=== PATIENT | male | born 1955 | race Caucasian/White ===

== ENCOUNTER 2021-09-16 13:37 | Emergency (ER) | payer OTHER ==
[2021-09-16 14:31] LABS: Absolute Lymphocytes (CBC) 1.5 K/uL (0.7-4.9); Basophils % 1.8 % (0-1.3); Hematocrit 40.3 % (39.6-49.0); Lymphocytes % 24.1 % (15.3-44.8); MPV 7.8 fL (7.6-11.3); RBC Red Blood Cell Count 4.63 M/uL (4.33-5.43)
[2021-09-16 14:48] LABS: ALT/SGPT 20 U/L (12-78); AST/SGOT 13 U/L (15-37); Alkaline Phosphatase 58 U/L (45-117); BUN Blood Urea Nitrogen 24 mg/dL (7-18); Bicarbonate 32 mmol/L (21-32); Bilirubin Direct < 0.1 mg/dL (0-0.2); Bilirubin Total 0.2 mg/dL (0.2-1.0); Glucose Level 115 mg/dL (74-106); Lipase 90 U/L (73-393); Potassium 4.4 mmol/L (3.5-5.1); Protein, Total 7.7 g/dL (6.4-8.2); Sodium Level 141 mmol/L (136-145)
--- NOTE | 2021-09-16 15:08 | ER ---
Nurse's Notes [facility] Name: Yovanny Post Age: 66 yrs Sex: Male : 1955 Arrival Date: 09/16/2021 Time: 13:40 Bed 6 Private MD: Diagnosis: Normal exam. Normal lab values. Presentation: 09/16 13:40 Chief complaint: EMS states: VSS. Sent in for K and NA elevation. Coronavirus screen: ll1 Client denies travel out of the [place] in the last 14 days. At this time, the client does not indicate any symptoms associated with coronavirus-19. Ebola Screen: Patient denies travel to an Ebola-affected area in the 21 days before illness onset. Risk Assessment: Do you want to hurt yourself or someone else? Patient reports no desire to harm self or others. Onset of symptoms was September 16, 2021. 13:40 Method Of Arrival: EMS: [facility] 13:40 Acuity: SONNY 3 [facility] 13:45 Initial Sepsis Screen: Does the patient meet any 2 criteria? No. Patient's initial 1 sepsis screen is negative. Does the patient have a suspected source of infection? No. Patient's initial sepsis screen is negative. 13:53 Chief complaint: Patient states: No complaints. 1 Triage Assessment: 13:45 General: Appears in no apparent distress. comfortable, Behavior is cooperative, bp appropriate for age, fussy. Pain: Denies pain. EENT: BLIND BASELINE. Neuro: Oriented to Appropriate for age LEFT SIDED HEMIPLEGIA FROM PREVIOUS CVA. Cardiovascular: No deficits noted. Respiratory: No deficits noted. GI: No signs and/or symptoms were reported involving the gastrointestinal system. : No signs and/or symptoms were reported regarding the genitourinary system. Derm: No deficits noted. Musculoskeletal: No deficits noted. Historical: - Allergies: 13:41 No Known Allergies; ll1 - PMHx: 13:43 stroke; insomnia; depression; neuropathy; GERD; Osteoarthritis; rhabdomyolysis; UTI; ll1 prostate problems; - PSHx: 13:43 Unable to Obtain; ll1 - Immunization history:: Adult Immunizations up to date, Client reports receiving the 2nd dose of the Covid vaccine. - Social history:: Smoking status: Patient reports the use of cigarette tobacco products, smokes one pack cigarettes per day. Screenin:45 Abuse screen: Denies threats or abuse. Denies injuries from another. Nutritional bp screening: No deficits noted. Tuberculosis screening: No symptoms or risk factors identified. Fall Risk None identified. Assessment: 13:45 Reassessment: SEE TRIAGE NOTE. bp 15:19 Reassessment: No changes from previously documented assessment. Patient and/or family bp updated on plan of care and expected duration. Pain level reassessed. CLINICALS FAXED TO [facility] FOR EVAL BY FRAN. 15:43 Reassessment: EMS AT B/S FOR TRANSPORT HOME. bp Vital Signs: 13:53 BP 155 / 93; Pulse 97; Resp 20; Temp 97.9; Pulse Ox 92% on R/A; Weight 82.55 kg; Height ll1 5 ft. 8 in. (172.72 cm); Pain 0/10; 15:49 BP 143 / 81; Pulse 98; Resp 15; Pulse Ox 100% ; bp 13:53 Body Mass Index 27.67 (82.55 kg, 172.72 cm) ll1 ED Course: 13:40 Patient arrived in ED. ll1 13:40 Abiodun Connolly MD is Attending Physician. sp3 13:41 Triage completed. ll1 13:42 Arm band placed on Patient placed in an exam room, on a stretcher. ll1 13:44 Panfilo Cabrera RN is Primary Nurse. bp 13:45 Patient has correct armband on for positive identification. Bed in low position. Call bp light in reach. Side rails up X2. 13:53 EKG done, by ED staff, reviewed by Abiodun Connolly MD. em1 15:45 No provider procedures requiring assistance completed. IV discontinued. bp Administered Medications: No medications were administered Outcome: 15:08 Discharge ordered by . sp3 15:45 Discharged to snf. Report called to [facility] bp 15:45 Condition: stable 15:45 Discharge instructions given to patient, snf, Instructed on discharge instructions, follow up and referral plans. medication usage. 15:52 Patient left the ED. iw Signatures: Mary Anne Arredondo RN RN iw Martinez, Eric em1 Panfilo Cabrera RN RN bp Lewis, Lynsay, RN RN ll1 Abiodun Connolly MD MD sp3 Corrections: (The following items were deleted from the chart) 13:55 13:43 Social history: Smoking status: unknown ll1 ll1
--- NOTE | 2021-09-16 15:09 | EDPHYS ---
Physician Documentation [facility] Name: Yovanny Post Age: 66 yrs Sex: Male : 1955 Arrival Date: 09/16/2021 Time: 13:40 Bed 6 Private MD: ED Physician Abiodun Connolly HPI: 09/16 13:44 This 66 yrs old Male presents to ER via EMS with complaints of Abnormal Lab sp3 Results. 13:44 66-year-old male with a history of prior CVA who is presenting from care home via sp3 EMS for chief complaint abnormal laboratory values. Patient and EMS state that his sodium and potassium levels were abnormal with a sodium level of 159. Patient has no complaints whatsoever and denies headache, neck pain, chest pain, shortness breath, abdominal pain, nausea, vomiting, diarrhea, back pain, rash, focal neurological complaints, syncope, change in baseline strength, or any other findings at this time.. Historical: - Allergies: 13:41 No Known Allergies; ll1 - PMHx: 13:43 stroke; insomnia; depression; neuropathy; GERD; Osteoarthritis; rhabdomyolysis; UTI; ll1 prostate problems; - PSHx: 13:43 Unable to Obtain; ll1 - Immunization history:: Adult Immunizations up to date, Client reports receiving the 2nd dose of the Covid vaccine. - Social history:: Smoking status: Patient reports the use of cigarette tobacco products, smokes one pack cigarettes per day. ROS: 13:45 Constitutional: Negative for fever, chills, and weight loss, Eyes: Negative for injury, sp3 pain, redness, and discharge, ENT: Negative for injury, pain, and discharge, Neck: Negative for injury, pain, and swelling, Cardiovascular: Negative for chest pain, palpitations, and edema, Respiratory: Negative for shortness of breath, cough, wheezing, and pleuritic chest pain, Abdomen/GI: Negative for abdominal pain, nausea, vomiting, diarrhea, and constipation, Back: Negative for injury and pain, MS/Extremity: Negative for injury and deformity, Skin: Negative for injury, rash, and discoloration, Neuro: Negative for headache, weakness, numbness, tingling, and seizure, Psych: Negative for depression, anxiety, suicide ideation, homicidal ideation, and hallucinations, Allergy/Immunology: Negative for hives, rash, and allergies, Endocrine: Negative for neck swelling, polydipsia, polyuria, polyphagia, and marked weight changes, Hematologic/Lymphatic: Negative for swollen nodes, abnormal bleeding, and unusual bruising. 13:45 All other systems are negative. Exam: 13:45 Constitutional: This is a well developed, well nourished patient who is awake, alert, sp3 and in no acute distress. Head/Face: Normocephalic, atraumatic. Eyes: Pupils equal round and reactive to light, extra-ocular motions intact. Lids and lashes normal. Conjunctiva and sclera are non-icteric and not injected. Cornea within normal limits. Periorbital areas with no swelling, redness, or edema. ENT: Nares patent. No nasal discharge, no septal abnormalities noted. External auditory canals are clear. Oropharynx with no redness, swelling, or masses, exudates, or evidence of obstruction, uvula midline. Mucous membranes moist. Neck: Trachea midline, no thyromegaly or masses palpated, and no cervical lymphadenopathy. Supple, full range of motion without nuchal rigidity, or vertebral point tenderness. No Meningismus. Chest/axilla: Normal chest wall appearance and motion. Nontender with no deformity. No lesions are appreciated. Cardiovascular: Regular rate and rhythm with a normal S1 and S2. No gallops, murmurs, or rubs. Normal PMI, no JVD. No pulse deficits. Respiratory: Lungs have equal breath sounds bilaterally, clear to auscultation and percussion. No rales, rhonchi or wheezes noted. No increased work of breathing, no retractions or nasal flaring. Abdomen/GI: Soft, non-tender, with normal bowel sounds. No distension or tympany. No guarding or rebound. No evidence of tenderness throughout. Back: No spinal tenderness. No costovertebral tenderness. Full range of motion. Skin: Warm, dry with normal turgor. Normal color with no rashes, no lesions, and no evidence of cellulitis. MS/ Extremity: Pulses equal, no cyanosis. Neurovascular intact. Full, normal range of motion. Psych: Awake, alert, with orientation to person, place and time. Behavior, mood, and affect are within normal limits. 13:45 Neuro: Old left-sided deficits otherwise grossly negative neurological exam. Patient's mentation and mental status are normal.. Vital Signs: 13:53 BP 155 / 93; Pulse 97; Resp 20; Temp 97.9; Pulse Ox 92% on R/A; Weight 82.55 kg; Height ll1 5 ft. 8 in. (172.72 cm); Pain 0/10; 15:49 BP 143 / 81; Pulse 98; Resp 15; Pulse Ox 100% ; bp 13:53 Body Mass Index 27.67 (82.55 kg, 172.72 cm) ll1 MDM: 13:41 Patient medically screened. sp3 13:46 Data reviewed: vital signs, nurses notes, EMS record. ED course: Patient presents with sp3 abnormal labs. Will obtain repeat laboratory values, EKG, and observation. Patient is stable and in no acute distress.. 15:07 ED course: EKG demonstrates normal sinus rhythm at 94 bpm with no peak T waves or other sp3 abnormalities. Nonspecific ST/T changes, normal QRS, normal intervals.. ED course: Today's laboratory values demonstrate a normal sodium and a normal potassium. BUN and creatinine are elevated consistent with prior laboratory values in the same range. At this time given that patient feels completely normal and at baseline there is no need for further work-up. We will discharge back to the care home at this time.. 09/16 13:43 Order name: Basic Metabolic Panel; Complete Time: 15:04 sp3 09/16 13:43 Order name: CBC with Diff; Complete Time: 15:04 sp3 09/16 13:43 Order name: Hepatic Function; Complete Time: 15:04 sp3 09/16 13:43 Order name: Lipase; Complete Time: 15:04 sp3 09/16 13:43 Order name: IV Saline Lock; Complete Time: 14:35 sp3 09/16 13:43 Order name: Labs collected and sent; Complete Time: 14:35 sp3 09/16 13:44 Order name: EKG - Nurse/Tech; Complete Time: 13:53 sp3 Administered Medications: No medications were administered Disposition Summary: 09/16/21 15:08 Discharge Ordered Location: Home sp3 Condition: Stable sp3 Diagnosis - Normal exam. Normal lab values. sp3 Followup: sp3 - With: Private Physician - When: - Reason: Continuance of care Discharge Instructions: - Discharge Summary Sheet sp3 - Health Maintenance After Age 66 sp3 Forms: - Medication Reconciliation Form sp3 - Thank You Letter sp3 - Antibiotic Education sp3 - Prescription Opioid Use sp3 Signatures: Dispatcher [employer] Librado Glynn RN RN ll1 Abiodun Connolly MD MD sp3 Corrections: (The following items were deleted from the chart) 13:55 13:43 Social history: Smoking status: unknown 1 1
[2021-09-16 16:04] VITALS: BP 155/93; TEMP 97.9; O2SAT 92
--- NOTE | 2021-09-18 11:27 | EKG ---
Test Date: 2021-09-16 Test Time: 13:52:33 Warehouse Sorter: MANISHA MEASUREMENT RESULTS: Intervals: Rate: 94 ID: [id number] QRSD: 70 QT: 364 QTc: 455 Carter: P: 67 ID: [id number] QRS: 81 T: 52 INTERPRETIVE STATEMENTS: Normal sinus rhythm ST abnormality, possible digitalis effect Abnormal ECG No previous ECG available for comparison Electronically Signed On 09-18-21 11:21:01 FOOD COUNTER ATTENDANT by Gelacio Acevedo
--- OUTSIDE RECORDS SUMMARY | 2021-09-21 16:26 | XMS REPORT | Continuity of Care Document ---
:1955 Author Organization [facility] t Address [address] [place] [address] Care Team Providers Name Role Phone HAYES CONNOR M.D. Attending Clinician Unavailable Problems Condition Condition Condition Status Onset Resolution Last Treating Co mments Source Name Details Category Date Date Treatment Clinician Date Psoriatic Psoriatic Problem Active [facility] arthritis arthritis [facility] [place] [facility] Long-term Long-term Problem Active [facility] vers use of use of [facility] [place]risk [place] medication medication [facility] ans History of History of Problem Resolve [facility] psoriasis psoriasis d [facility] [place] [facility] H/O H/O Problem Resolve [facility] completed completed d ity of stroke stroke [place] [facility] History of History of Problem Resolve [facility] Disorder Disorder d ity of of bile of bile [place] acid and acid and Physic i cholestero cholestero an s l l metabolism metabolism , , unspecifie unspecifie d d History of History of Problem Resolve Univers gastroesop gastroesop d it y of hageal hageal [place] reflux reflux Physici (GERD) (GERD) ans History of History of Problem Resolve [facility] gout gout d [facility] [place] [facility] History of History of Problem Resolve Univers hypertensi hypertensi d it y of on on [place] [facility] History of History of Problem Resolve Univers Multiple Multiple d [place] joint pain [place] pain [place] [facility] Allergies, Adverse Reactions, Alerts This patient has no known allergies or adverse reactions. Social History Smoking Status Start Date Stop Date Source Never smoker [facility] Medications Ordered Filled Start Stop Current Ordering Indication Dosage Frequency Signature Comments Components Source Medication Medication Date Date Medication? Clinician (SIG) Name Name Enbrel Enbrel Yes HAYES INJECT 50 Un alina SureClick SureClick 6-12 NIKOLAS Brito MCG Weekly ity of 50 MG/ML 50 MG/ML 00:00: [place] Subcutaneou Subcutaneou 00 P hysici s Solution s Solution ans Auto-inject Auto-inject or or Enbrel Enbrel Yes Univers SureClick SureClick ity o f 50 MG/ML 50 MG/ML [place] Subcutaneou Subcutaneou P hysici s Solution s Solution ans Auto-inject Auto-inject or or Humira 40 Humira 40 Yes Unive rs MG/0.8ML MG/0.8ML ity of Subcutaneou Subcutaneou [place] Prefilled s Prefilled P hysici Syringe Kit Syringe Kit a ns Enpresse-28 Enpresse-28 Yes U nivers TABS TABS [facility] [place] [facility] NIFEdipine NIFEdipine Yes Uni vers TBCR TBCR [facility] [place] [facility] Vitamin C Vitamin C Yes Unive rs CAPS CAPS [facility] [place] [facility] Ranitidine Ranitidine Yes Uni vers TABS TABS [facility] [place] [facility] Gabapentin Gabapentin Yes Uni vers TABS TABS [facility] [place] [facility] Allopurinol Allopurinol Yes U nivers TABS TABS [facility] [place] [facility] Atorvastati Atorvastati Yes U nivers n Calcium n Calcium ity o f TABS TABS [place] [facility] Vital Signs Vital Name Observation Time Observation Value Comments Source BP Systolic 2019-04-20 16:49:00 132 mm[Hg] [facility] BP Diastolic 2019-04-20 16:49:00 76 mm[Hg] [facility] Heart Rate 2019-04-20 16:49:00 99 /min [facility] Procedures Procedure Date / Time Performed Performing Clinician Sourc e [QLH] CBC (INCLUDES 2019-04-20 00:00:00 [facility] DIFF/PLT) Physicians [QLH] HEPATIC FUN[facility] 2019-04[facility]20 [facility] [QLH] C-REACTIVE 2019-04-20 00:00:00 [facility] PROTEIN Physicians [QL] SED RATE BY 2019-04-20 00:00:00 [facility] MODIFIED WESTERGREN Physicians [L] QuantiFERON-TB 2019-04-20 00:00:00 [facility] Gold Plus Physicians [QLH] CREATININE 2019-04-20 00:00:00 [facility] W/EGFR Physicians Plan of Care Planned Activity Planned Date Details Comments Source Diagnostic Test 2019-09-09 [QL] CBC (INCLUDES [facility] Pending 00:00:00 DIFF/PLT) [code = Physicians [QL] CBC (INCLUDES DIFF/PLT)] Diagnostic Test 2019-09-09 [QLH] HEPATIC [facility] Pending 00:00:00 FUNCTION PANEL [code Physici ans = [QL] HEPATIC FUNCTION PANEL] Diagnostic Test 2019-09-09 [QLH] C-REACTIVE [facility] Pending 00:00:00 PROTEIN [code = Physicians [QL] C-REACTIVE PROTEIN] Diagnostic Test 2019-09-09 [QLH] SED RATE BY [facility] Pending 00:00:00 MODIFIED WESTERGREN Physicia ns [code = [QL] SED RATE BY MODIFIED WESTERGREN] Diagnostic Test 2019-09-09 [L] QuantiFERON-TB [facility] Pending 00:00:00 Gold Plus [code = Physicians [L] QuantiFERON-TB Gold Plus] Diagnostic Test 2019-09-09 [QLH] CREATININE [facility] Pending 00:00:00 W/EGFR [code = [QL] Physici ans CREATININE W/EGFR] Diagnostic Test 2019-09-09 [QL] CBC (INCLUDES [facility] Pending 00:00:00 DIFF/PLT) [code = Physicians [QL] CBC (INCLUDES DIFF/PLT)] Diagnostic Test 2019-09-09 [QL] HEPATIC [facility] Pending 00:00:00 FUNCTION PANEL [code Physici ans = [QL] HEPATIC FUNCTION PANEL] Diagnostic Test 2019-09-09 [QLH] C-REACTIVE [facility] Pending 00:00:00 PROTEIN [code = Physicians [QL] C-REACTIVE PROTEIN] Diagnostic Test 2019-09-09 [QLH] SED RATE BY [facility] Pending 00:00:00 MODIFIED WESTERGREN Physicia ns [code = [QLH] SED RATE BY MODIFIED WESTERGREN] Diagnostic Test 2019-09-09 [L] QuantiFERON-TB [facility] Pending 00:00:00 Gold Plus [code = Physicians [L] QuantiFERON-TB Gold Plus] Diagnostic Test 2019-09-09 [QLH] CREATININE [facility] [place] Pending 00:00:00 W/EGFR [code = [[facility]] Physici ans CREATININE W/EGFR] Encounters Start End Encounter Admission Attending Care Care Encounter Source Date/Time Date/Time Type Type Clinicians Facility Department ID 2020-06-15 2020-06-15 Inpatient E [facility] MED [id number] 20:20:00 17:45:00 2019-04-20 2019-04-20 ANA Connolly Multispecia [id number] Univers 15:45:00 15:45:00 t; HAYES CONNOR [facility] 2019-04-06 2019-04-06 ANA Connolly [id number] Univers 16:00:00 16:00:00 t; HAYES CONNOR Orthopedic i ty sofy KOO M.D. [facility] [place] [facility] Trace 1 ans 2018-07-16 2018-07-16 ANA Connolly [facility] [id number] Univers 15:15:00 15:15:00 t; HAYES CONNOR [facility] [place], M.D. [place] M.D. Physici ans 2017-10-23 2017-10-23 ANA Connolly [facility] [id number] Univers 09:00:00 09:00:00 t; HAYES CONNOR [facility] [place], M.D. [place] M[facility]D. Physici ans 2017-09-16 2017-09-16 ANA Connolly [id number] Univers 09:30:00 09:30:00 t; HAYES CONNOR [facility] [place], M.D. [place] M.D. Physici ans 2017-06-05 2017-06-05 ANA Connolly [id number] Univers 08:30:00 08:30:00 t; HAYES CONNOR [facility] [place], M.D. [place] M.D. Physici ans Results This patient has no known results.
== END 2021-09-16 15:52 | disposition home or self-care (01) ==
LOC: ER 13:37
DX: Z71.1 Person with feared health complaint in whom no diagnosis is made (principal)
CPT/HCPCS: 36415; 80048; 80076; 83690; 85025; 93005; 99283

== ENCOUNTER 2022-05-06 16:45 | Inpatient (IN) | payer OTHER ==
--- OUTSIDE RECORDS SUMMARY | 2022-05-06 16:48 | XMS REPORT | Continuity of Care Document ---
:1955 Author Organization [facility] t Address [address] [place] [address] Care Team Providers Name Role Phone CYN BELTRAN Attending Clinician Unavailable HAYES CONNOR M.D. Attending Clinician Unavailable CYN BELTRAN Admitting Clinician Unavailable Problems Condition Condition Condition Status Onset Resolution Last Treating Co mments Source Name Details Category Date Date Treatment Clinician Date Psoriatic Psoriatic Problem Active [facility] arthritis arthritis Phys ici ans Long-term Long-term Problem Active [facility] use of use of Physici high-risk high-risk ans medication medication History of History of Problem Resolve [facility] psoriasis psoriasis d Phys ici ans H/O H/O Problem Resolve UT completed completed d Phys ici stroke stroke ans History of History of Problem Resolve UT Disorder Disorder d Physic i of bile of bile ans acid and acid and cholestero cholestero l l metabolism metabolism , , unspecifie unspecifie d d History of History of Problem Resolve UT gastroesop gastroesop d Ph ysici hageal hageal ans reflux reflux (GERD) (GERD) History of History of Problem Resolve UT gout gout d Physici ans History of History of Problem Resolve UT hypertensi hypertensi d Ph ysici on on ans History of History of Problem Resolve UT Multiple Multiple d Physic i joint pain joint pain an s Allergies, Adverse Reactions, Alerts This patient has no known allergies or adverse reactions. Social History Smoking Status Start Date Stop Date Source Never smoker [facility] Medications Ordered Filled Start Stop Current Ordering Indication Dosage Frequency Signature Comments Components Source Medication Medication Date Date Medication? Clinician (SIG) Name Name Enbrel Enbrel 2019-0 Yes FAYYAZ INJECT 50 [facility] SureClick SureClick 6-12 NIKOLAS Brito MCG Weekly Physici 50 MG/ML 50 MG/ML 00:00: ans Subcutaneou Subcutaneou 00 s Solution s Solution Auto-inject Auto-inject or or Enbrel Enbrel Yes UT SureClick SureClick Physi ci 50 MG/ML 50 MG/ML ans Subcutaneou Subcutaneou s Solution s Solution Auto-inject Auto-inject or or Humira 40 Humira 40 Yes UT MG/0.8ML MG/0.8ML Physici Subcutaneou Subcutaneou a ns s Prefilled s Prefilled Syringe Kit Syringe Kit Enpresse-28 Enpresse-28 Yes U T TABS TABS Physici ans NIFEdipine NIFEdipine Yes UT TBCR TBCR Physici ans Vitamin C Vitamin C Yes UT CAPS CAPS Physici ans Ranitidine Ranitidine Yes UT TABS TABS Physici ans Gabapentin Gabapentin Yes UT TABS TABS Physici ans Allopurinol Allopurinol Yes U T TABS TABS Physici ans Atorvastati Atorvastati Yes U T n Calcium n Calcium Physi ci TABS TABS ans Vital Signs Vital Name Observation Time Observation Value Comments Source BP Systolic 2019-04-20 16:49:00 132 mm[Hg] [facility] BP Diastolic 2019-04-20 16:49:00 76 mm[Hg] [facility] Heart Rate 2019-04-20 16:49:00 99 /min [facility] Procedures Procedure Date / Time Performed Performing Clinician Sourc e [QLH] CBC (INCLUDES 2019-04-20 00:00:00 [facility] DIFF/PLT) [QLH] HEPATIC FUNCTION PANEL 2019-04-20 00:00:00 [facility] [QLH] C-REACTIVE PROTEIN 2019-04-20 00:00:00 [facility] [QLH] SED RATE BY MODIFIED 2019-04-20 00:00:00 [facility] WESTERGREN [L] QuantiFERON-TB Gold Plus 2019-04-20 00:00:00 [facility] [QLH] CREATININE W/EGFR 2019-04-20 00:00:00 [facility] Plan of Care Planned Activity Planned Date Details Comments Source Diagnostic Test 2019-09-09 00:00:00 [L] QuantiFERON-TB [facility] Pending Gold Plus [code = [L] QuantiFERON-TB Gold Plus] Diagnostic Test 2019-09-09 00:00:00 [QLH] CREATININE [facility] Pending W/EGFR [code = [QLH] CREATININE W/EGFR] Diagnostic Test 2019-09-09 00:00:00 [QLH] CBC (INCLUDES [facility] Pending DIFF/PLT) [code = [QLH] CBC (INCLUDES DIFF/PLT)] Diagnostic Test 2019-09-09 00:00:00 [QLH] HEPATIC [facility] Pending FUNCTION PANEL [code = [QLH] HEPATIC FUNCTION PANEL] Diagnostic Test 2019-09-09 00:00:00 [QLH] C-REACTIVE [facility] Pending PROTEIN [code = [QLH] C-REACTIVE PROTEIN] Diagnostic Test 2019-09-09 00:00:00 [QLH] SED RATE BY [facility] Pending MODIFIED WESTERGREN [code = [QLH] SED RATE BY MODIFIED WESTERGREN] Diagnostic Test 2019-09-09 00:00:00 [L] QuantiFERON-TB [facility] Pending Gold Plus [code = [L] QuantiFERON-TB Gold Plus] Diagnostic Test 2019-09-09 00:00:00 [QLH] CREATININE [facility] Pending W/EGFR [code = [QLH] CREATININE W/EGFR] Diagnostic Test 2019-09-09 00:00:00 [QLH] CBC (INCLUDES [facility] Pending DIFF/PLT) [code = [QLH] CBC (INCLUDES DIFF/PLT)] Diagnostic Test 2019-09-09 00:00:00 [QLH] HEPATIC [facility] Pending FUNCTION PANEL [code = [QLH] HEPATIC FUNCTION PANEL] Diagnostic Test 2019-09-09 00:00:00 [QLH] C-REACTIVE [facility] Pending PROTEIN [code = [QLH] C-REACTIVE PROTEIN] Diagnostic Test 2019-09-09 00:00:00 [QLH] SED RATE BY [facility] Pending MODIFIED WESTERGREN [code = [QLH] SED RATE BY MODIFIED WESTERGREN] Encounters Start End Encounter Admission Attending Care Care Encounter Source Date/Time Date/Time Type Type Clinicians Facility Department ID 2020-06-15 2020-06-22 Inpatient E [facility] [id number] [facility] 20:20:00 15:10:00 , ROSEMIN 2019-04-20 2019-04-20 Appointmen ANA CONNOR Multispecia [id number] [place] 15:45:00 15:45:00 t; HAYES CONNOR lty - Daryl Jones M.D. 2019-04-06 2019-04-06 Appointmen ANA CONNOR [facility] [id number] [place] 16:00:00 16:00:00 t; HAYES CONNOR Orthopedic P hysijulián KOO M.D. Surgery - fifi Brito [address] 1 2018-07-16 2018-07-16 AppointANA Britt [facility] [id number] [place] 15:15:00 15:15:00 t; HAYES CONNOR Phys ici FAYYAZ, M.D. ans M.D. 2017-10-23 2017-10-23 Appointmen ANA CONNOR [facility] [id number] [place] 09:00:00 09:00:00 t; HAYES CONNOR Phys ici FAYYAZ, M.D. ans M.D. 2017-09-16 2017-09-16 Appointmen ANA CONNOR [facility] [id number] [place] 09:30:00 09:30:00 t; HAYES CONNOR Phys ici FAYYAZ, M.D. ans M.D. 2017-06-05 2017-06-05 Appointmen ANA CONNOR [facility] [id number] [place] 08:30:00 08:30:00 t; HAYES CONNOR Phys ici FAYYAZ, M.D. ans M.D. Results This patient has no known results.
[2022-05-06 17:39] LABS: Absolute Lymphocytes (CBC) 1.1 K/uL (0.7-4.9); Hematocrit 42.5 % (39.6-49.0); Lymphocytes % 19.7 % (15.3-44.8); MCV 83.5 fL (80-100); RBC Red Blood Cell Count 5.09 M/uL (4.33-5.43)
[2022-05-06] MEDS ORDERED: ASPIRIN 81 MG CHEWABLE TABLET ONE (17:41)
[2022-05-06] MEDS ORDERED: CEFTRIAXONE 1000 MG/VIAL ONE (17:41)
[2022-05-06] MEDS ORDERED: ACETAMINOPHEN 500 MG TAB ONE (17:41)
[2022-05-06] MEDS ORDERED: NA CHLORIDE 0.9% 50 ML ONE (17:42)
[2022-05-06] MEDS ORDERED: NA CHLORIDE 0.9% 250 ML ONE (17:42)
[2022-05-06] MEDS ORDERED: LEVALBUTEROL 1.25 MG/3 ML NEB ONE (17:42)
[2022-05-06] MEDS ORDERED: AZITHROMYCIN 500 MG INJ IVPB ONE (17:42)
[2022-05-06] MEDS ORDERED: IPRATROPIUM BROM 0.5MG/2.5ML ONE (17:42)
[2022-05-06 17:43] LABS: Protime INR 1.04
--- NOTE | 2022-05-06 17:48 | RAD REPORT ---
EXAM DESCRIPTION: RAD - Chest Single View - 05/06/2022 5:33 pm CLINICAL HISTORY: COUGH Chest pain. COMPARISON: No comparisons FINDINGS: Portable technique limits examination quality. The lungs are emphysematous but grossly clear. The heart is normal in size. No displaced fractures. IMPRESSION: Mild COPD.
[2022-05-06 18:04] LABS: Albumin 3.4 g/dL (3.4-5.0); Bilirubin Direct 0.1 mg/dL (0-0.2); Bilirubin Total 0.3 mg/dL (0.2-1.0); C-Reactive Protein 34.1 mg/L (<3.00); Ferritin 89.2 ng/mL (26-388); Magnesium 1.5 mg/dL (1.8-2.4); Potassium 3.6 mmol/L (3.5-5.1); Protein, Total 7.2 g/dL (6.4-8.2)
[2022-05-06 18:08] LABS: Troponin High Sensitivity 81.6 pg/mL (<58.9)
[2022-05-06] MEDS ORDERED: dexAMETHasone 10 MG/ML VIAL ONE (18:16)
[2022-05-06] MEDS ORDERED: NA CHLORIDE 0.9% 1,000 ML ONE (18:16)
[2022-05-06 18:38] LABS: Urine Blood Negative (Negative); Urine Glucose Negative (Negative); Urine Protein Negative (Negative); Urine pH 6.5 (5.0-7.0)
[2022-05-06 19:00] LABS: Urine Bacteria NONE SEEN /HPF (NONE SEEN); Urine RBC NONE SEEN /HPF (NONE SEEN)
--- NOTE | 2022-05-06 19:31 | EDPHYS ---
Physician Documentation [facility] Name: Yovanny Post Age: 66 yrs Sex: Male : 1955 Arrival Date: 05/06/2022 Time: 16:50 Bed 2 Private MD: ED Physician Kyree Rg HPI: 05/06 17:05 This 66 yrs old Male presents to ER via EMS with complaints of Shortness of Breath. cp 17:05 The patient has shortness of breath at rest. Onset: The symptoms/episode began/occurred cp today. 17:05 Duration: The symptoms are continuous, and are steadily getting worse. Associated signs cp and symptoms: Pertinent positives: productive cough, fever, Pertinent negatives: chest pain, diaphoresis, hemoptysis. Severity of symptoms: in the emergency department the symptoms have improved mildly. Patient is a resident of [facility] and was diagnosed with COVID-19 yesterday. EMS reports oxygen sats of 77% upon their arrival. Patient now requiring supplemental oxygen. Historical: - Allergies: 16:59 No Known Allergies; jb4 - PMHx: 16:59 Depression; insomnia; GERD; neuropathy; osteoarthritis; prostate problems; jb4 rhabdomyolysis; stroke; UTI; - Immunization history:: Adult Immunizations up to date. - Social history:: Smoking status: Patient reports the use of cigarette tobacco products, smokes one-half pack cigarettes per day, Patient uses alcohol. ROS: 17:10 Constitutional: Positive for body aches, fever. cp 17:10 Eyes: Negative for injury, pain, redness, and discharge. cp 17:10 Respiratory: Positive for cough, "sounds productive", shortness of breath. 17:10 ENT: Negative for drainage from ear(s), ear pain, sore throat, difficulty swallowing, cp difficulty handling secretions. 17:10 Cardiovascular: Negative for chest pain, edema, palpitations. 17:10 Abdomen/GI: Negative for abdominal pain, vomiting, diarrhea, constipation. 17:10 Neuro: Negative for altered mental status, headache, syncope. 17:10 All other systems are negative. Exam: 17:15 Constitutional: The patient appears in no acute distress, alert, awake, cp non-diaphoretic, non-toxic, well developed, well nourished. 17:15 Head/Face: Normocephalic, atraumatic. cp 17:15 Eyes: Periorbital structures: appear normal, Pupils: equal, round, and reactive to cp light and accomodation, Extraocular movements: intact throughout, Conjunctiva: normal, no exudate, no injection, Sclera: no appreciated abnormality, Lids and lashes: appear normal, bilaterally. 17:15 ENT: External ear(s): are unremarkable, Ear canal(s): are normal, clear, TM's: dullness, bilaterally, Nose: is normal, Mouth: Lips: moist, Oral mucosa: moist, Posterior pharynx: Airway: no evidence of obstruction, patent, Tonsils: are normal in appearance, swelling, is not appreciated, erythema, is not appreciated, exudate, is not appreciated. 17:15 Neck: ROM/movement: is normal, is supple, without pain, no range of motions limitations, no meningismus. 17:15 Chest/axilla: Inspection: normal. 17:15 Cardiovascular: Rate: tachycardic, Rhythm: irregular, Edema: is not appreciated, JVD: is not appreciated. 17:15 Respiratory: mild respiratory distress is noted, Respirations: labored breathing, cp shallow respirations, Breath sounds: bronchial sounds, that are moderate, are heard diffusely, stridor, is not appreciated, + upper airway congestion. wheezing: is not appreciated. 17:15 Abdomen/GI: Inspection: abdomen appears normal, Bowel sounds: active, all quadrants, Palpation: abdomen is soft and non-tender, in all quadrants. 17:15 Back: pain, is absent, ROM is normal. 17:15 Skin: cellulitis, is not appreciated, no rash present. 17:15 Neuro: Orientation: to person, place \\T\\ time. Mentation: is normal, Motor: moves all fours, strength is normal, Sensation: is normal. 17:25 ECG was reviewed by the Attending Physician. cp Vital Signs: 16:50 BP 162 / 76; Pulse 110; Resp 34; Temp 101.9; Pulse Ox 96% on 4 lpm NC; Weight 77.56 kg; jb4 Height 5 ft. 8 in. (172.72 cm); Pain 0/10; 18:20 BP 156 / 79; Pulse 108; Resp 33; Pulse Ox 93% on 2 lpm NC; jb4 19:04 Temp 98.2(O); jb4 19:30 BP 135 / 66; Pulse 105; Resp 26 S; Pulse Ox 91% on 3 lpm NC; aa9 21:35 BP 153 / 82; Pulse 96; Resp 26 S; Pulse Ox 93% on 3 lpm NC; aa9 16:50 Body Mass Index 26.00 (77.56 kg, 172.72 cm) jb4 MDM: 16:57 Patient medically screened. cp 19:20 Physician consultation: Coleen CHAVIRA was called at 19:20, was contacted at 19:20, cp regarding admission, to the telemetry unit. patient's condition. 20:35 Data reviewed: vital signs, nurses notes, lab test result(s), EKG, radiologic studies, cp CT scan, plain films. 20:35 Test interpretation: by ED physician or midlevel provider: ECG, plain radiologic cp studies. 05/06 16:57 Order name: Basic Metabolic Panel; Complete Time: 18:29 cp 05/06 18:29 Interpretation: Normal except: CRE 1.46; GFR 53. cp 05/06 16:57 Order name: CBC with Diff; Complete Time: 17:51 cp 05/06 17:51 Interpretation: Normal except: MCH 26.8; RDW 18.9; MN% 17.3. cp 05/06 16:57 Order name: LFT's; Complete Time: 18:29 cp 05/06 18:29 Interpretation: Normal except: AST 62; ALK 41; GLOB 3.8; A/G 0.9. cp 05/06 16:57 Order name: Magnesium; Complete Time: 18:29 cp 05/06 16:57 Order name: NT PRO-BNP; Complete Time: 18:29 cp 05/06 16:57 Order name: PT-INR; Complete Time: 17:51 cp 05/06 16:57 Order name: Troponin HS; Complete Time: 18:29 cp 05/06 16:57 Order name: CRP; Complete Time: 18:29 cp 05/06 16:57 Order name: Ferritin; Complete Time: 18:29 cp 05/06 16:57 Order name: Blood Culture Adult (2) cp 05/06 16:57 Order name: Lactate; Complete Time: 18:29 cp 05/06 16:57 Order name: Procalcitonin; Complete Time: 18:29 cp 05/06 16:57 Order name: Urine Microscopic Only; Complete Time: 19:14 cp 05/06 16:57 Order name: Influenza Screen (a \\T\\ B); Complete Time: 17:59 cp 05/06 16:57 Order name: XRAY Chest (1 view); Complete Time: 17:51 cp 05/06 16:57 Order name: EKG; Complete Time: 16:58 cp 05/06 16:57 Order name: COVID-19 SARS RT PCR (Document "Date of Onset" if Symptomatic); Complete cp Time: 19:14 05/06 18:33 Order name: CT Chest For PE Angio; Complete Time: 20:33 cp 05/06 18:39 Order name: Urine Dipstick-Ancillary; Complete Time: 19:14 EDMS 05/06 16:57 Order name: Cardiac monitoring; Complete Time: 17:01 cp 05/06 16:57 Order name: EKG - Nurse/Tech; Complete Time: 17:31 cp 05/06 16:57 Order name: IV Saline Lock; Complete Time: 17:31 cp 05/06 16:57 Order name: Labs collected and sent; Complete Time: 17:31 cp 05/06 16:57 Order name: O2 Per Protocol; Complete Time: 17:01 cp 05/06 16:57 Order name: O2 Sat Monitoring; Complete Time: 17:01 cp 05/06 16:57 Order name: Urine Dipstick-Ancillary (obtain specimen); Complete Time: 18:47 cp EC:25 Rate is 96 beats/min. Rhythm is irregular. QRS interval is normal. QT interval is cp normal. T waves are Inverted in lead aVR. Interpreted by me. Reviewed by me. Administered Medications: 17:45 Drug: Aspirin Chewable Tablet 324 mg Route: PO; jb4 21:59 Follow up: Response: No adverse reaction aa9 17:45 Drug: Tylenol 1000 mg Route: PO; jb4 22:00 Follow up: Response: No adverse reaction; Temperature is decreased aa9 17:45 Drug: Rocephin - (cefTRIAXone) 1 grams Route: IVPB; Infused Over: 30 mins; Site: right jb4 hand; 18:15 Follow up: Response: No adverse reaction; IV Status: Completed infusion; IV Intake: [id number] 17:52 Drug: Xopenex (levalbuterol) (3) 1.25 mg Route: Inhalation; jb4 17:52 Drug: AtroVENT (ipratropium) Aerosol 0.5 mg Route: Inhalation; jb4 17:52 CANCELLED (Physician Discretion): NS 0.9% (30 ml/kg) 30 ml/kg IV at bolus once; Sepsis cp Protocol 18:15 Drug: Zithromax (azithromycin) 500 mg Route: IVPB; Infused Over: 1 hrs; Site: right jb4 hand; 22:00 Follow up: Response: No adverse reaction; IV Status: Completed infusion; IV Intake: aa9 250ml 18:15 Drug: Decadron - Dexamethasone 6 mg Route: IVP; Site: right hand; jb4 18:47 Follow up: Response: No adverse reaction jb4 18:20 Drug: NS 0.9% 1000 ml Route: IV; Rate: 1 bolus; Site: right hand; jb4 22:00 Follow up: Response: No adverse reaction; IV Status: Completed infusion; IV Intake: aa9 1000ml 21:30 Drug: Magnesium Sulfate 1 grams Route: IVPB; Infused Over: 1 hrs; Site: right aa9 antecubital; 22:00 Follow up: IV Status: Infusion continued upon admission aa9 21:30 Drug: Lovenox (enoxaparin) 1 mg/kg Route: Sub-Q; Site: right lower abdomen; aa9 22:01 Follow up: Response: No adverse reaction aa9 Disposition Summary: 05/06/22 19:31 Hospitalization Ordered Hospitalization Status: Inpatient Admission cp Provider: Bulmaro Doan cp Location: Telemetry/MedSurg (Inpatient) cp Condition: Fair cp Problem: new cp Symptoms: have improved cp Bed/Room Type: Standard cp Room Assignment: 424(05/06/22 20:34) cg Diagnosis - SARS-associated coronavirus as the cause of diseases classified elsewhere cp - Unspecified atrial flutter cp - Hypoxemia cp Forms: - Medication Reconciliation Form cp - SBAR form cp Addendum: 05/14/2022 01:27 Co-signature as Attending Physician, Kyree Rg MD. r n Signatures: Dispatcher [employer] EDKyree Mcdowell MD MD rn Page, Corey, PA PA cp Garcia, Cindy, RN RN cg Bryson, James, RN RN jb4 Coleen Urbina PA PA sb3 Hawa Horta RN RN aa9 Corrections: (The following items were deleted from the chart) 05/06 17:39 17:38 This 66 yrs old Male presents to ER via EMS with complaints of Shortness of cp Breath. cp 17:52 17:00 NS 0.9% (30 ml/kg) 30 ml/kg IV at bolus once; Sepsis Protocol ordered. cp cp 20:34 19:31 cp cg
--- NOTE | 2022-05-06 19:31 | ER ---
Nurse's Notes [facility] Name: Yovanny Post Age: 66 yrs Sex: Male : 1955 Arrival Date: 05/06/2022 Time: 16:50 Bed 2 Private MD: Diagnosis: SARS-associated coronavirus as the cause of diseases classified elsewhere;Unspecified atrial flutter;Hypoxemia Presentation: 05/06 16:50 Chief complaint: EMS states: We were called for pt having low O2. He was on 2L at [address], satting 77% on RA. He was diagnosed with covid last night. Coronavirus screen: Client reports previous positive COVID test result. Date of collection: May 05, 2022. Ebola Screen: No symptoms or risks identified at this time. Initial Sepsis Screen: Does the patient meet any 2 criteria? RR > 20 per min. Temp <36.0*C (96.8*F)) or > 38.3*C (100.9*F). HR > 90 bpm. Yes Does the patient have a suspected source of infection? Yes: Productive cough/pneumonia If YES to both, name of provider notified: Marino CHAVIRA Risk Assessment: Do you want to hurt yourself or someone else? Patient reports no desire to harm self or others. Onset of symptoms was May 06, 2022. Transition of care: patient was not received from another setting of care. 16:50 Method Of Arrival: EMS: [facility] 16:50 Acuity: SONNY 2 jb4 Historical: - Allergies: 16:59 No Known Allergies; jb4 - PMHx: 16:59 Depression; insomnia; GERD; neuropathy; osteoarthritis; prostate problems; jb4 rhabdomyolysis; stroke; UTI; - Immunization history:: Adult Immunizations up to date. - Social history:: Smoking status: Patient reports the use of cigarette tobacco products, smokes one-half pack cigarettes per day, Patient uses alcohol. Screenin:00 Abuse screen: Denies threats or abuse. Nutritional screening: No deficits noted. jb4 Tuberculosis screening: No symptoms or risk factors identified. 22:01 Fall Risk Secondary diagnosis (15 points) CVA, IV access (20 points). Gait- Impaired aa9 (20 pts.). Total Garcia Fall Scale indicates High Risk Score (45 or more points). Fall prevention measures have been instituted. Side Rails Up X 2 Frequent Obs/Assessments Occuring. Assessment: 17:00 General: Appears in no apparent distress. uncomfortable, Behavior is calm, cooperative. jb4 Pain: Denies pain. Neuro: Level of Consciousness is awake, alert, obeys commands, Oriented to person, place, time, situation. Cardiovascular: Patient's skin is warm and dry. Respiratory: Airway is patent Respiratory effort is even, labored, Respiratory pattern is symmetrical, tachypnea Breath sounds are clear in right upper lobe and right posterior upper lobe Breath sounds with crackles in left upper lobe, right middle lobe, left lower lobe, right lower lobe, left posterior upper lobe, left posterior lower lobe, right posterior middle lobe and right posterior lower lobe Breath sounds are diminished in left upper lobe, left lower lobe, left posterior upper lobe and left posterior lower lobe. Derm: Skin is intact, Skin is. Musculoskeletal: Circulation, motion, and sensation intact. Range of motion: Intact on right side, paralyzed on left side. 18:00 Reassessment: Patient appears in no apparent distress at this time. Patient and/or jb4 family updated on plan of care and expected duration. Pain level reassessed. Patient is alert, oriented x 3, equal unlabored respirations, skin warm/dry/pink. 18:57 Reassessment: Patient appears in no apparent distress at this time. Patient and/or jb4 family updated on plan of care and expected duration. Pain level reassessed. Patient is alert, oriented x 3, equal unlabored respirations, skin warm/dry/pink. 21:42 General: attempted to call report . aa9 Vital Signs: 16:50 BP 162 / 76; Pulse 110; Resp 34; Temp 101.9; Pulse Ox 96% on 4 lpm NC; Weight 77.56 kg; jb4 Height 5 ft. 8 in. (172.72 cm); Pain 0/10; 18:20 BP 156 / 79; Pulse 108; Resp 33; Pulse Ox 93% on 2 lpm NC; jb4 19:04 Temp 98.2(O); jb4 19:30 BP 135 / 66; Pulse 105; Resp 26 S; Pulse Ox 91% on 3 lpm NC; aa9 21:35 BP 153 / 82; Pulse 96; Resp 26 S; Pulse Ox 93% on 3 lpm NC; aa9 16:50 Body Mass Index 26.00 (77.56 kg, 172.72 cm) jb4 ED Course: 16:50 Patient arrived in ED. jb4 16:53 Marino Simeon PA is PHCP. cp 16:53 Kyree Rg MD is Attending Physician. cp 16:59 Triage completed. jb4 16:59 Arm band placed on right wrist. jb4 17:00 Houston Lozano, RN is Primary Nurse. jb4 17:00 Patient has correct armband on for positive identification. Bed in low position. Call jb4 light in reach. Side rails up X 1. Client placed on continuous cardiac and pulse oximetry monitoring. NIBP monitoring applied. transit vehicle inspector on. 17:10 Initial lab(s) drawn, by me, sent to lab. Inserted saline lock: 18 gauge in right hand, jb4 using aseptic technique. Blood collected. 17:35 XRAY Chest (1 view) In Process Unspecified. EDMS 18:55 Barnes cath inserted, using sterile technique, 16 Fr., by or, balloon inflated, to jb4 gravity drainage, urine specimen collected. 19:03 No provider procedures requiring assistance completed. jb4 19:28 Bulmaro Doan is Hospitalizing Provider. cp 19:56 Inserted saline lock: 20 gauge in right forearm, using aseptic technique. kl 20:11 CT Chest For PE Angio In Process Unspecified. EDMS 22:02 Patient admitted, IV remains in place. aa9 Administered Medications: 17:45 Drug: Aspirin Chewable Tablet 324 mg Route: PO; jb4 21:59 Follow up: Response: No adverse reaction aa9 17:45 Drug: Tylenol 1000 mg Route: PO; jb4 22:00 Follow up: Response: No adverse reaction; Temperature is decreased aa9 17:45 Drug: Rocephin - (cefTRIAXone) 1 grams Route: IVPB; Infused Over: 30 mins; Site: right jb4 hand; 18:15 Follow up: Response: No adverse reaction; IV Status: Completed infusion; IV Intake: [id number] 17:52 Drug: Xopenex (levalbuterol) (3) 1.25 mg Route: Inhalation; jb4 17:52 Drug: AtroVENT (ipratropium) Aerosol 0.5 mg Route: Inhalation; jb4 17:52 CANCELLED (Physician Discretion): NS 0.9% (30 ml/kg) 30 ml/kg IV at bolus once; Sepsis cp Protocol 18:15 Drug: Zithromax (azithromycin) 500 mg Route: IVPB; Infused Over: 1 hrs; Site: right jb4 hand; 22:00 Follow up: Response: No adverse reaction; IV Status: Completed infusion; IV Intake: aa9 250ml 18:15 Drug: Decadron - Dexamethasone 6 mg Route: IVP; Site: right hand; jb4 18:47 Follow up: Response: No adverse reaction jb4 18:20 Drug: NS 0.9% 1000 ml Route: IV; Rate: 1 bolus; Site: right hand; jb4 22:00 Follow up: Response: No adverse reaction; IV Status: Completed infusion; IV Intake: aa9 1000ml 21:30 Drug: Magnesium Sulfate 1 grams Route: IVPB; Infused Over: 1 hrs; Site: right aa9 antecubital; 22:00 Follow up: IV Status: Infusion continued upon admission aa9 21:30 Drug: Lovenox (enoxaparin) 1 mg/kg Route: Sub-Q; Site: right lower abdomen; aa9 22:01 Follow up: Response: No adverse reaction aa9 Medication: 18:57 VIS not applicable for this client. jb4 Intake: 18:15 IV: 50ml; Total: 50ml. jb4 22:00 IV: 250ml; Total: 300ml. aa9 22:00 IV: 1000ml; Total: 1300ml. aa9 Outcome: 19:31 Decision to Hospitalize by Provider. cp 22:01 Admitted to Tele accompanied by nurse, accompanied by tech, via stretcher, room 424, aa9 with oxygen, with chart, Report called to Steph RN 22:01 Condition: stable 22:01 Instructed on the need for admit. 22:05 Patient left the ED. as6 Signatures: Dispatcher [employer] EDMeagan Ramos RN Marino Rose PA PA cp Bryson, James, RN RN jb4 Cleveland Bowman RN RN as6 Hawa Horta RN RN aa9
--- NOTE | 2022-05-06 20:21 | RAD REPORT ---
EXAM DESCRIPTION: CT - Chest For Pe Angio - 05/06/2022 8:09 pm CLINICAL HISTORY: Chest pain. shortness of breath COMPARISON: <Comparisons> TECHNIQUE: CT angiogram of the pulmonary arteries was performed with MIP. All CT scans are performed using dose optimization technique as appropriate and may include automated exposure control or mA/KV adjustment according to patient size. FINDINGS: No evidence of pulmonary thromboembolism. No acute aortic finding demonstrated. Mild COPD is evident with subsegmental atelectasis in both posterior lung bases. No significant pericardial or pleural fluid. No concerning bony finding. IMPRESSION: No evidence of pulmonary thromboembolism. Mild COPD with subsegmental atelectasis in both posterior lung bases.
--- NOTE | 2022-05-06 20:31 | P.HP ---
Certification for Inpatient Patient admitted to: Inpatient With expected LOS: >2 Midnights Patient will require the following post-hospital care: None Practitioner: I am a practitioner with admitting privileges, knowledge of patient current condition, hospital course, and medical plan of care. Services: Services provided to patient in accordance with Admission requirements found in Title 42 Section 412.3 of the Code of Federal Regulations Patient History Date of Service: 05/06/22 Primary Care Provider: Magdy Reason for admission: COVID, acute resp failure History of Present Illness: Patient is a 66 y/o M with PMH of COPD, HTN, CHF (unknown EF), CKD3, CVA with left sided deficits who presented to the ED via EMS after fpc reports that patient was diagnosed with COVID last night and now saturating 77% on RA. Patient is complaininf of fever, cough, SHOB, and malaise. On initial presentation, he was febrile, tachycardic, tachypneic, and saturating 93% on 2L. EKG showed aflutter (patient denies history). CT chest showed mild COPD with subsegmental atelectasis in both posterior lung bases. Labs significant for Cr 1.46, magnesium 1.5, BNP 1200, troponin HS 81, CRP 34, procal 0.07, lactic acid and WBC WNL. He was given tylenol, aspirin 324, lovenox, breathing treatment, decadron, azithromycin, rocephin, supplemental mag, and fluids in the ED. Upon my assessment, patient's fever has resolved and he is saturating appropriately on 2L (was initially put on 4L). He reports congestion and SHOB. Patient is admi tted for further evaluation and treatment. Home medications list reviewed: Yes - Past Medical/Surgical History Diabetic: No -: Hypertension -: CVA with L sided deficits -: COPD -: CKD3 -: CHF (unknown EF) Psychosocial/ Personal History: Patient is . He lives at [facility]. - Family History Father -: Cancer Mother -: Cancer - Social History Smoking Status: Current every day smoker Alcohol use: Yes CD- Drugs: No Caffeine use: Yes Place of Residence: [facility]illed Nursing Review of Systems General: Fever, Weakness, Malaise Respiratory: Cough, Shortness of Breath Physical Examination - Physical Exam General: Alert, In no apparent distress HEENT: Atraumatic, PERRLA, EOMI, Sclerae nonicteric Neck: Supple, 2+ carotid pulse no bruit, No LAD, Without JVD or thyroid abnormality Respiratory: Diminished, Expiratory wheezes Cardiovascular: No edema, Irregular heart rate/rhythm Gastrointestinal: Normal bowel sounds, No tenderness Musculoskeletal: No tenderness Integumentary: No rashes Neurological: Normal speech, Normal affect - Studies Laboratory Data (last 24 hrs) 05/06/22 17:10: PT 11.4, INR 1.04 05/06/22 17:10: WBC 5.8, Hgb 13.6, Hct 42.5, Plt Count 244 05/06/22 17:10: Sodium 136, Potassium 3.6, BUN 17, Creatinine 1.46 H, Glucose 78, Magnesium 1.5 L, Total Bilirubin 0.3, AST 62 H, ALT 31, Alkaline Phosphatase 41 L Microbiology Data (last 24 hrs): 05/06/22 17:10 Nasopharnyx Influenza Type A Antigen Screen - Final 05/06/22 17:10 Nasopharnyx Influenza Type B Antigen Screen - Final Assessment and Plan - Problems (Diagnosis) (1) Acute respiratory failure with hypoxemia Current Visit: Yes Status: Acute (2) Sepsis due to COVID-19 Current Visit: Yes Status: Acute (3) TIMMY (acute kidney injury) Current Visit: Yes Status: Acute (4) Elevated troponin Current Visit: Yes Status: Acute (5) New onset atrial flutter Current Visit: Yes Status: Acute (6) Hypomagnesemia Current Visit: Yes Status: Acute (7) CHF (congestive heart failure) Current Visit: Yes Status: Acute Qualifiers: Heart failure type: unspecified Heart failure chronicity: acute on chronic Qualified Code(s): I50.9 - Heart failure, unspecified (8) COPD (chronic obstructive pulmonary disease) Current Visit: Yes Status: Chronic Qualifiers: Emphysema type: unspecified (9) Hypertension Current Visit: Yes Status: Chronic Qualifiers: Hypertension type: primary hypertension Qualified Code(s): I10 - Essential (primary) hypertension (10) Chronic kidney disease Current Visit: Yes Status: Acute Qualifiers: Chronic kidney disease stage: stage 3 (moderate) Chronic kidney disease stage 3 subtype: stage 3a (GFR 45-59) Qualified Code(s): N18.31 - Chronic kidney disease, stage 3a - Plan Acute respiratory failure with hypoxemia/Sepsis due to COVID-19: Continue scheduled nebs, incentive spirometry, supplemental O2, vitamin C/zinc, and IV decadron. Antitussives and decongestants PRN. Pulmonology consulted. Received rocephin & azithromycin in ED. Will hold off on further antibiotics at this time. Follow blood cultures. Elevated troponin: Repeat troponin ordered as well as CPK and CKMB. 324 mg aspirin and therapeutic lovenox given in ED New onset afib/flutter: Cardiology consult. Patient is not on blood thinners. Lovenox ordered daily. Echo ordered. Monitor on telemetry. CHF: unknown EF. BNP elevated. No pulmonary/peripheral edema noted. Echo ordered TIMMY on CKD3a: TIMMY likely secondary to sepsis. Continue to monitor renal function and hold nephrotoxic agents. Hypomagensmia: Replete per protocol. Supplementation given in ED HTN/HLD/COPD: Reconcile and continue home medications Lovenox for VTE ppx Full code Discharge Plan: Skilled Nursing Plan to discharge in: Greater than 2 days - Advance Directives Does patient have a Living Will: No Does patient have a Durable POA for Healthcare: No - Code Status/Comfort Care Code Status Assessed: Yes (Full) Critical Care: No Time Spent Managing Pts Care (In Minutes): 70
[2022-05-06] MEDS ORDERED: MAGNESIUM SULFATE 1 gm IVPB 1 GM/100 ML BAG IV ONE (21:26)
[2022-05-06] MEDS ORDERED: ENOXAPARIN 80 MG/0.8 ML SQ ONE (21:26)
[2022-05-07] MEDS ORDERED: BENZONATATE 100 MG CAP PO PRN (00:24)
[2022-05-07] MEDS ORDERED: PSEUDOEPHEDRINE 30 MG TAB PO PRN (00:24)
[2022-05-07] MEDS ORDERED: ONDANSETRON 4 MG/2 ML VIAL IV PRN (00:24)
[2022-05-07] MEDS ORDERED: DIPHENHYDRAMINE 25 MG TAB/CAP PO PRN (00:24)
[2022-05-07] MEDS ORDERED: ACETAMINOPHEN 325 MG TABLET PO PRN (00:24)
[2022-05-07 01:13] LABS: CKMB Creatine Kinase MB 1.5 ng/mL (1.0-3.6)
[2022-05-07 01:25] LABS: Troponin High Sensitivity 72.1 pg/mL (<58.9)
[2022-05-07] MEDS: ALBUTEROL 2.5 MG/3 ML NEB SOL NEB SCH ×4 (02:00→20:20)
[2022-05-07] MEDS: IPRATROPIUM BROM 0.5MG/2.5ML NEB SCH ×4 (02:00→20:20)
[2022-05-07 04:23] VITALS: BMI 25.9
[2022-05-07 06:39] LABS: Absolute Lymphocytes (CBC) 0.6 K/uL (0.7-4.9); Hematocrit 39.9 % (39.6-49.0); MCV 83.2 fL (80-100); MPV 7.8 fL (7.6-11.3)
[2022-05-07 07:02] LABS: Magnesium 1.8 mg/dL (1.8-2.4); Potassium 3.7 mmol/L (3.5-5.1); Thyroid Stimulating Hormone 0.331 uIU/mL (0.360-3.740)
[2022-05-07] MEDS ORDERED: dexAMETHasone 10 MG/ML VIAL IV SCH (09:00)
[2022-05-07] MEDS ORDERED: ENOXAPARIN 40 MG/0.4 ML SQ SCH (09:00)
[2022-05-07] MEDS ORDERED: TAMSULOSIN 0.4 MG SR CAP PO SCH (09:00)
[2022-05-07] MEDS ORDERED: ZINC SULFATE 220 MG CAP PO SCH (09:00)
[2022-05-07] MEDS ORDERED: ASCORBIC ACID 500 MG TABLET PO SCH (09:00)
--- NOTE | 2022-05-07 12:54 | EKG ---
Test Date: 2022-05-06 Test Time: 17:19:54 [employer]: [employer] MEASUREMENT RESULTS: Intervals: Rate: 96 ME: QRSD: 72 QT: 360 QTc: 454 [place]: P: 75 ME: QRS: 70 T: 76 INTERPRETIVE STATEMENTS: Atrial flutter with variable AV block with premature ventricular or aberrantly conducted complexes Abnormal ECG Compared to ECG 09/16/2021 13:52:33 Ventricular premature complex(es) now present Sinus rhythm no longer present ST (T wave) deviation no longer present Electronically Signed On 05-07-22 12:53:12 CDT by Gelacio Acevedo
--- NOTE | 2022-05-07 15:31 | P.DS ---
Admission Date: 05/06/22 Discharge Date: 05/07/22 Primary Care Provider: Magdy Disposition: TRANSFER TO RESIDENTIAL Discharge Condition: FAIR Reason for Admission: COVID, acute resp failure - Problems (1) COVID-19 Current Visit: Yes Status: Acute (2) Acute respiratory failure with hypoxemia Current Visit: Yes Status: Acute (3) Chronic kidney disease Current Visit: Yes Status: Acute Qualifiers: Chronic kidney disease stage: stage 3 (moderate) Chronic kidney disease stage 3 subtype: stage 3a (GFR 45-59) Qualified Code(s): N18.31 - Chronic kidney disease, stage 3a (4) COPD (chronic obstructive pulmonary disease) Current Visit: Yes Status: Chronic Qualifiers: Emphysema type: unspecified (5) Sepsis due to COVID-19 Current Visit: Yes Status: Acute Brief History of Present Illness: Patient is a 66 y/o M with PMH of COPD, HTN, CHF (unknown EF), CKD3, CVA with left sided deficits who presented to the ED via EMS after retirement reports that patient was diagnosed with COVID last night and saturating 77% on RA. Patient was complaining of fever, cough, SOB, and malaise. On initial presentation, he was febrile, tachycardic, tachypneic, and saturating 93% on 2L. EKG showed sinus rhythm. CT chest showed mild COPD with subsegmental atelectasis in both posterior lung bases. Labs significant for Cr 1.46, magnesium 1.5, BNP 1200, troponin HS 81, CRP 34, procal 0.07, lactic acid and WBC WNL. He was given tylenol, aspirin 324, lovenox, breathing treatment, decadron, azithromycin, rocephin, supplemental mag, and fluids in the ED. Patient's fever resolved in the ED. He was saturating appropriately on 2L (was initially put on 4L). He reported congestion and SOB. Patient was admitted for further evaluation and treatment. Hospital Course: Patient was admitted to the medical floor and started on IV steriod, bronchodilators, zinc and multivitamins. Patient was stable on his baseline oxygen by nasal canula. He was also asymptomatic. He was seen by pulmonary Dr. Jarrett and patient deemed stable for discharge. Patient is discharged steroid therapy in addition to bronchodilators and vitamins. Vital Signs/Physical Exam: Temp Pulse Resp BP Pulse Ox 98.6 F 77 18 158/76 H 90 L 05/07/22 11:47 05/07/22 11:47 05/07/22 11:47 05/07/22 11:47 05/07/22 11:47 General: Alert, In no apparent distress HEENT: Mucous membr. moist/pink Neck: Supple, JVD not distended Respiratory: Clear to auscultation bilaterally, Normal air movement Cardiovascular: No edema, Regular rate/rhythm, Normal S1 S2, No murmurs Gastrointestinal: Normal bowel sounds, Soft and benign, Non-distended, No tenderness Musculoskeletal: No swelling Integumentary: No rashes, No erythema Lymphatics: No axilla or inguinal lymphadenopathy Laboratory Data at Discharge: WBC 4.4 K/uL (4.3-10.9) D 05/07/22 06:10 Hgb 13.1 g/dL (13.6-17.9) L 05/07/22 06:10 Hct 39.9 % (39.6-49.0) 05/07/22 06:10 Plt Count 230 K/uL (152-406) 05/07/22 06:10 PT 11.4 SECONDS (9.5-12.5) 05/06/22 17:10 INR 1.04 05/06/22 17:10 Sodium 140 mmol/L (136-145) 05/07/22 06:10 Potassium 3.7 mmol/L (3.5-5.1) 05/07/22 06:10 BUN 17 mg/dL (7-18) 05/07/22 06:10 Creatinine 1.32 mg/dL (0.55-1.3) H 05/07/22 06:10 Glucose 128 mg/dL (74-106) H 05/07/22 06:10 Magnesium 1.8 mg/dL (1.8-2.4) 05/07/22 06:10 Total Bilirubin 0.3 mg/dL (0.2-1.0) 05/06/22 17:10 AST 62 U/L (15-37) H 05/06/22 17:10 ALT 31 U/L (12-78) 05/06/22 17:10 Alkaline Phosphatase 41 U/L (45-117) L 05/06/22 17:10 Triglycerides 142 mg/dL (<150) 05/07/22 06:10 Cholesterol 99 mg/dL (<200) 05/07/22 06:10 HDL Cholesterol 29 mg/dL (40-60) L 05/07/22 06:10 Cholesterol/HDL Ratio 3.41 05/07/22 06:10 Home Medications: ARIPiprazole [Abilify*] 10 mg PO DAILY 05/07/22 Acetaminophen [Tylenol] 650 mg PO Q6HP PRN 05/07/22 Ascorbate Calcium [Vitamin C] 1,000 mg PO DAILY 05/07/22 Aspirin 81 mg PO DAILY 05/07/22 Benzonatate [Tessalon Perle*] 100 mg PO TID PRN #30 cap 05/07/22 Cholecalciferol (Vitamin D3) [Vitamin D 1000 Iu Tab*] 2,000 unit PO DAILY 05/07/22 Cyclobenzaprine HCl [Flexeril] 1 tab PO BEDTIME 05/07/22 Diphenhydramine [Benadryl*] 1 tab PO BEDTIME PRN PRN 05/07/22 Duloxetine HCl [Cymbalta] 60 mg PO BID 05/07/22 Famotidine [Pepcid] 20 mg PO BID 05/07/22 Fenofibrate [Tricor*] 145 mg PO BEDTIME 05/07/22 Ferrous Sulfate [Ferrous Sulfate*] 1 tab PO DAILY 05/07/22 Finasteride [Proscar*] 5 mg PO DAILY 05/07/22 Gabapentin [Neurontin*] 400 mg PO TID 05/07/22 Guaifenesin 400 mg PO TID 05/07/22 Hydralazine HCl [Apresoline] 50 mg PO TID 05/07/22 Ipratropium/Albuterol Sulfate [Iprat-Albut 0.5-3(2.5) mg/3 ml] 1 dose IH Q6HP PRN 05/07/22 Melatonin 10 mg PO BEDTIME 05/07/22 Nifedipine [Nifedipine ER] 90 mg PO DAILY 05/07/22 Omeprazole [Prilosec] 1 tab PO DAILY 05/07/22 Tamsulosin [Flomax*] 1 tab PO DAILY 05/07/22 Zinc Sulfate [Zinc Sulfate*] 1 tab PO DAILY 05/07/22 predniSONE [Deltasone] 20 mg PO DAILY #7 tab 05/07/22 New Medications: predniSONE [Deltasone] 20 mg PO DAILY #7 tab Benzonatate [Tessalon Perle*] 100 mg PO TID PRN #30 cap PRN Reason: Cough Diet: AHA Activity: Fall precautions Followup: NONE,NONE [Primary Care Provider] - 1 Week
[2022-05-07 16:23] VITALS: BP 134/69; TEMP 97.8
[2022-05-07] MEDS ORDERED: FAMOTIDINE 20 MG TAB PO SCH (21:00)
[2022-05-07] MEDS ORDERED: HYDRALAZINE HCL 25 MG TABLET PO SCH (21:00)
[2022-05-07] MEDS ORDERED: MELATONIN 5 MG TABLET PO SCH (21:00)
[2022-05-07] MEDS ORDERED: DULOXETINE 30 MG CAP PO SCH (21:00)
[2022-05-07] MEDS ORDERED: GABAPENTIN 400 MG CAP PO SCH (21:00)
[2022-05-07] MEDS ORDERED: CYCLOBENZAPRINE 10 MG TAB PO SCH (21:00)
[2022-05-07 22:02] VITALS: O2SAT 98
--- NOTE | 2022-05-08 06:48 | ECHO ---
HEIGHT: 5 ft 8 in WEIGHT: 171 lb 0 oz DATE OF STUDY: 05/07/[address]: Coleen Urbina 2-DIMENSIONAL: YES M.MODE: YES DOPPLER: YES COLOR FLOW: YES TDS: PORTABLE: YES DEFINITY: BUBBLE STUDY: DIAGNOSIS: ATRIAL FIBRILLATION/ FLUTTER CARDIAC HISTORY: CATHERIZATION: SURGERY: PROSTHETIC VALVE: PACEMAKER: MEASUREMENTS (cm) DIASTOLIC (NORMALS) SYSTOLIC (NORMALS) IVSd 0.9 (0.6-1.2) LA Diam (1.9-4.0) LVEF 58% LVIDd 5.0 (3.5-5.7) LVIDs 3.5 (2.0-3.5) %FS 31% LVPWd 1.2 (0.6-1.2) Ao Diam 3.1 (2.0-3.7) 2 DIMENSIONAL ASSESSMENT: RIGHT ATRIUM: NORMAL LEFT ATRIUM: NORMAL RIGHT VENTRICLE: NORMAL LEFT VENTRICLE: NORMAL TRICUSPID VALVE: NORMAL MITRAL VALVE: NORMAL PULMONIC VALVE: NORMAL AORTIC VALVE: NORMAL PERICARDIAL EFFUSION: NONE AORTIC ROOT: NORMAL LEFT VENTRICULAR WALL MOTION: NORMAL DOPPLER/COLOR FLOW: MILD TRICUSPID REGURGITATION. COMMENTS: ATRIAL FIBRILLATION NOTED. MILD TRICUSPID REGURGITATION. NORMAL RIGHT VENTRICULAR SYSTOLIC PRESSURE. NORMAL LEFT VENTRICULAR SIZE AND FUNCTION. TECHNOLOGIST: BRIANA MURO
[2022-05-08] MEDS ORDERED: PANTOPRAZOLE 40MG TABLET PO SCH (07:30)
[2022-05-08] MEDS ORDERED: ARIPiprazole 5 MG TAB PO SCH (09:00)
[2022-05-08] MEDS ORDERED: NIFEDIPINE XL 90 MG TABLET PO SCH (09:00)
[2022-05-08] MEDS ORDERED: FINASTERIDE 5 MG TAB PO SCH (09:00)
--- NOTE | 2022-05-08 11:56 | CON ---
Date of Consultation: 05/07/2022 Reason For Consultation: Atrial fibrillation and elevated troponin. History Of Present Illness: Mr. Post is a 66-year-old with history of depression, CVA with rhabdomyo lysis, GERD, neuropathy, insomnia as well as hypertension. Came in with elevated troponin, atrial fi brillation, short of breath. CTA was negative. EKG with sinus rhythm by the time I saw him. He has received IV metoprolol. TSH was 0.3. The procalcitonin was 0.07. Troponin was 81. BNP was 1253. His creatinine is 1.32. Chest x-ray showed COPD. He is back in rhythm and asymptomatic now. Past Medical History: As stated above. Allergies: NEGATIVE. Review of Systems: Negative. Social History: Negative. Family History: Noncontributory. Medications: At home include Procardia, Flomax, Tricor, Abilify, Neurontin, inhalers, and hydralazin e. Physical Examination: Vital Signs: He is in sinus rhythm. No acute distress. Vital signs stable, afebrile. HEENT: Negative. Neck: Supple with no bruit. Chest: Clear. Cardiac: Revealed a regular rhythm and rate. No murmurs, gallops, or rubs. Abdomen: Benign. Extremities: Revealed no clubbing, cyanosis, or edema. Diagnostic Data: As stated earlier. He was also COVID positive. Impression And Plan: 1.Paroxysmal atrial fibrillation that has resolved. Echocardiogram is pending. The patient needs t o be on a low-dose beta-kenzie when he goes home. The episode was very transient and I think he oneida uld be on at least an aspirin a day and a beta-kenzie unless the echocardiogram shows some significa nt abnormalities. He can otherwise go home whenever it is okay with Dr. Doan. We will be happy to see him as an outpatient in the near future. 2.COVID positive. 3.Hypertension, well controlled. 4.Triglyceridemia, well controlled. 5.Depression. 6.History of cerebrovascular accident. 7.History of rhabdomyolysis. 8.History of gastroesophageal reflux disease. 9.Neuropathy. 10.History of insomnia. Again, I will continue his present regimen, obtain an echo, add a low-dose beta-kenzie and aspirin. He needs to have his thyroid evaluated as it is only 0.3. I think his michelle vation of troponin and BNP is secondary to his atrial flutter and chronic obstructive pulmonary disea se exacerbation and COVID. No need for any further cardiac workup at this point. MORENITA/RAMONA Voice ID: [id number] Report ID: [id number]
--- NOTE | 2022-05-08 12:18 | EKG ---
Test Date: 2022-05-07 Test Time: 12:28:09 Dam Operator: AMANDA MEASUREMENT RESULTS: Intervals: Rate: 84 MI: 120 QRSD: 74 QT: 366 QTc: 432 [place]: P: 70 MI: 120 QRS: 58 T: 58 INTERPRETIVE STATEMENTS: Normal sinus rhythm Normal ECG Compared to ECG 05/06/2022 17:19:54 Atrial flutter no longer present Ventricular premature complex(es) no longer present Electronically Signed On 05-08-22 12:17:12 CDT by Leandro Da Silva
== END 2022-05-07 21:30 | DRG 871 ==
LOC: ER 16:45 → ERHOLD 20:16 → 4TH 21:22
PROVIDERS: ADMIT Internal Medicine; ATTEND Internal Medicine
DX: A41.89 Other specified sepsis (principal); U07.1 COVID-19; J96.01 Acute respiratory failure with hypoxia; I69.954 Hemiplegia and hemiparesis following unspecified cerebrovascular disease affecting left non-dominant side; I13.0 Hypertensive heart and chronic kidney disease with heart failure and stage 1 through stage 4 chronic kidney disease, or unspecified chronic kidney disease; N17.9 Acute kidney failure, unspecified; J98.11 Atelectasis; N18.31 Chronic kidney disease, stage 3a; I48.0 Paroxysmal atrial fibrillation; I50.9 Heart failure, unspecified; E83.42 Hypomagnesemia; R77.8 Other specified abnormalities of plasma proteins; E78.5 Hyperlipidemia, unspecified; J44.9 Chronic obstructive pulmonary disease, unspecified; G62.9 Polyneuropathy, unspecified; G47.00 Insomnia, unspecified
CPT/HCPCS: 36415; 51702; 71045; 71275; 80048; 80061; 80076; 81003; 81015; 82550; 82553; 82728; 83605; 83735; 83880; 84145; 84443; 84484; 85025; 85610; 86140; 87040; 87804; 93005; 93306; 94010; 94640; 94760; 96372; 99285; J0456; J1100; J1650; J3475; J7030; J7050; Q9967; U0003

== ENCOUNTER 2022-06-17 14:55 | Emergency (ER) | payer OTHER ==
--- OUTSIDE RECORDS SUMMARY | 2022-06-17 14:58 | XMS REPORT | Continuity of Care Document ---
:[address] [facility] t Address [address] [place] [address] Care Team Providers Name Role Phone CYN [...] Department ID 2020-06-15 2020-06-22 Inpatient E RUBY [facility] MED [id number] [facility] 20:20:00 15:10:00 , ROSEMIN 2019-04-20 2019-04-20 Appointmen ANA CONNOR Multispecia [id number] [place] 15:45:00 15:45:00 t; HAYES CONNOR lty - Daryl Jones M.D. 2019-04-06 2019-04-06 Appointmen ANA CONNOR [facility] [id number] [place] 16:00:00 16:00:00 t; HAYES CONNOR Orthopedic P hysijulián KOO M.D. Surgery - fifi [address] 1 2018-07-16 2018-07-16 AppointANA Britt [facility] [id number] [place] 15:15:00 15:15:00 t; HAYES CONNOR Phys ici FAYYAZ, M.D. ans M.D. 2017-10-23 2017-10-23 Appointmen ANA CONNOR [facility] [id number] [place] 09:00:00 09:00:00 t; HAYES CONNOR Phys ici FAYYAZ, M.D. ans M.D. 2017-09-16 2017-09-16 Appointmen ANA CONNOR [facility] [id number] [place] 09:30:00 09:30:00 t; HAYES CONNOR Phys ici FAYYAZ, M.D. ans M.D. 2017-06-05 2017-06-05 Appointmen ANA CONNOR [facility] [id number] [place] 08:30:00 08:30:00 t; HAYES CONNOR Phys ici FAYYAZ, M.D. ans M.D. Results This patient has no known results.
[2022-06-17] MEDS ORDERED: DIAZEPAM 10 MG/2 ML INJ SYRINGE ONE (16:31)
[2022-06-17 16:34] LABS: Absolute Lymphocytes (CBC) 1.5 K/uL (0.7-4.9); Hematocrit 42.6 % (39.6-49.0); MCV 84.6 fL (80-100); MPV 7.9 fL (7.6-11.3); RBC Red Blood Cell Count 5.03 M/uL (4.33-5.43)
--- NOTE | 2022-06-17 20:55 | RAD REPORT ---
EXAM DESCRIPTION: CT - Head C Spine Cap Wo Con - 06/17/2022 8:35 pm CLINICAL HISTORY: Trauma, head and neck injury. Chest, abdomen and pelvis pain. fall COMPARISON: No comparisonsNo comparisons TECHNIQUE: CT head without contrast. CT cervical spine without contrast with coronal and sagittal reformatted images. CT chest, abdomen and pelvis without contrast with coronal and sagittal reformatted images of the spi ne. All CT scans are performed using dose optimization technique as appropriate and may include automated exposure control or mA/KV adjustment according to patient size. FINDINGS: CT HEAD WITHOUT CONTRAST: No intracranial hemorrhage, hydrocephalus or extra-axial fluid collection. Large area of right fronta l encephalomalacia most compatible with old infarct. No areas of brain edema or midline shift. The paranasal sinuses and mastoids are clear. The calvarium is intact. CT CERVICAL SPINE WITHOUT CONTRAST: No fracture or subluxation. Mild to moderate lower cervical degenerative change with large posterior osteophyte at C5-6. The prevertebral soft tissues are normal in thickness. CT CHEST, ABDOMEN, PELVIS WITHOUT CONTRAST: NOTE: Lack of contrast is a significant limitation in the assessment of trauma related findings. Spec ifically, solid organ, vascular and bowel evaluation is significantly limited. The lungs are clear.No pneumothorax or pericardial/pleural fluid. No evidence of intra-abdominal visceral injury, free fluid or free air is seen within the above detai led limitations. Moderate stool retained throughout the colon. No fractures. Right hip arthroplasty. IMPRESSION: Negative for acute traumatic findings within the above detailed limitations.
[2022-06-17 20:57] LABS: Bilirubin Direct 0.2 mg/dL (0-0.2); Bilirubin Total 0.4 mg/dL (0.2-1.0); Protein, Total 6.9 g/dL (6.4-8.2)
--- NOTE | 2022-06-17 21:08 | ER ---
Nurse's Notes [facility] Name: Yovanny Post Age: 66 yrs Sex: Male : 1955 Arrival Date: 06/17/2022 Time: 15:01 Bed 2 Private MD: Diagnosis: Fall on same level from slipping, tripping and stumbling without subsequent striking against object;Headache Presentation: 06/17 15:02 Chief complaint: EMS states: Pt from [facility], fell 3 days ago while attempting to get ph up from wheelchair to use toilet, hx of CVA w/ L sided deficits, states that his L foot became tangled up on foot rest causing him to fall. [facility] taken at [facility] w/no fractures found, pt c/o bilateral leg vasquez and headache, A\T\O x 4, room air Spo2 89%, pt hx of COPD, improved to 95% on 2L NC. Coronavirus screen: Vaccine status: Patient reports receiving the 2nd dose of the covid vaccine. Ebola Screen: No symptoms or risks identified at this time. Initial Sepsis Screen: Does the patient meet any 2 criteria? Does the patient have a suspected source of infection? No. Patient's initial sepsis screen is negative. Risk Assessment: Do you want to hurt yourself or someone else? Patient reports no desire to harm self or others. Onset of symptoms was June 17, 2022. 15:02 Method Of Arrival: EMS: [facility] 15:02 Acuity: SONNY 3 ph Triage Assessment: 15:08 General: Appears in no apparent distress. Behavior is calm, cooperative. Pain: bp Complains of pain in right leg and left leg. EENT: No deficits noted. Neuro: Level of Consciousness is obeys commands. Cardiovascular: No deficits noted. Respiratory: No deficits noted. GI: No signs and/or symptoms were reported involving the gastrointestinal system. : No signs and/or symptoms were reported regarding the genitourinary system. Derm: No deficits noted. Musculoskeletal: No deficits noted. Historical: - Allergies: 15:08 No Known Allergies; bp - PMHx: 15:08 Depression; GERD; insomnia; neuropathy; osteoarthritis; prostate problems; bp rhabdomyolysis; stroke; UTI; - Immunization history:: Adult Immunizations up to date. - Social history:: Smoking status: unknown. Screenin:09 Abuse screen: Denies threats or abuse. Denies injuries from another. Nutritional bp screening: No deficits noted. Tuberculosis screening: No symptoms or risk factors identified. Fall Risk None identified. Assessment: 15:09 General: SEE TRIAGE NOTE. bp 15:53 Reassessment: Patient appears in no apparent distress at this time. Patient and/or ph family updated on plan of care and expected duration. Pain level reassessed. Patient is alert, oriented x 3, equal unlabored respirations, skin warm/dry/pink. ERP at bedside to assess pt, pt reports that he is unable to move R arm after fall, pt placed in c-collar as precaution. 19:30 Reassessment: Patient appears in no apparent distress at this time. Patient and/or jb4 family updated on plan of care and expected duration. Pain level reassessed. Patient is alert, oriented x 3, equal unlabored respirations, skin warm/dry/pink. 20:27 Reassessment: Pt to CT'. jb4 21:20 Reassessment: Patient appears in no apparent distress at this time. Patient and/or jb4 family updated on plan of care and expected duration. Pain level reassessed. Patient is alert, oriented x 3, equal unlabored respirations, skin warm/dry/pink. 22:17 Reassessment: Patient appears in no apparent distress at this time. Patient and/or jb4 family updated on plan of care and expected duration. Pain level reassessed. Patient is alert, oriented x 3, equal unlabored respirations, skin warm/dry/pink. 22:18 Reassessment: Attempted to give report to receiving facility, receiving facility would [facility] not take report. Lab and radiology results printed and given to EMS to given to [facility] staff. Vital Signs: 15:02 BP 126 / 79; Pulse 84; Resp 18; Temp 98.0; Pulse Ox 95% on 2 lpm NC; Weight 75.3 kg; ph Height 5 ft. 8 in. (172.72 cm); 18:43 BP 115 / 78; Pulse 78; Resp 18; Pulse Ox 92% on 2 lpm NC; ph 21:00 BP 133 / 71; Pulse 82; Resp 16; Pulse Ox 92% on 2 lpm NC; jb4 22:00 BP 119 / 50; Pulse 78; Resp 18; Pulse Ox 93% on 2 lpm NC; jb4 15:02 Body Mass Index 25.24 (75.30 kg, 172.72 cm) ph ED Course: 15:01 Patient arrived in ED. ph 15:07 Triage completed. ph 15:07 Arm band placed on Patient placed in an exam room. ph 15:08 Arm band placed on. bp 15:09 Panfilo Cabrera, RN is Primary Nurse. bp 15:09 Patient has correct armband on for positive identification. Bed in low position. Call bp light in reach. Side rails up X2. 15:40 Marino Simeon PA is PHCP. cp 15:40 Marino Hernandez MD is Attending Physician. cp 16:20 Inserted saline lock: 22 gauge in right forearm, using aseptic technique. Blood bp collected. 20:37 Head C Spine Cap Wo Con In Process Unspecified. EDMS 22:18 No provider procedures requiring assistance completed. IV discontinued, intact, jb4 bleeding controlled, No redness/swelling at site. Pressure dressing applied. Administered Medications: 16:26 Drug: Valium (diazepam) 2 mg Route: IVP; Site: right forearm; bp 21:49 Not Given (Patient Refused): Valium (diazepam) 2 mg IVP once jb4 Medication: 15:09 VIS not applicable for this client. bp Outcome: 21:07 Discharge ordered by MD. cp 22:18 Discharged to home via ambulance. jb4 22:18 Condition: stable 22:18 Discharge instructions given to patient, Instructed on discharge instructions, follow up and referral plans. Demonstrated understanding of instructions, follow-up care. 22:20 Patient left the ED. jb4 Signatures: Dispatcher [employer] EDCO Ciara Palma RN RN Marino Simeon PA PA Houston Griffin, RN RN jb4 Panfilo Cabrera, RN RN bp Corrections: (The following items were deleted from the chart) 21:51 21:00 BP 113 / 71; Pulse 82bpm; Resp 16bpm; Pulse Ox 92% 2 lpm Nasal Cannula; jb4 jb4 22:20 22:18 Reassessment: Attempted to give report to receiving facility, receiving facility jb4 would not take report. Lab and radiology results printed and given to EMS to given to [facility] staff. jb4
--- NOTE | 2022-06-17 21:08 | EDPHYS ---
Physician Documentation [facility] Name: Yovanny Post Age: 66 yrs Sex: Male : 1955 Arrival Date: 06/17/2022 Time: 15:01 Bed 2 Private MD: ED Physician Marino Hernandez HPI: 06/17 16:05 This 66 yrs old Male presents to ER via EMS with complaints of Fall. cp 16:05 Details of fall: The patient fell from an upright position, while standing. Onset: The cp symptoms/episode began/occurred 3 day(s) ago. Associated injuries: The patient sustained injury to the head, pain, upper back injury, pain. Patient reports he was getting out of wheelchair when foot became entangled in foot rest of wheelchair, causing him to fall and strike head against door. No LOC reported. Fall occurred 3 days ago. Historical: - Allergies: 15:08 No Known Allergies; bp - PMHx: 15:08 Depression; GERD; insomnia; neuropathy; osteoarthritis; prostate problems; bp rhabdomyolysis; stroke; UTI; - Immunization history:: Adult Immunizations up to date. - Social history:: Smoking status: unknown. ROS: 16:10 Constitutional: Negative for body aches, chills, fever, poor PO intake. cp 16:10 Eyes: Negative for injury, pain, redness, and discharge. cp 16:10 ENT: Negative for drainage from ear(s), ear pain, sore throat, difficulty swallowing, difficulty handling secretions. 16:10 Cardiovascular: Negative for chest pain, palpitations. 16:10 Respiratory: Negative for cough, shortness of breath, wheezing. 16:10 Abdomen/GI: Negative for abdominal pain, nausea, vomiting, and diarrhea. 16:10 Back: Positive for pain at rest. 16:10 Neuro: Positive for headache, weakness, Negative for altered mental status, loss of consciousness, speech changes, syncope. 16:10 All other systems are negative. Exam: 16:15 Constitutional: The patient appears in no acute distress, alert, awake, cp non-diaphoretic, non-toxic, well developed, well nourished. 16:15 Head/Face: Normocephalic, atraumatic. cp 16:15 Eyes: Periorbital structures: appear normal, Pupils: equal, round, and reactive to light and accomodation, Extraocular movements: intact throughout, Conjunctiva: normal, no exudate, no injection, Sclera: no appreciated abnormality, Lids and lashes: appear normal, bilaterally. 16:15 ENT: External ear(s): are unremarkable, Nose: is normal, Mouth: Lips: dry, Oral mucosa: moist, Posterior pharynx: Airway: no evidence of obstruction, patent. 16:15 Neck: C-spine: vertebral tenderness, is not appreciated, crepitus, is not appreciated, ROM/movement: pain, is not appreciated, limited range of motion, is not appreciated. 16:15 Chest/axilla: Inspection: normal, Palpation: crepitus, is not appreciated, tenderness, is not appreciated. 16:15 Cardiovascular: Rate: normal, Rhythm: regular. 16:15 Respiratory: the patient does not display signs of respiratory distress, Respirations: normal, no use of accessory muscles, no retractions, labored breathing, is not present, Breath sounds: are clear throughout, no decreased breath sounds, no stridor, no wheezing. 16:15 Abdomen/GI: Inspection: abdomen appears normal, Palpation: abdomen is soft and non-tender, in all quadrants. 16:15 Back: pain, that is mild, of the thoracic area. 16:15 Musculoskeletal/extremity: Exam is negative for deformity, Extremities: the patient is contracted, diffusely, ROM: limited active range of motion, in all extremities. 16:15 Neuro: Orientation: to person, place \T\ time. Mentation: able to follow commands. Vital Signs: 15:02 BP 126 / 79; Pulse 84; Resp 18; Temp 98.0; Pulse Ox 95% on 2 lpm NC; Weight 75.3 kg; ph Height 5 ft. 8 in. (172.72 cm); 18:43 BP 115 / 78; Pulse 78; Resp 18; Pulse Ox 92% on 2 lpm NC; ph 21:00 BP 133 / 71; Pulse 82; Resp 16; Pulse Ox 92% on 2 lpm NC; jb4 22:00 BP 119 / 50; Pulse 78; Resp 18; Pulse Ox 93% on 2 lpm NC; jb4 15:02 Body Mass Index 25.24 (75.30 kg, 172.72 cm) ph MDM: 15:40 Patient medically screened. adeel 16:30 Differential diagnosis: closed head injury, contusion, fracture, multiple trauma. cp 21:07 Data reviewed: vital signs, nurses notes, lab test result(s), radiologic studies, CT cp scan. 21:07 Counseling: I had a detailed discussion with the patient and/or guardian regarding: the cp historical points, exam findings, and any diagnostic results supporting the discharge/admit diagnosis, lab results, radiology results, to return to the emergency department if symptoms worsen or persist or if there are any questions or concerns that arise at home. 06/17 15:59 Order name: Basic Metabolic Panel; Complete Time: 21:05 cp 06/17 15:59 Order name: CBC with Diff; Complete Time: 19:48 cp 06/17 15:59 Order name: Hepatic Function; Complete Time: 21:05 cp 06/17 15:59 Order name: CT Traumagram (Head C Spine CAP W Con) cp 06/17 20:08 Order name: Head C Spine Cap Wo Con; Complete Time: 21:05 EDMS 06/17 15:59 Order name: IV Saline Lock; Complete Time: 16:26 cp 06/17 15:59 Order name: Labs collected and sent; Complete Time: 16:26 cp 06/17 15:59 Order name: NPO; Complete Time: 16:05 cp 06/17 15:59 Order name: O2 Per Protocol; Complete Time: 16:05 cp 06/17 15:59 Order name: O2 Sat Monitoring; Complete Time: 16:05 cp 06/17 17:24 Order name: Labs - recollect needed: Will call phlebotomy; Complete Time: 17:41 ss Administered Medications: 16:26 Drug: Valium (diazepam) 2 mg Route: IVP; Site: right forearm; bp 21:49 Not Given (Patient Refused): Valium (diazepam) 2 mg IVP once jb4 Disposition Summary: 06/17/22 21:07 Discharge Ordered Location: Home cp Problem: new cp Symptoms: have improved cp Condition: Stable cp Diagnosis - Fall on same level from slipping, tripping and stumbling without subsequent cp striking against object - Headache cp Followup: cp - With: Private Physician - When: 1 - 2 days - Reason: Recheck today's complaints Discharge Instructions: - Discharge Summary Sheet cp - Musculoskeletal Pain cp Forms: - Medication Reconciliation Form cp - Thank You Letter cp - Antibiotic Education cp - Prescription Opioid Use cp - SBAR form jb4 Signatures: Dispatcher [employer] EDMS Marino Hernandez MD MD cha Smirch, Shelby, RN RN ss Marino Simeon PA PA cp Peltier, Brian, TRICE RN Houston Nicholson RN jb4 Corrections: (The following items were deleted from the chart) 20:08 16:05 Head C Spine Cap W Con ordered. EDMS EDMS 20:32 20:32 This 66 yrs old Male presents to ER via EMS with complaints of Fall. cp cp
[2022-06-17 23:03] VITALS: TEMP 98
[2022-06-17 23:10] VITALS: BP 119/50; O2SAT 93
== END 2022-06-17 22:20 | disposition home or self-care (01) ==
LOC: ER 14:55
DX: R51.9 Headache, unspecified (principal); W05.0XXA Fall from non-moving wheelchair, initial encounter
CPT/HCPCS: 85025; 80048; 36415; 80076; 70450; 71250; 72125; J3360; 96374; 99284

== ENCOUNTER 2022-06-25 12:21 | Inpatient (IN) | payer OTHER ==
--- OUTSIDE RECORDS SUMMARY | 2022-06-25 12:25 | XMS REPORT | Continuity of Care Document ---
:1955 Author Organization [facility] t Address [address] [place] [address] Care Team Providers Name Role Phone CYN [...] Department ID 2020-06-15 2020-06-22 Inpatient E [facility] MED [id number] [facility] 20:20:00 15:10:00 , ROSEMIN 2019-04-20 2019-04-20 Appointmen ANA CONNOR Multispecia [id number] [place] 15:45:00 15:45:00 t; HAYES CONNOR lty - Daryl Jones M.D. 2019-04-06 2019-04-06 Appointmen ANA CONNOR [facility] [id number] [place] 16:00:00 16:00:00 t; HAYES CONNOR Orthopedic P hysijulián KOO M.D. Surgery - fifi [address] 1 2018-07-16 2018-07-16 AppointANA Britt [facility] [id number] [place] 15:15:00 15:15:00 t; HAYES OCNNOR Phys ici FAYYAZ, M.D. ans M.D. 2017-10-23 2017-10-23 Appointmen ANA CONNOR [facility] [id number] [place] 09:00:00 09:00:00 t; HAYES CONNOR Phys ici FAYYAZ, M.D. ans M.D. 2017-09-16 2017-09-16 Appointmen ANA CONNOR [facility] [id number] [place] 09:30:00 09:30:00 t; HAYES CONNOR Phys ici FAYYAZ, M.D. ans M.D. 2017-06-05 2017-06-05 Appointmen ANA CONNOR [facility] [id number] [place] 08:30:00 08:30:00 t; HAYES CONNOR Phys ici FAYYAZ, M.D. ans M.D. Results This patient has no known results.
--- NOTE | 2022-06-25 13:11 | RAD REPORT ---
EXAM DESCRIPTION: CT - Head Brain Wo Cont - 06/25/2022 1:00 pm CLINICAL HISTORY: right sided weakness COMPARISON: Head C Spine Cap Wo Con dated 06/17/2022; Chest Single View dated 05/06/2022 TECHNIQUE: Axial 5 mm thick images of the head were obtained without IV contrast. All CT scans are performed using dose optimization technique as appropriate and may include automated exposure control or mA/KV adjustment according to patient size. FINDINGS: No intracranial hemorrhage is present. There is approximately 2.5 x 1.5 centimeter sized a sonu of decreased attenuation in the left cerebral hemisphere near the frontal parietal lobe junction. This was not present on the June 17 study. Acute/ subacute nonhemorrhagic CVA is most likely. No co rtical edema or sulcal effacement. No mass effect, edema or shift of midline structures. The patient has large area of encephalomalacia involving the right frontal lobe much of the right parietal lobe h as not change from June 17. Ventricles are in proportion to volume loss. Arterial tree calcification s are present. Mastoid air cells and visualized portions of the paranasal sinuses are clear. No acute bony findings. IMPRESSION: Acute/ subacute nonhemorrhagic CVA posterior left frontal lobe near the frontoparietal j unction. No mass effect, edema or shift of midline structures. Right cerebral encephalomalacia has not change from June 17 imaging.
[2022-06-25 13:32] LABS: Absolute Lymphocytes (CBC) 1.6 K/uL (0.7-4.9); Hematocrit 41.3 % (39.6-49.0); Lymphocytes % 18.9 % (15.3-44.8); MCV 84.7 fL (80-100); MPV 7.6 fL (7.6-11.3); RBC Red Blood Cell Count 4.87 M/uL (4.33-5.43)
[2022-06-25 13:49] LABS: Potassium 4.1 mmol/L (3.5-5.1)
--- NOTE | 2022-06-25 14:03 | ER ---
Nurse's Notes [facility] Name: Yovanny Post Age: 66 yrs Sex: Male : 1955 Arrival Date: 06/25/2022 Time: 12:28 Bed 20 Private MD: Diagnosis: Ischemic CVA;Right sided weakness Presentation: 06/25 12:28 Chief complaint: Patient states: right side weakness which is unchanged from a fall 2 mb8 weeks ago in which he was evaluated. Coronavirus screen: Vaccine status: Patient reports receiving the 1st dose of the Covid vaccine. Client denies travel out of the [place] in the last 14 days. At this time, the client does not indicate any symptoms associated with coronavirus-19. Ebola Screen: Patient denies travel to an Ebola-affected area in the 21 days before illness onset. No acute neurological deficit is noted. The patients blood glucose was checked before arriving to the hospital and was found to be normal. Initial Sepsis Screen: Does the patient meet any 2 criteria? No. Patient's initial sepsis screen is negative. Does the patient have a suspected source of infection? No. Patient's initial sepsis screen is negative. Risk Assessment: Do you want to hurt yourself or someone else? Patient reports no desire to harm self or others. Onset of symptoms was June 11, 2022. 12:28 Method Of Arrival: EMS mb8 12:28 Acuity: SONNY 3 mb8 Triage Assessment: 12:34 The onset of the patients symptoms was more than six hours ago. The onset of the mb8 patients symptoms was June 11, 2022 at 08:00. General: Appears in no apparent distress. comfortable, Behavior is calm, cooperative, appropriate for age. Pain: Complains of pain in right foot Pain does not radiate. Pain currently is 5 out of 10 on a pain scale. Pain began 2 Weeks ago. 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 Stroke Activation: Symptom onset > 6 hours Physician: Stroke Attending; Name: ; Notified At: ; Arrived At: Physician: Chief Stroke Resident; Name: ; Notified At: ; Arrived At: Physician: Stroke Resident; Name: ; Notified At: ; Arrived At: Physician: ED Attending; Name: ; Notified At: ; Arrived At: Physician: ED Resident; Name: ; Notified At: ; Arrived At: Historical: - Allergies: 12:33 No Known Allergies; mb8 - PMHx: 12:33 Depression; GERD; insomnia; neuropathy; osteoarthritis; prostate problems; mb8 rhabdomyolysis; stroke; UTI; - Immunization history:: Client reports receiving the 1st dose of the Covid vaccine. - Social history:: Smoking status: Patient reports the use of cigarette tobacco products, smokes one-half pack cigarettes per day. Screenin:39 Abuse screen: Denies injuries from another. Nutritional screening: No deficits noted. mb8 Tuberculosis screening: No symptoms or risk factors identified. Fall Risk Fall in past 12 months (25 points). Secondary diagnosis (15 points) No IV (0 pts). Ambulatory Aid- None/Bed Rest/Nurse Assist (0 pts). Gait- Impaired (20 pts.). Mental Status- Oriented to own ability (0 pts). Total Garcia Fall Scale indicates Low Risk Score (25-44 pts). Fall prevention measures have been instituted. Side Rails Up X 2 As available Patient and Family Educated on Fall Prevention Program and strategies. 16:30 Patient has been NPO before screening. The patient is alert, able to follow commands. mb8 The patient does not exhibit slurred or garbled speech The patient is not exhibiting difficulty speaking. The patient does not exhibit difficulty understanding words. The patient is able to swallow own secretions with no drooling or need for suction. Patient tolerated one teaspoon of water. No drooling, immediate coughing, gurgling, or clearing of the throat was noted. The patient tolerated 90mL of water. No drooling, immediate coughing, gurgling, or clearing of the throat was noted. The patient passed the bedside swallow screening. Oral medications may be given as ordered. Contact Physician for further diet orders. Assessment: 13:25 VAN Scoring: Arm Drift: Minor drift Visual Disturbance: No visual disturbance noted. mb8 Aphasia: No aphasia noted. Neglect: No neglect noted. Neuro: Reports weakness in right arm and right leg. 13:44 Reassessment: Patient and/or family updated on plan of care and expected duration. Pain mb8 level reassessed. Patient is alert, oriented x 3, equal unlabored respirations, skin warm/dry/pink. Cardiovascular: Rhythm is sinus rhythm. 14:28 Reassessment: Patient and/or family updated on plan of care and expected duration. Pain mb8 level reassessed. Patient is alert, oriented x 3, equal unlabored respirations, skin warm/dry/pink. 15:30 Reassessment: Patient and/or family updated on plan of care and expected duration. Pain mb8 level reassessed. Patient is alert, oriented x 3, equal unlabored respirations, skin warm/dry/pink. 18:02 The patient tolerated 90mL of water. No drooling, immediate coughing, gurgling, or mb8 clearing of the throat was noted. The patient passed the bedside swallow screening. Oral medications may be given as ordered. Contact Physician for further diet orders. 18:02 Patient has been NPO before screening. The patient is alert, and able to follow mb8 commands. The patient does not exhibit slurred or garbled speech. The patient is not exhibiting difficulty speaking. The patient does not exhibit difficulty understanding words. The patient is exhibiting difficulty understanding words. The patient is able to swallow own secretions with no drooling or need for suction. Patient tolerated one teaspoon of water. No drooling, immediate coughing, gurgling, or clearing of the throat was noted. 18:03 Provider notified of bedside swallow screening results: Easton Layton DO. TNKase mb8 (Tenecteplase) Screening: Contraindications: Patient reports onset of signs and symptoms of stroke greater than 6 hours ago: Yes. Vital Signs: 12:28 BP 122 / 64 RA Supine (auto/reg); Pulse 77; Resp 16; Temp 98.1(TE); Pulse Ox 94% on mb8 R/A; Weight 75.3 kg (R); Height 5 ft. 8 in. (172.72 cm) (R); Pain 5/10; 13:24 BP 115 / 62; Pulse 74; Resp 20; Pulse Ox 93% on R/A; Pain 5/10; mb8 14:29 BP 127 / 66; Pulse 76; Resp 17 S; Temp 98(TE); Pulse Ox 92% on R/A; Pain 4/10; mb8 15:30 BP 112 / 77 RA Supine (auto/reg); Pulse 83; Resp 16; Pulse Ox 93% on R/A; Pain 4/10; mb8 12:28 Body Mass Index 25.24 (75.30 kg, 172.72 cm) mb8 NIH Stroke Scale Scores: 13:25 NIHSS Score: 12 mb8 ED Course: 12:28 Patient arrived in ED. mb8 12:30 Easton Layton DO is Attending Physician. ms3 12:33 Triage completed. mb8 12:33 Arm band placed on right wrist. Patient placed in an exam room. mb8 12:35 Patient has correct armband on for positive identification. mb8 12:38 No provider procedures requiring assistance completed. mb8 12:55 Client placed on continuous cardiac and pulse oximetry monitoring. NIBP monitoring mb8 applied. traffic monitor specialist on. Pulse ox on. NIBP on. 13:02 CT Head Brain wo Cont In Process Unspecified. EDMS 13:18 Inserted saline lock: 20 gauge in right antecubital area, using aseptic technique. mb8 13:22 Basic Metabolic Panel Sent. mb8 13:22 Troponin HS Sent. mb8 13:41 Bill Roland, RN is Primary Nurse. mb8 14:00 XRAY Chest (1 view) In Process Unspecified. EDMS 14:01 Jens Starks MD is Hospitalizing Provider. ms3 14:50 Repositioned patient. Cleaned of incontinence. Linen changed. mb8 15:53 Admitting physician to see patient. mb8 18:03 Patient admitted, IV remains in place. mb8 Administered Medications: 16:36 Drug: Aspirin 81 mg Route: PO; mb8 17:23 Follow up: Response: No adverse reaction mb8 16:36 Drug: Clopidogrel 75 mg Route: PO; mb8 17:22 Follow up: Response: No adverse reaction mb8 16:36 Drug: foLIC Acid 1 mg Route: PO; mb8 17:22 Follow up: Response: No adverse reaction mb8 16:36 Drug: Atorvastatin 40 mg Route: PO; mb8 17:22 Follow up: Response: No adverse reaction mb8 16:36 Drug: Flexeril (cyclobenzaprine) 5 mg Route: PO; mb8 17:22 Follow up: Response: No adverse reaction; Pain is decreased mb8 Medication: 18:04 VIS not applicable for this client. mb8 Outcome: 14:02 Decision to Hospitalize by Provider. ms3 18:02 Admitted to Med/surg accompanied by tech, via stretcher, room 208. mb8 18:02 Condition: stable 18:05 Patient left the ED. mb8 NIH Stroke Scale - NIH Stroke Score Date: 06/25/2022 Time: 13:25 Total Score = 12 1a. Level of Consciousness (LOC) - 0(Alert) 1b. Level of Consciousness (LOC) (Month \T\ Age) - 0(Both) 1c. LOC Commands (Open \T\ Closes Eyes/Marine Geologist) - 0(Both) 2. Best Gaze (Lateral Gaze Paresis) - 0(Normal) 3. Visual Field Loss - 0(No visual loss) 4. Facial Palsy - 0(Normal) 5a. Left Arm: Motor (10-second hold) - 3(No effort against gravity) 5b. Right Arm: Motor (10-second hold) - 1(Drift) 6a. Left Leg: Motor (5-second hold - always test supine) - 4(No movement) 6b. Right Leg: Motor (5-second hold - always test supine) - 2(Drift, some effort against gravity) 7. Limb Ataxia (finger/nose \T\ heel/thurman - test with eyes open) - 2(Present in two limbs) 8. Sensory Loss (pinprick arms/legs/face) - 0(Normal) 9. Best Language: Aphasia (description/naming/reading) - 0(No aphasia) 10. Dysarthria (speech clarity - read or repeat words) - 0(Normal) 11. Extinction and Inattention (visual/tactile/auditory/spatial/personal) - 0(No abnormality) Initials: harsh Signatures: Dispatcher [employer] EDMS Easton Lyaton DO DO ms3 Bill Roland RN RN mb8 Corrections: (The following items were deleted from the chart) 13:23 13:22 [facility]+H.LAB.KATHLEEN drawn and sent. harsh EDMS
--- NOTE | 2022-06-25 14:03 | EDPHYS ---
Physician Documentation [facility] Name: Yovanny Post Age: 66 yrs Sex: Male : 1955 Arrival Date: 06/25/2022 Time: 12:28 Bed 20 Private MD: ED Physician Easton Layton HPI: 06/25 14:02 This 66 yrs old Male presents to ER via EMS with complaints of Weakness. ms3 14:02 The patient presents to the emergency department with weakness of the right upper ms3 extremity, right lower extremity. Onset: The symptoms/episode began/occurred 2 week(s) ago. Context: Fell 2 weeks ago and has had increased weakness in his RUE and RLE. Associated signs and symptoms: The patient has no apparent associated signs or symptoms. Severity of symptoms: At their worst the symptoms were moderate in the emergency department the symptoms are worse. Current symptoms: Left sided deficits from previous CVA. Historical: - Allergies: 12:33 No Known Allergies; mb8 - PMHx: 12:33 Depression; GERD; insomnia; neuropathy; osteoarthritis; prostate problems; mb8 rhabdomyolysis; stroke; UTI; - Immunization history:: Client reports receiving the 1st dose of the Covid vaccine. - Social history:: Smoking status: Patient reports the use of cigarette tobacco products, smokes one-half pack cigarettes per day. ROS: 14:02 Constitutional: Negative for fever, and chills. ENT: Negative for injury, pain, and ms3 discharge, Neck: Negative for injury, pain, and swelling, Cardiovascular: Negative for chest pain, and palpitations. Respiratory: Negative for shortness of breath, cough, wheezing, and pleuritic chest pain, Abdomen/GI: Negative for abdominal pain, nausea, vomiting, diarrhea, and constipation. 14:02 MS/extremity: Positive for decreased range of motion. 14:02 Neuro: Positive for weakness. 14:02 All other systems are negative. Exam: 12:54 ECG was reviewed by the Attending Physician. ms3 16:58 Constitutional: This is a well developed, well nourished patient who is awake, alert, ms3 and in no acute distress. Head/Face: Normocephalic, atraumatic. Neck: Trachea midline, no cervical lymphadenopathy. Supple, full range of motion without nuchal rigidity, or vertebral point tenderness. No Meningismus. Chest/axilla: Normal chest wall appearance and motion. Nontender with no deformity. Cardiovascular: Regular rate and rhythm with a normal S1 and S2. No gallops, murmurs, or rubs. Normal PMI, no JVD. No pulse deficits. Respiratory: Lungs have equal breath sounds bilaterally, clear to auscultation and percussion. No rales, rhonchi or wheezes noted. No increased work of breathing, no retractions or nasal flaring. Abdomen/GI: Soft, non-tender, with normal bowel sounds. No distension or tympany. No guarding or rebound. No evidence of tenderness throughout. Skin: Warm, dry with normal turgor. Normal color with no rashes, no lesions, and no evidence of cellulitis. 16:58 Musculoskeletal/extremity: Bilateral UE and LE contractures. Vital Signs: 12:28 BP 122 / 64 RA Supine (auto/reg); Pulse 77; Resp 16; Temp 98.1(TE); Pulse Ox 94% on mb8 R/A; Weight 75.3 kg (R); Height 5 ft. 8 in. (172.72 cm) (R); Pain 5/10; 13:24 BP 115 / 62; Pulse 74; Resp 20; Pulse Ox 93% on R/A; Pain 5/10; mb8 14:29 BP 127 / 66; Pulse 76; Resp 17 S; Temp 98(TE); Pulse Ox 92% on R/A; Pain 4/10; mb8 15:30 BP 112 / 77 RA Supine (auto/reg); Pulse 83; Resp 16; Pulse Ox 93% on R/A; Pain 4/10; mb8 12:28 Body Mass Index 25.24 (75.30 kg, 172.72 cm) mb8 NIH Stroke Scale Scores: 13:25 NIHSS Score: 12 mb8 MDM: 12:30 Patient medically screened. ms3 14:02 Data reviewed: vital signs, nurses notes, lab test result(s), EKG, radiologic studies, ms3 and as a result, I will admit patient. Data interpreted: cloth classer: rate is 83 beats/min, rhythm is normal sinus rhythm, with no ectopy, Interpretation: normal rate, normal rhythm. Test interpretation: by ED physician or midlevel provider: ECG. Counseling: I had a detailed discussion with the patient and/or guardian regarding: the historical points, exam findings, and any diagnostic results supporting the discharge/admit diagnosis, lab results, radiology results, the need for further work-up and treatment in the hospital. 06/25 12:38 Order name: Basic Metabolic Panel; Complete Time: 13:57 ms3 06/25 12:38 Order name: CBC with Diff; Complete Time: 13:57 ms3 06/25 12:38 Order name: Troponin HS; Complete Time: 13:57 ms3 06/25 12:38 Order name: XRAY Chest (1 view) ms3 06/25 12:38 Order name: CT Head Brain wo Cont; Complete Time: 13:57 ms3 06/25 15:20 Order name: SARS RAPID ll1 06/25 17:26 Order name: Lipid Profile EDMS 06/25 12:38 Order name: EKG; Complete Time: 12:40 ms3 06/25 12:38 Order name: Cardiac monitoring; Complete Time: 12:44 ms3 06/25 12:38 Order name: EKG - Nurse/Tech; Complete Time: 12:44 ms3 06/25 12:38 Order name: IV Saline Lock; Complete Time: 13:22 ms3 06/25 12:38 Order name: Labs collected and sent; Complete Time: 13:22 ms3 06/25 12:38 Order name: O2 Per Protocol; Complete Time: 12:44 ms3 06/25 12:38 Order name: O2 Sat Monitoring; Complete Time: 12:44 ms3 EC:54 Rate is 78 beats/min. Rhythm is regular. QRS [place] is Normal. TN interval is normal. QRS ms3 interval is normal. Clinical impression: Normal ECG. Interpreted by me. Reviewed by me. Administered Medications: 16:36 Drug: Aspirin 81 mg Route: PO; mb8 17:23 Follow up: Response: No adverse reaction mb8 16:36 Drug: Clopidogrel 75 mg Route: PO; mb8 17:22 Follow up: Response: No adverse reaction mb8 16:36 Drug: foLIC Acid 1 mg Route: PO; mb8 17:22 Follow up: Response: No adverse reaction mb8 16:36 Drug: Atorvastatin 40 mg Route: PO; mb8 17:22 Follow up: Response: No adverse reaction mb8 16:36 Drug: Flexeril (cyclobenzaprine) 5 mg Route: PO; mb8 17:22 Follow up: Response: No adverse reaction; Pain is decreased mb8 Disposition Summary: 06/25/22 14:02 Hospitalization Ordered Hospitalization Status: Inpatient Admission ms3 Provider: Jens Starks ms3 Location: Telemetry/MedSurg (Inpatient) ms3 Condition: Stable ms3 Problem: new ms3 Symptoms: are unchanged ms3 Bed/Room Type: Standard ms3 Room Assignment: 208(06/25/22 17:11) bd Diagnosis - Ischemic CVA ms3 - Right sided weakness ms3 Forms: - Medication Reconciliation Form ms3 - SBAR form ms3 NIH Stroke Scale - NIH Stroke Score Date: 06/25/2022 Time: 13:25 Total Score = 12 1a. Level of Consciousness (LOC) - 0(Alert) 1b. Level of Consciousness (LOC) (Month \T\ Age) - 0(Both) 1c. LOC Commands (Open \T\ Closes Eyes/Chocolate Maker) - 0(Both) 2. Best Gaze (Lateral Gaze Paresis) - 0(Normal) 3. Visual Field Loss - 0(No visual loss) 4. Facial Palsy - 0(Normal) 5a. Left Arm: Motor (10-second hold) - 3(No effort against gravity) 5b. Right Arm: Motor (10-second hold) - 1(Drift) 6a. Left Leg: Motor (5-second hold - always test supine) - 4(No movement) 6b. Right Leg: Motor (5-second hold - always test supine) - 2(Drift, some effort against gravity) 7. Limb Ataxia (finger/nose \T\ heel/thurman - test with eyes open) - 2(Present in two limbs) 8. Sensory Loss (pinprick arms/legs/face) - 0(Normal) 9. Best Language: Aphasia (description/naming/reading) - 0(No aphasia) 10. Dysarthria (speech clarity - read or repeat words) - 0(Normal) 11. Extinction and Inattention (visual/tactile/auditory/spatial/personal) - 0(No abnormality) Initials: mb8 Signatures: Dispatcher [employer] EDNora Wood Lynsay, RN RN ll1 Easton Layton, DO ms3 Bill Roland RN RN mb8 Corrections: (The following items were deleted from the chart) 13:23 12:47 CBC+H.LAB.BRZ ordered. EDMS EDMS 16:51 16:47 This 66 yrs old Male presents to ER via EMS with complaints of Weakness. ms3 ms3 17:11 14:02 ms3 bd
--- NOTE | 2022-06-25 14:15 | RAD REPORT ---
EXAM DESCRIPTION: RAD - Chest Single View - 06/25/2022 1:58 pm CLINICAL HISTORY: Right sided weakness COMPARISON: Portable 05/06/2022 TECHNIQUE: AP portable chest image was obtained 06/25/2022 1:58 pm . FINDINGS: Chronic interstitial lung changes are present matching comparison. No acute failure, volum e overload, infiltrate or focal mass. Hilar regions are stable. Heart and vasculature are normal. No measurable pleural effusion and no pneumothorax. No acute bony abnormality seen. No acute aortic findings suspected. IMPRESSION: No acute cardiopulmonary process.
[2022-06-25] MEDS ORDERED: HYDROCODONE/APAP 5/325 MG TAB PO PRN (15:54)
[2022-06-25] MEDS ORDERED: ACETAMINOPHEN 500 MG TAB PO PRN (15:55)
[2022-06-25] MEDS ORDERED: ONDANSETRON 4 MG/2 ML VIAL IV PRN (15:55)
[2022-06-25] MEDS ORDERED: guaiFENesin 100 MG/5 ML UCUP PO PRN (15:58)
[2022-06-25] MEDS ORDERED: ASPIRIN 325 MG TAB PO SCH (16:00)
[2022-06-25 16:01] LABS: SARS-CoV-2 Antigen Rapid Res Negative (Negative)
--- NOTE | 2022-06-25 16:03 | P.HP ---
Certification for Inpatient Patient admitted to: Inpatient With expected LOS: >2 Midnights Patient will require the following post-hospital care: None Practitioner: I am a practitioner with admitting privileges, knowledge of patient current condition, hospital course, and medical plan of care. Services: Services provided to patient in accordance with Admission requirements found in Title 42 Section 412.3 of the Code of Federal Regulations <Moncho Atkinson Maricarmen - Last Filed: 06/25/22 18:27> Patient History Date of Service: 06/25/22 Reason for admission: Right-sided weakness History of Present Illness: Patient is a 66-year-old male with a past medical history significant for depression, anxiety disorder, GERD, insomnia, neuropathy, osteoarthritis, BPH, insomnia, CODY,CVA, hypertension, CKD, COPD who presents with complaint of right sided weakness. Patient reported that he fell 2 weeks ago and since then he has been having weakness in the right side. Patient reported that he is paralyzed on the left side from a previous stroke. Patient indicated that right sided extremity weakness became worse over time and now patient is unable to move his right LE. Patient is able to move the right upper extremity but notable weakness noted on right upper extremity. Patient reported that he is wheelchair-bound. Patient denies any other signs or symptoms. Symptoms are aggravated or relieved by nothing. Patient was brought to the hospital for medical evaluation. - Past Medical/Surgical History Diabetic: No -: Hypertension -: CVA with L sided deficits -: COPD -: CKD3 -: CHF (unknown EF) -: GERD -: UTI Past Surgical History: Reviewed- Non-Contributory Psychosocial/ Personal History: Patient is . He lives at [place]. - Family History Father -: Cancer Mother -: Cancer - Social History Smoking Status: Current every day smoker Counseled patient to stop smoking for: less than 10 minutes Smoking therapy provided: Yes Patient receptive to therapy: Yes Alcohol use: Yes CD- Drugs: No Caffeine use: Yes Place of Residence: Care Home <JustenmaricarmenMoncho - Last Filed: 06/25/22 18:27> Date of Service: 06/25/22 <Jens Starks - Last Filed: 06/25/22 19:59> Allergies No Known Allergies Allergy (Unverified 05/06/22 21:54) Home Medications: ARIPiprazole [Abilify*] 10 mg PO DAILY 05/07/22 Acetaminophen [Tylenol] 650 mg PO Q6HP PRN 05/07/22 Ascorbate Calcium [Vitamin C] 1,000 mg PO DAILY 05/07/22 Aspirin 81 mg PO DAILY 05/07/22 Benzonatate [Tessalon Perle*] 100 mg PO TID PRN #30 cap 05/07/22 Cholecalciferol (Vitamin D3) [Vitamin D 1000 Iu Tab*] 2,000 unit PO DAILY 05/07 Cyclobenzaprine HCl [Flexeril] 1 tab PO BEDTIME 05/07/22 Diphenhydramine [Benadryl*] 1 tab PO BEDTIME PRN PRN 05/07/22 Duloxetine HCl [Cymbalta] 60 mg PO BID 05/07/22 Famotidine [Pepcid] 20 mg PO BID 05/07/22 Fenofibrate [Tricor*] 145 mg PO BEDTIME 05/07/22 Ferrous Sulfate [Ferrous Sulfate*] 1 tab PO DAILY 05/07/22 Finasteride [Proscar*] 5 mg PO DAILY 05/07/22 Gabapentin [Neurontin*] 400 mg PO TID 05/07/22 Guaifenesin 400 mg PO TID 05/07/22 Hydralazine HCl [Apresoline] 50 mg PO TID 05/07/22 Ipratropium/Albuterol Sulfate [Iprat-Albut 0.5-3(2.5) mg/3 ml] 1 dose IH Q6HP PRN 05/07/22 Melatonin 10 mg PO BEDTIME 05/07/22 Nifedipine [Nifedipine ER] 90 mg PO DAILY 05/07/22 Omeprazole [Prilosec] 1 tab PO DAILY 05/07/22 Tamsulosin [Flomax*] 1 tab PO DAILY 05/07/22 Zinc Sulfate [Zinc Sulfate*] 1 tab PO DAILY 05/07/22 predniSONE [Deltasone] 20 mg PO DAILY #7 tab 05/07/22 Review of Systems General: Weakness Eyes: Unremarkable ENT: Unremarkable Respiratory: Unremarkable Cardiovascular: Unremarkable Gastrointestinal: Unremarkable Genitourinary: Unremarkable Musculoskeletal: Other (Left upper arm contracture.) Integumentary: Unremarkable Neurological: Weakness Lymphatics: Unremarkable <Moncho Atkinson E - Last Filed: 06/25/22 18:27> Physical Examination - Physical Exam General: Alert, Oriented x3 HEENT: Atraumatic, Normocephalic Neck: 2+ carotid pulse no bruit, JVD not distended Respiratory: Clear to auscultation bilaterally, Normal air movement Cardiovascular: No edema, Normal pulses, Regular rate/rhythm Capillary refill: <2 Seconds Gastrointestinal: Normal bowel sounds, Soft and benign Musculoskeletal: No clubbing, No swelling, No contractures Integumentary: No rashes, No breakdown, No significant lesion Neurological: Other (Unable to walk, w\c bound ), Abnormal strength Lymphatics: No axilla or inguinal lymphadenopathy - Studies Laboratory Data (last 24 hrs) 06/25/22 13:18: WBC 8.70 D, Hgb 13.3 L, Hct 41.3, Plt Count 485 H 06/25/22 13:18: Sodium 138, Potassium 4.1, BUN 27 H, Creatinine 1.58 H, Glucose 120 H <Moncho Atkinson - Last Filed: 06/25/22 18:27> - Studies Laboratory Data (last 24 hrs) 06/25/22 13:18: WBC 8.70 D, Hgb 13.3 L, Hct 41.3, Plt Count 485 H 06/25/22 13:18: Sodium 138, Potassium 4.1, BUN 27 H, Creatinine 1.58 H, Glucose 120 H 06/25/22 13:16: Triglycerides 133, Cholesterol 121, HDL Cholesterol 36 L, Cholesterol/HDL Ratio 3.36 <Jens Starks - Last Filed: 06/25/22 19:59> Assessment and Plan - Plan -- CVA. Noted on imaging. Neurology consulted. Continue aspirin and statin. PT eval and treat. Further management per neurologist. --Hypertension. Will allow for permissive hypertension pending assessment by neurologist continue to monitor blood pressure --CKD 3A. Baseline functions unknown. We will continue to monitor renal functions. -- GERD. Continue home medication. --Depression\anxiety disorder\Insomnia. Continue home medication. --Osteoarthritis. We will manage pain with current pain medication regimen. --BPH. Continue home medication. --History of CVA. With a deficit of left-sided paralysis. Continue aspirin and statin. --CODY. Continue ferrous sulfate. --COPD. Stable. Continue home medications. -- DVT prophylaxis with heparin subcu. Discharge Plan: Care Home Plan to discharge in: Greater than 2 days - Advance Directives Does patient have a Living Will: No Does patient have a Durable POA for Healthcare: No - Code Status/Comfort Care Code Status Assessed: Yes Code Status: Full Code Physician Review: Patient Assessed, Agree with Above Assessment and Plan Critical Care: No <Moncho Atkinson - Last Filed: 06/25/22 18:27> Physician Review: Patient Assessed, Agree with Above Assessment and Plan Physician Review Additional Text: Mr. Post is a pleasant 66 year old male admitted for an acute/subacute nonhemorrhagic CVA posterior left frontal lobe near the frontoparietal junction. His last known normal is 2 weeks ago, so he is out of window for TNK. NIH Stroke Scale 1a. Level of consciousness: 0 - Alert; keenly responsive 1b. LOC questions: 0 - Both questions right 1c. LOC commands: 0 - Performs both tasks 2. Best Gaze: 0 - Normal 3. Visual: 0 - No visual loss 4. Facial Palsy: 2 - partial paralysis (lower face) 5a. Motor left arm: 4 - No movement 5b. Motor right arm: 2 - some effort against gravity 6a. Motor left le - No movement 6b. Motor right le - No movement 7. Limb ataxia: 0 - No ataxia 8. Sensory: 0 - Normal; no sensory loss 9. Best Language: 0 - Normal; no aphasia 10. Dysarthria: 0 - Normal 11. Extinction and Inattention: 0 - No abnormality 12. Distal motor function: 0 - No abnormality Total Score: 16 (has residual deficits from prior CVA) - Admit to Medicine - Consulted Neurology - Ordered MRI brain, MRA head/neck, TTE - Started aspirin, atorvastatin, clopidogrel, folic acid - Consulted PT/OT Jens Starks M.D. <Jens Starks - Last Filed: 06/25/22 19:59>
[2022-06-25] MEDS ORDERED: CYCLOBENZAPRINE 10 MG TAB ONE (16:37)
[2022-06-25] MEDS ORDERED: ATORVASTATIN 20 MG TAB ONE (16:38)
[2022-06-25] MEDS ORDERED: FOLIC ACID 1 MG TABLET ONE (16:38)
[2022-06-25] MEDS ORDERED: ASPIRIN 81 MG CHEWABLE TABLET ONE (16:38)
[2022-06-25] MEDS ORDERED: CLOPIDOGREL 75 MG TABLET ONE (16:38)
[2022-06-25 16:55] VITALS: BMI 25.2
[2022-06-25] MEDS ORDERED: BENZONATATE 100 MG CAP PO PRN (18:14)
[2022-06-25] MEDS ORDERED: DIPHENHYDRAMINE 25 MG TAB/CAP PO PRN (18:14)
[2022-06-25] MEDS ORDERED: ALBUTEROL 2.5 MG/3 ML NEB SOL NEB PRN (18:22)
[2022-06-25] MEDS ORDERED: IPRATROPIUM BROM 0.5MG/2.5ML IH PRN (18:41)
[2022-06-25] MEDS ORDERED: GUAIFENESIN 600 MG SA TAB PO SCH (21:00)
[2022-06-25] MEDS ORDERED: GABAPENTIN 400 MG CAP PO SCH (21:00)
[2022-06-25] MEDS ORDERED: FAMOTIDINE 20 MG TAB PO SCH (21:00)
[2022-06-25] MEDS: MELATONIN 5 MG TABLET PO SCH (21:46)
[2022-06-25] MEDS: CYCLOBENZAPRINE 10 MG TAB PO SCH (21:47)
[2022-06-25] MEDS: FOLIC ACID 1 MG TABLET PO SCH (21:48)
[2022-06-25] MEDS: CLOPIDOGREL 75 MG TABLET PO SCH (21:48)
[2022-06-25] MEDS: ATORVASTATIN 40 MG TAB PO SCH (21:49)
[2022-06-25] MEDS: GABAPENTIN 300 MG CAP PO SCH (21:49)
[2022-06-25] MEDS: HEPARIN 5000 UNIT/ML 1 ML VIAL SQ SCH (21:49)
[2022-06-25] MEDS: FENOFIBRATE 160 MG TAB PO SCH (21:49)
[2022-06-25] MEDS: DULOXETINE 30 MG CAP PO SCH (21:49)
[2022-06-26 06:15] LABS: Absolute Lymphocytes (CBC) 1.1 K/uL (0.7-4.9); Hematocrit 35.7 % (39.6-49.0); Lymphocytes % 16.1 % (15.3-44.8); MCV 84.9 fL (80-100); MPV 7.5 fL (7.6-11.3); RBC Red Blood Cell Count 4.21 M/uL (4.33-5.43)
[2022-06-26] MEDS: PANTOPRAZOLE 40MG TABLET PO SCH (06:23)
[2022-06-26 06:27] LABS: Potassium 3.9 mmol/L (3.5-5.1)
[2022-06-26] MEDS ORDERED: predniSONE 20 MG TAB PO SCH (09:00)
[2022-06-26] MEDS ORDERED: POTASSIUM CL SA 10 MEQ TAB PO ONE (09:00)
--- NOTE | 2022-06-26 10:28 | RAD REPORT ---
EXAM DESCRIPTION: MRI - Brain W/Wo Cont - 06/26/2022 10:13 am CLINICAL HISTORY: Stroke COMPARISON: Head C Spine Cap Wo Con dated 06/17/2022; Head Brain Wo Cont dated 06/25/2022 TECHNIQUE: Multisequence, multiplanar imaging was obtained of the brain with particular attention to the IAC's. Contrast was administered. FINDINGS: Large remote right MCA territory infarct. Enhancing structure in the left posterior fronta l lobe involving the precentral gyrus with associated gyral edema and curvilinear diffusion restricti on. No hydrocephalus. The right lateral ventricle is asymmetrically enlarged as result of the degree of encephalomalacia. No significant mass effect or midline shift. IMPRESSION: Enhancing "lesion" in the left precentral gyrus which was not identified on the CT from 06/17/2022 but was seen on 06/25/2022. A subacute infarct is suspected but follow-up MRI with contras t in 4-6 weeks is recommended to exclude alternate process such as a neoplasm.
--- NOTE | 2022-06-26 10:36 | RAD REPORT ---
EXAM DESCRIPTION: MRI - MRA Neck W/Wo Cont - 06/26/2022 10:13 am CLINICAL HISTORY: Stroke COMPARISON: None FINDINGS: Contrast enhance 2D [id number] MR angiography of the neck vessels was performed. Long segment right ICA occlusion from its origin. A mild stenosis is present at the right proximal EC A. Moderate (50-70%) stenosis noted at the left proximal ICA. A moderate to severe stenosis is presen t at the left proximal ECA. Both common carotid arteries are widely patent. The origins of both vertebral arteries are not well assessed due to artifact. They do appear grossly patent and codominant. IMPRESSION: 1. Long segment presumably chronic right ICA occlusion. The patient has a history of a l arge right MCA territory infarct. 2. Moderate left proximal ICA stenosis.
[2022-06-26] MEDS: FERROUS SULFATE 325 MG TAB PO SCH (10:38)
[2022-06-26] MEDS: ARIPiprazole 5 MG TAB PO SCH (10:38)
[2022-06-26] MEDS: DULOXETINE 30 MG CAP PO SCH ×2 (10:39→21:46)
[2022-06-26] MEDS: GABAPENTIN 300 MG CAP PO SCH ×3 (10:39→21:46)
[2022-06-26] MEDS: VITAMIN D 1000 UNIT TAB PO SCH (10:39)
[2022-06-26] MEDS: ASCORBIC ACID 500 MG TABLET PO SCH (10:39)
[2022-06-26] MEDS: FINASTERIDE 5 MG TAB PO SCH (10:40)
[2022-06-26] MEDS: CLOPIDOGREL 75 MG TABLET PO SCH (10:40)
[2022-06-26] MEDS: FOLIC ACID 1 MG TABLET PO SCH (10:40)
[2022-06-26] MEDS: ZINC SULFATE 220 MG CAP PO SCH (10:40)
[2022-06-26] MEDS: TAMSULOSIN 0.4 MG SR CAP PO SCH (10:40)
[2022-06-26] MEDS: HEPARIN 5000 UNIT/ML 1 ML VIAL SQ SCH ×2 (10:41→21:45)
[2022-06-26] MEDS: ASPIRIN 81 MG CHEWABLE TABLET PO SCH (10:41)
--- NOTE | 2022-06-26 10:43 | RAD REPORT ---
EXAM DESCRIPTION: MRI - MRA Head Wo Cont - 06/26/2022 10:12 am CLINICAL HISTORY: Stroke CVA COMPARISON: No comparisonsBrain W/Wo Cont dated 06/26/2022 FINDINGS: 3D noncontrast evgn-pa-oizgen MR angiography of the [place] was performed. Long segment occlusion of the right ICA extends from the neck into the intracranial portion. The ICA is completely occluded. Some collateral flow is present resulting in a diminutive but patent right AC A and MCA. The left ICA, MCA, EULOGIO are patent. Both vertebral arteries and posterior cerebral arteries are patent. IMPRESSION: Presumably chronically occluded right ICA with mild reconstitution of the right MCA and EULOGIO. No left-sided occlusion is identified to correspond with the suspected left frontal lobe infarct . The posterior circulation is intact.
--- NOTE | 2022-06-26 14:29 | EKG ---
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
--- NOTE | 2022-06-26 14:52 | P.PN ---
Subjective Date of Service: 06/26/22 Chief Complaint: Right-sided weakness Subjective: No new changes No acute events overnight. Neurologic deficits appear unchanged compared to yesterday. He is in good spirits today. Review of Systems 10-point ROS is otherwise unremarkable General: Weakness Neurological: Weakness Physical Examination - Vital Signs Temperature: 97.4 F Blood Pressure: 142/76 Pulse: 72 Respirations: 18 Pulse Ox (%): 91 - Physical Exam General: Alert, In no apparent distress, Oriented x3 HEENT: Atraumatic, PERRLA Neck: Supple, JVD not distended Respiratory: Clear to auscultation bilaterally, Normal air movement Cardiovascular: No edema, Regular rate/rhythm, Normal S1 S2, No gallops, No rubs, No murmurs Gastrointestinal: Normal bowel sounds, Soft and benign, Non-distended, No tenderness, No rebound, No guarding Musculoskeletal: No clubbing Integumentary: No rashes Neurological: Normal speech, Sensation intact, Cranial nerves 3-12 intact, Normal affect, Abnormal strength (0/5 strength in LUE, and BLE. 2/5 strength in RUE), Abnormal tone, Abnormal reflexes - Studies Laboratory Data (last 24 hrs) 06/25/22 13:16: Triglycerides 133, Cholesterol 121, HDL Cholesterol 36 L, Cholesterol/HDL Ratio 3.36 Assessment And Plan - Plan NIH Stroke Scale 1a. Level of consciousness: 0 - Alert; keenly responsive 1b. LOC questions: 0 - Both questions right 1c. LOC commands: 0 - Performs both tasks 2. Best Gaze: 0 - Normal 3. Visual: 0 - No visual loss 4. Facial Palsy: 2 - partial paralysis (lower face) 5a. Motor left arm: 4 - No movement 5b. Motor right arm: 2 - some effort against gravity 6a. Motor left le - No movement 6b. Motor right le - No movement 7. Limb ataxia: 0 - No ataxia 8. Sensory: 0 - Normal; no sensory loss 9. Best Language: 0 - Normal; no aphasia 10. Dysarthria: 0 - Normal 11. Extinction and Inattention: 0 - No abnormality 12. Distal motor function: 0 - No abnormality Total Score: 16 (has residual deficits from prior CVA) # Subacute Left Frontoparietal Cerebrovascular Accident # History of Large Right MCA Cerebrovascular Accident with Residual Left-Sided Deficits # Presumed Chronically Occluded Right Internal Carotid Artery # Moderate Left Proximal Internal Carotid Artery Stenosis - Consulted Neurology and Dr. Benson notified - recommendations appreciated - Outside window for TNK - q4hr neurochecks - CT head = "Acute/subacute nonhemorrhagic CVA posterior left frontal lobe near the frontoparietal junction. No mass effect, edema or shift of midline structures. Right cerebral encephalomalacia has not change from June 17 imaging." - MRI brain = "Enhancing "lesion" in the left precentral gyrus which was not identified on the CT from 06/17/2022 but was seen on 06/25/2022. A subacute infarct is suspected but follow-up MRI with contrast in 4-6 weeks is recommended to exclude alternate process such as a neoplasm." - MRA head = "Presumably chronically occluded right ICA with mild reconstitution of the right MCA and EULOGIO. No left-sided occlusion is identified to correspond with the suspected left frontal lobe infarct. The posterior circulation is intact." - MRA neck = "1. Long segment presumably chronic right ICA occlusion. The patient has a history of a large right MCA territory infarct. 2. Moderate left proximal ICA stenosis." - Ordered TTE - PT/OT evaluation requested - Ordered risk profile: - Hgb A1c = 5.8 % - Lipid panel = TC 121, TG 133, LDL 58, HDL 36 - TSH = pending - Started aspirin, atorvastatin, folic acid, clopidogrel # Chronic Kidney Disease Stage III # Hypertension - Monitor creatinine and urine output - Renally dose medications # Iron-Deficiency Anemia # Chronic Obstructive Pulmonary Disease # Benign Prostatic Hyperplasia # Depression/Anxiety # Gastroesophageal Reflux Disease # Osteoarthritis - Continue home medications Jens Starks M.D.
[2022-06-26] MEDS: CYCLOBENZAPRINE 10 MG TAB PO SCH (21:45)
[2022-06-26] MEDS: FENOFIBRATE 160 MG TAB PO SCH (21:45)
[2022-06-26] MEDS: ATORVASTATIN 40 MG TAB PO SCH (21:45)
[2022-06-26] MEDS: MELATONIN 5 MG TABLET PO SCH (21:46)
--- NOTE | 2022-06-26 23:41 | CON ---
Reason For Consultation: Consultation called because of new right-sided weakness. History Of Present Illness: Mr. Post is a 66-year-old patient with a history of a remote large right MCA stroke with dense left upper and lower extremity paresis for 3 years who is wheelchair bound, bu t was able to transfer up to about 2 weeks ago when he developed more right-sided weakness. He said the weakness involved his arm and leg, less so his face. He fell 2 weeks ago and has been unable to do his transfers as he usually was able to do. He does have additional comorbid conditions of hypert ension, COPD, congestive heart failure, and gastroesophageal reflux disease. At [facility] his head CT scan identified a possible acute to subacute nonhemorrhagic stroke in the left frontal lo be near the parietofrontal junction in addition to the chronic large stroke in his right MCA territor y. A subsequent magnetic resonance angiogram identified the area as an "enhancing lesion" in the lef t precentral gyrus and that study was not identified on a CT scan from June 17, but was seen on . The appearance does suggest a subacute infarct, but the radiologist recommended a repeat MRI with contrast in about 6 weeks to exclude a possible neoplasm. His magnetic resonance angiogram of the neck showed occlusion in a long segment, which is chronic of the right internal carotid artery . There was moderate left proximal internal carotid artery stenosis. Past Medical History: As noted. Past Surgical History: None. Family History: Cancer in mother and father. Social History: The patient resides at [facility] and is . He does smoke tobacc o cigarettes and does use alcohol. Allergies: NO KNOWN DRUG ALLERGIES. Home Medications: Abilify 10 mg daily, Tylenol 650 every 6 hours as needed, vitamin C 1000 mg daily, aspirin 81 mg daily, Tessalon Perles 100 mg 3 times daily, vitamin D3 2000 units daily, Flexeril 10 mg daily, Benadryl 25 mg at bedtime, Cymbalta 60 mg twice daily, Pepcid 20 mg daily, Tricor 145 mg at bedtime, ferrous sulfate daily, Proscar 5 mg daily, gabapentin 400 mg 3 times daily, apresoline 50 m g 3 times daily, ipratropium albuterol inhaler every 6 hours as needed, melatonin 10 mg at bedtime, n ifedipine 90 mg daily, Prilosec daily, Flomax 0.4 mg at night, and prednisone 10 mg daily. Review of Systems: As noted, the weakness that is dense on the left upper and lower extremities, more right-sided weakne ss, more difficulty with transfers and actually now unable to transfer, numbness in the left upper an d lower extremities, and mild numbness in the right upper and lower extremities. Otherwise, he denie s any significant positives on a 10 point systems review. Physical Examination: Vital Signs: Blood pressure 118/63, pulse 75, respiratory rate 16, temperature 98, oxygen saturation 97% on room air and did go down to 90% at one point. He is 166 pounds, height 5 feet 8 inches, BMI 25.2. General: Mr. Post is resting in bed. He is in no significant distress. HEENT: He does appear normocephalic. He has poor dentition. Otherwise, he is atraumatic. Sclerae anicteric. Oropharynx is moist and pink. Extremities: He had some edema in the left upper and lower extremities, compared to the right side. Neurologic: On cranial nerves, he does have a decrease in the left nasolabial fold. Clear excursion s on the right and also on the left. He has poor labial, lingual, and guttural sounds, otherwise dec reased sensation on the left compared to right face. On motor examination, dense paresis to the left upper and lower extremities. On the right side, 4/5 proximally and distally. On gait, he is unable to ambulate. Reflexes increased on the left upper extremity and lower extremity. He has coordinati on intact in the right upper and lower extremities. Laboratory Studies: Complete blood count with differential shows a normal white blood cell count of 11.7. Chemistries show creatinine of 1.43. LDL cholesterol 58, HDL 36. COVID-19 test is negative. Assessment: Mr. Post is a 66-year-old patient with a large right MCA stroke and dense left hemipares is that left him nonambulatory. He does have a right frontoparietal mass suspicious for stroke, alth ough mass such as a lesion cannot be ruled out. He may need further evaluation to rule that out. Plan: 1.The patient may benefit from physical therapy at [place]. 2.He should have the repeat interval MRI as indicated. 3.Address comorbid conditions as indicated. 4.The patient will be followed while in the hospital. NEENA Voice ID: [id number] Report ID: [id number]
[2022-06-27 04:58] VITALS: O2SAT 95
[2022-06-27 05:24] LABS: Potassium 3.8 mmol/L (3.5-5.1); Thyroid Stimulating Hormone 1.65 uIU/mL (0.360-3.740)
[2022-06-27] MEDS: PANTOPRAZOLE 40MG TABLET PO SCH (05:51)
--- NOTE | 2022-06-27 07:11 | P.DS ---
Admission Date: 06/25/22 Discharge Date: 06/27/22 Disposition: TRANSFER TO LONG TERM Discharge Condition: GOOD Reason for Admission: Right-sided weakness Consultations: 1. Neurology Hospital Course: DIAGNOSES: # Subacute Left Frontoparietal Cerebrovascular Accident # History of Large Right MCA Cerebrovascular Accident with Residual Left-Sided Deficits # Presumed Chronically Occluded Right Internal Carotid Artery # Moderate Left Proximal Internal Carotid Artery Stenosis # Chronic Kidney Disease Stage III # Hypertension # Iron-Deficiency Anemia # Chronic Obstructive Pulmonary Disease # Benign Prostatic Hyperplasia # Depression/Anxiety # Gastroesophageal Reflux Disease # Osteoarthritis HOSPITAL COURSE: Mr. Yovanny Post is a pleasant 66 year old male with a past medical history significant for prior right middle cerebral artery cerebrovascular accident with residual left-sided deficits, chronic obstructive pulmonary disease, benign prostatic hyperplasia, chronic kidney disease stage III, hypertension, depression, anxiety, and gastroesophageal reflux disease who was admitted to the [facility] on 06/25/2022 for acute neurologic deficits. Upon further evaluation, he was found to have a subacute left frontoparietal cerebrovascular accident. He was admitted to the Medicine service and Neurology was consulted. He was evaluated by Dr. Benson and was outside of the window for tenecteplase. Further evaluation included a CT head which revealed, " acute/subacute nonhemorrhagic CVA posterior left frontal lobe near the frontoparietal junction. No mass effect, edema or shift of midline structures. Right cerebral encephalomalacia has not change from June 17 imaging," an MRI brain which revealed, "Enhancing "lesion" in the left precentral gyrus which was not identified on the CT from 06/17/2022 but was seen on 06/25/2022. A subacute infarct is suspected but follow-up MRI with contrast in 4-6 weeks is recommended to exclude alternate process such as a neoplasm," an MRA head which revealed, " Presumably chronically occluded right ICA with mild reconstitution of the right MCA and EULOGIO. No left-sided occlusion is identified to correspond with the suspected left frontal lobe infarct. The posterior circulation is intact," and an MRA neck which revealed, "1. Long segment presumably chronic right ICA occlusion. The patient has a history of a large right MCA territory infarct. 2. Moderate left proximal ICA stenosis." A transthoracic echocardiogram revealed, " mild tricuspid regurgitation. normal left ventricular size and function. No thrombus. No vegetation." He was evaluated by physical therapy and deemed not to be a candidate for inpatient rehab. It was advised that he return back to a detention facility to receive continued physical therapy services. On 06/27/2022, he was seen on morning rounds and deemed medically stable for discharge. He was discharged with instructions to schedule follow-up appointments with PCP in 3-5 days and with neurology (Dr. Benson) in 5-7 days. He was started on aspirin, atorvastatin, folic acid, and clopidogrel. He was given the opportunity to ask questions and reported no further questions. Furthermore, all questions were answered to the best of my ability. Additionally, he was advised to follow-up with his PCP for repeat imaging in 4 to 6 weeks as there was a finding concerning for possible underlying neoplasm. He verbalized his understanding and agreed to make this appointment. Today, I personally spent 20 minutes on his case, of which greater than 50% of the time was spent in patient education, counseling, and coordination of care as described above. - Physical Exam General: Alert, In no apparent distress, Oriented x3 HEENT: Atraumatic, PERRLA Neck: Supple, JVD not distended Respiratory: Clear to auscultation bilaterally, Normal air movement Cardiovascular: No edema, Regular rate/rhythm, Normal S1 S2, No gallops, No rubs, No murmurs Gastrointestinal: Normal bowel sounds, Soft and benign, Non-distended, No tenderness, No rebound, No guarding Musculoskeletal: No clubbing Integumentary: No rashes Neurological: Normal speech, Sensation intact, Cranial nerves 3-12 intact, Normal affect, Abnormal strength (0/5 strength in LUE, and BLE. 2/5 strength in RUE), Abnormal tone, Abnormal reflexes NIH Stroke Scale 1a. Level of consciousness: 0 - Alert; keenly responsive 1b. LOC questions: 0 - Both questions right 1c. LOC commands: 0 - Performs both tasks 2. Best Gaze: 0 - Normal 3. Visual: 0 - No visual loss 4. Facial Palsy: 2 - partial paralysis (lower face) 5a. Motor left arm: 4 - No movement 5b. Motor right arm: 2 - some effort against gravity 6a. Motor left le - No movement 6b. Motor right le - No movement 7. Limb ataxia: 0 - No ataxia 8. Sensory: 0 - Normal; no sensory loss 9. Best Language: 0 - Normal; no aphasia 10. Dysarthria: 0 - Normal 11. Extinction and Inattention: 0 - No abnormality 12. Distal motor function: 0 - No abnormality Total Score: 16 (has residual deficits from prior CVA) Vital Signs/Physical Exam: Temp Pulse Resp BP Pulse Ox 98.3 F 84 16 151/80 H 95 06/27/22 04:00 06/27/22 04:00 06/27/22 04:00 06/27/22 04:00 06/27/22 04:00 Laboratory Data at Discharge: WBC 7.10 K/uL (4.3-10.9) D 06/26/22 05:41 Hgb 11.7 g/dL (13.6-17.9) L 06/26/22 05:41 Hct 35.7 % (39.6-49.0) L 06/26/22 05:41 Plt Count 425 K/uL (152-406) H 06/26/22 05:41 Sodium 139 mmol/L (136-145) 06/27/22 04:18 Potassium 3.8 mmol/L (3.5-5.1) 06/27/22 04:18 BUN 27 mg/dL (7-18) H 06/27/22 04:18 Creatinine 1.51 mg/dL (0.55-1.3) H 06/27/22 04:18 Glucose 108 mg/dL (74-106) H 06/27/22 04:18 Triglycerides 133 mg/dL (<150) 06/25/22 13:16 Cholesterol 121 mg/dL (<200) 06/25/22 13:16 HDL Cholesterol 36 mg/dL (40-60) L 06/25/22 13:16 Cholesterol/HDL Ratio 3.36 06/25/22 13:16 Home Medications: Acetaminophen [Tylenol] 650 mg PO Q6HP PRN 05/07/22 Aspirin 81 mg PO DAILY 05/07/22 Cyclobenzaprine HCl [Flexeril] 1 tab PO BEDTIME 05/07/22 Duloxetine HCl [Cymbalta] 60 mg PO BID 05/07/22 Famotidine [Pepcid] 20 mg PO BID 05/07/22 Fenofibrate [Tricor*] 145 mg PO BEDTIME 05/07/22 Ferrous Sulfate [Ferrous Sulfate*] 1 tab PO DAILY 05/07/22 Finasteride [Proscar*] 5 mg PO DAILY 05/07/22 Gabapentin [Neurontin*] 400 mg PO TID 05/07/22 Guaifenesin 400 mg PO TID 05/07/22 Hydralazine HCl [Apresoline] 50 mg PO TID 05/07/22 Ipratropium/Albuterol Sulfate [Iprat-Albut 0.5-3(2.5) mg/3 ml] 1 dose IH Q6HP PRN 05/07/22 Melatonin 10 mg PO BEDTIME 05/07/22 Nifedipine [Nifedipine ER] 90 mg PO DAILY 05/07/22 Tamsulosin [Flomax*] 1 tab PO DAILY 05/07/22 Aripiprazole [Abilify] 10 mg PO DAILY 06/25/22 Baclofen [Lioresal*] 10 mg PO Q12HP 06/25/22 Codeine/APAP [Tylenol #3*] 1 tab PO Q8HP PRN 06/25/22 Med Pass 2.0 120 ml PO TID 06/25/22 Montelukast [Singulair*] 10 mg PO BEDTIME 06/25/22 Omeprazole 20 mg PO DAILY 06/25/22 Atorvastatin Calcium [Lipitor] 40 mg PO BEDTIME tab 06/27/22 Clopidogrel Bisulfate [Plavix*] 75 mg PO DAILY 06/27/22 Folic Acid 1 mg PO DAILY #30 06/27/22 New Medications: Folic Acid 1 mg PO DAILY #30 Physician Discharge Instructions: 1. Please schedule a follow-up appointment with your PCP (Dr. Curran) in 3-5 days - It was unclear if the spot on your brain in the MRI was cancer or not - Please arrange for a repeat MRI of your head in 4-6 weeks to evaluate for possible cancer 2. Please schedule a follow-up appointment with Neurology (Dr. Benson) in 5-7 days Activity: Bedrest Followup: Mabel Curran MD [Primary Care Provider] - Time spent managing pt's care (in minutes): 20
[2022-06-27] MEDS ORDERED: POTASSIUM 25 MEQ EFFERV TAB PO ONE (09:00)
[2022-06-27 09:16] VITALS: BP 130/74; TEMP 97.2
[2022-06-27] MEDS: VITAMIN D 1000 UNIT TAB PO SCH (09:57)
[2022-06-27] MEDS: GABAPENTIN 300 MG CAP PO SCH (09:57)
[2022-06-27] MEDS: ARIPiprazole 5 MG TAB PO SCH (09:57)
[2022-06-27] MEDS: DULOXETINE 30 MG CAP PO SCH (09:58)
[2022-06-27] MEDS: FINASTERIDE 5 MG TAB PO SCH (09:58)
[2022-06-27] MEDS: FERROUS SULFATE 325 MG TAB PO SCH (09:58)
[2022-06-27] MEDS: FOLIC ACID 1 MG TABLET PO SCH (09:58)
[2022-06-27] MEDS: TAMSULOSIN 0.4 MG SR CAP PO SCH (09:59)
[2022-06-27] MEDS: ASPIRIN 81 MG CHEWABLE TABLET PO SCH (09:59)
[2022-06-27] MEDS: ZINC SULFATE 220 MG CAP PO SCH (09:59)
[2022-06-27] MEDS: ASCORBIC ACID 500 MG TABLET PO SCH (09:59)
[2022-06-27] MEDS: CLOPIDOGREL 75 MG TABLET PO SCH (10:00)
[2022-06-27] MEDS: HEPARIN 5000 UNIT/ML 1 ML VIAL SQ SCH (10:00)
--- NOTE | 2022-06-27 10:04 | ECHO ---
HEIGHT: 5 ft 8 in WEIGHT: 166 lb 0 oz DATE OF STUDY: 06/27/[address]: Jens Starks MDMODE: YES DOPPLER: YES COLOR FLOW: YES TDS: NO PORTABLE: YES DEFINITY: NO BUBBLE STUDY: NO DIAGNOSIS: CARDIOEMBOLIC STROKE CARDIAC HISTORY: CATHERIZATION: NO SURGERY: NO PROSTHETIC VALVE: NO PACEMAKER: NO MEASUREMENTS (cm) DIASTOLIC (NORMALS) SYSTOLIC (NORMALS) IVSd 1.1 (0.6-1.2) LA Diam 2.5 (1.9-4.0) LVEF 53% LVIDd 3.8 (3.5-5.7) LVIDs 2.8 (2.0-3.5) %FS 27% LVPWd 1.1 (0.6-1.2) Ao Diam (2.0-3.7) 2 DIMENSIONAL ASSESSMENT: RIGHT ATRIUM: NORMAL LEFT ATRIUM: NORMAL RIGHT VENTRICLE: NORMAL LEFT VENTRICLE: NORMAL TRICUSPID VALVE: NORMAL MITRAL VALVE: NORMAL PULMONIC VALVE: NORMAL AORTIC VALVE: NORMAL PERICARDIAL EFFUSION: NONE AORTIC ROOT: NORMAL LEFT VENTRICULAR WALL MOTION: NORMAL DOPPLER/COLOR FLOW: MILD TRICUSPID REGURGITATION. COMMENTS: MILD TRICUSPID REGURGITATION. NORMAL LEFT VENTRICULAR SIZE AND FUNCTION. NO THROMBUS. NO VEGETATION. TECHNOLOGIST: Greg PAREDES
--- NOTE | 2022-06-30 08:19 | EKG ---
Test Date: 2022-06-25 Test Time: 12:53:30 Credit Associate: MEASUREMENT RESULTS: Intervals: Rate: 78 MS: 134 QRSD: 78 QT: 378 QTc: 430 [place]: P: 67 MS: 134 QRS: 57 T: 50 INTERPRETIVE STATEMENTS: Sinus rhythm with premature atrial complexes Otherwise normal ECG Compared to ECG 06/25/2022 12:52:46 Atrial premature complex(es) now present Electronically Signed On 06-30-22 08:07:33 CDT by Gelacio Acevedo
== END 2022-06-27 13:16 | DRG 65 ==
LOC: ER 12:21 → ERHOLD 15:51 → 2ND 17:50
PROVIDERS: ADMIT Internal Medicine; ATTEND Internal Medicine
DX: I63.9 Cerebral infarction, unspecified (principal); I69.354 Hemiplegia and hemiparesis following cerebral infarction affecting left non-dominant side; G81.91 Hemiplegia, unspecified affecting right dominant side; I13.0 Hypertensive heart and chronic kidney disease with heart failure and stage 1 through stage 4 chronic kidney disease, or unspecified chronic kidney disease; I50.9 Heart failure, unspecified; N18.31 Chronic kidney disease, stage 3a; E78.1 Pure hyperglyceridemia; K21.9 Gastro-esophageal reflux disease without esophagitis; J44.9 Chronic obstructive pulmonary disease, unspecified; I65.22 Occlusion and stenosis of left carotid artery; D50.9 Iron deficiency anemia, unspecified; N40.1 Benign prostatic hyperplasia with lower urinary tract symptoms; G47.00 Insomnia, unspecified; M19.90 Unspecified osteoarthritis, unspecified site; F17.210 Nicotine dependence, cigarettes, uncomplicated; R29.712 NIHSS score 12; Z79.82 Long term (current) use of aspirin; Z79.899 Other long term (current) drug therapy; Z28.311 Partially vaccinated for COVID-19; Z99.3 Dependence on wheelchair; Z79.02 Long term (current) use of antithrombotics/antiplatelets; Z79.52 Long term (current) use of systemic steroids; Z20.822 Contact with and (suspected) exposure to COVID-19
CPT/HCPCS: 36415; 70450; 70544; 70549; 70553; 71045; 80048; 80061; 83036; 84443; 84484; 85025; 87811; 93005; 93306; 97110; 97112; 97161; 99285; A9577; J1644

== ENCOUNTER 2022-07-07 10:06 | Inpatient (IN) | payer OTHER ==
--- OUTSIDE RECORDS SUMMARY | 2022-07-07 10:24 | XMS REPORT | Continuity of Care Document ---
:1955 Author Organization [facility] t Address [address] [place] [address] Care Team Providers Name Role Phone CYN [...] Department ID 2020-06-15 2020-06-22 Inpatient E RUBY [facility] MED [id number] [facility] 20:20:00 15:10:00 , ROSEMIN 2019-04-20 2019-04-20 Appointmen ANA CONNOR Multispecia [id number] [place] 15:45:00 15:45:00 t; HAYES CONNOR lty - Daryl Jones M.D. 2019-04-06 2019-04-06 Appointmen ANA CONNOR [facility] [id number] [place] 16:00:00 16:00:00 t; HAYES CONNOR Orthopedic P hysijulián KOO M.D. Surgery - fifi [address] 1 2018-07-16 2018-07-16 AppointANA Britt [facility] [id number] [place] 15:15:00 15:15:00 t; HAYES CONNOR Phys ici FAYYAZ, M.D. ans M.D. 2017-10-23 2017-10-23 Appointmen ANA CONNOR [facility] [id number] [place] 09:00:00 09:00:00 t; HAYES CONNOR Phys ici FAYYAZ, M.D. ans M.D. 2017-09-16 2017-09-16 Appointmen ANA CONNOR [facility] [id number] [place] 09:30:00 09:30:00 t; HAYES CONNOR Phys ici FAYYAZ, M.D. ans M.D. 2017-06-05 2017-06-05 Appointmen ANA CONNOR [facility] [id number] [place] 08:30:00 08:30:00 t; HAYES CONNOR Phys ici FAYYAZ, M.D. ans M.D. Results This patient has no known results.
[2022-07-07 10:31] LABS: Absolute Lymphocytes (CBC) 1.2 K/uL (0.7-4.9); Hematocrit 44.1 % (39.6-49.0); Lymphocytes % 12.3 % (15.3-44.8); MCV 85.2 fL (80-100); MPV 8.1 fL (7.6-11.3); RBC Red Blood Cell Count 5.18 M/uL (4.33-5.43)
[2022-07-07] MEDS ORDERED: NA CHLORIDE 0.9% 1,000 ML ONE ×2 (10:36→16:22)
[2022-07-07] MEDS ORDERED: D5.45NS W/KCL 20MEQ 1,000 ML IV ONE (10:37)
--- NOTE | 2022-07-07 11:00 | RAD REPORT ---
EXAM DESCRIPTION: CT - Head Brain Wo Cont - 07/07/2022 10:43 am CLINICAL HISTORY: weakness, AMS, recent CVA COMPARISON: Head Brain Wo Cont dated 06/25/2022; MRA Head Wo Cont dated 06/26/2022; MRA Neck W/Wo Cont dated 06/26/2022; Brain W/Wo Cont dated 06/26/2022 TECHNIQUE: All CT scans are performed using dose optimization technique as appropriate and may inclu de automated exposure control or mA/KV adjustment according to patient size. FINDINGS: Sequela of remote large right MCA territory infarct. Subacute insult in the left frontal l obe is similar in configuration.No areas of brain edema or evidence of midline shift. The paranasal sinuses and mastoids are clear. The calvarium is intact. IMPRESSION: No acute intracranial abnormality. Subacute suspected left frontal lobe infarct is unch anged. Large remote right-sided cerebral infarct is unchanged.
--- NOTE | 2022-07-07 11:30 | RAD REPORT ---
EXAM DESCRIPTION: RAD - Chest Single View - 07/07/2022 11:24 am CLINICAL HISTORY: crackles, recent CVA COMPARISON: Chest Single View dated 06/25/2022; Chest Single View dated 05/06/2022 FINDINGS: Lines: None. Lungs: No evidence of edema or pneumonia. Note that the left lung base is partially obscured by the p atient's hand. Pleural: No significant pleural effusions or pneumothorax. Cardiac: The heart size is within normal limits. Mediastinum: Within normal limits. Bones: No acute fractures. Other: None IMPRESSION: No acute cardiopulmonary disease.
[2022-07-07 11:50] LABS: Blood Morphology Comment NOT SEEN (NOT SEEN); Platelet Estimate ADEQ; White Blood Cell Scan OK (OK)
--- NOTE | 2022-07-07 11:54 | EDPHYS ---
Physician Documentation [facility] Name: Yovanny Post Age: 66 yrs Sex: Male : 1955 Arrival Date: 07/07/2022 Time: 10:09 Bed 14 Private MD: ED Physician Kyree Rg HPI: 07/07 10:16 This 66 yrs old Male presents to ER via Unassigned with complaints of Altered Mental rn Status - failure to thrive reported by EM patient has been declining over the past few weeks-hx of recent CVA. 10:16 The patient presents with decreased mental status, decreased responsiveness. Onset: The rn symptoms/episode began/occurred 1 week(s) ago. Possible causes: unknown. Associated signs and symptoms: Pertinent positives: weakness, Pertinent negatives: abdominal pain, chest pain. Current symptoms: In the emergency department the patient's symptoms are unchanged from the initial presentation. The patient has experienced a previous episode. The patient has been recently been admitted at [facility]. EMS reports recent admission for CVA, long term sent him back for failure to thrive and hasn't eaten and not drinking since Thursday. No fever per report. Was admitted for acute CVA at that time that left his right side weak. EMS reports usually more "lively" and talkative. . Historical: - Allergies: 10:22 No Known Allergies; jg9 - PMHx: 10:22 Depression; GERD; insomnia; neuropathy; osteoarthritis; prostate problems; jg9 rhabdomyolysis; stroke; UTI; Alcoholism; Congestive heart failure; hemiplegia/hemiparesis; muscle wasting/atrophy; carotid aretery stenosis/occlusion; ataxia; gait disturbance; - Immunization history:: Adult Immunizations unknown. - Social history:: Smoking status: Patient denies any tobacco usage or history of. - Family history:: not pertinent. - Hospitalizations: : No recent hospitalization is reported. ROS: 10:16 Constitutional: Negative for fever, chills, and weight loss, Eyes: Negative for injury, rn pain, redness, and discharge, Neck: Negative for injury, pain, and swelling, Cardiovascular: Negative for chest pain, palpitations, and edema, Respiratory: Negative for shortness of breath, cough, wheezing, and pleuritic chest pain, Abdomen/GI: Negative for abdominal pain, nausea, vomiting, diarrhea, and constipation, Back: Negative for injury and pain, MS/Extremity: Negative for injury and deformity, Skin: Negative for injury, rash, and discoloration, Neuro: Negative for headache, and seizure Exam: 10:16 Constitutional: This is a well developed, well nourished patient who is awake, slow to rn respond, answers to yes and no questions Head/Face: Normocephalic, atraumatic. Eyes: Periorbital areas with no swelling, redness, or edema. ENT: very dry MM Cardiovascular: Tachycardic, regular. No pulse deficits. Respiratory: + tachypnea with bibasilar crackles, no retractions. Abdomen/GI: Soft, non-tender Skin: Warm, dry MS/ Extremity: Pulses equal, no cyanosis. Diminished pulses distally. Neuro: Awake, slow to respond, answers to yes and no questions, no purposeful movement to either extremity. Does not withdraw from pain. 10:37 ECG was reviewed by the Attending Physician. rn Vital Signs: 10:11 BP 134 / 89; Pulse 107; Resp 32; Temp 99.9; Pulse Ox 94% on 2 lpm NC; Weight 75.3 kg; mb7 Height 5 ft. 8 in. (172.72 cm); 10:18 BP 134 / 89; Pulse 102; Resp 24 S; Temp 98.5(O); Pulse Ox 94% on R/A; Weight 72.57 kg jg9 (R); Height 5 ft. 8 in. (172.72 cm) (R); Pain 0/10; 11:45 BP 140 / 97; Pulse 90; Resp 31 S; Pulse Ox 96% on 2 lpm NC; jg9 12:45 BP 134 / 87; Pulse 77; Resp 24 S; Pulse Ox 93% on 2 lpm NC; jg9 13:15 BP 170 / 98; Pulse 93; Resp 23 S; Pulse Ox 95% on 2 lpm NC; jg9 13:45 BP 162 / 98; Pulse 92; Resp 35 S; Pulse Ox 95% on 2 lpm NC; jg9 14:45 BP 142 / 76; Pulse 86; Resp 29; Pulse Ox 95% on 2 lpm NC; jg9 15:45 BP 129 / 86; Pulse 79; Resp 28 S; Pulse Ox 97% on R/A; jg9 10:18 Body Mass Index 24.33 (72.57 kg, 172.72 cm) jg9 MDM: 10:09 Patient medically screened. rn 11:53 Differential Diagnosis: CVA, electrolyte abnormality, hypoglycemia, sepsis, UTI, volume rn depletion. Data reviewed: vital signs, nurses notes, lab test result(s), EKG, radiologic studies, CT scan, plain films, and as a result, I will admit patient. Counseling: I had a detailed discussion with the patient and/or guardian regarding: the historical points, exam findings, and any diagnostic results supporting the discharge/admit diagnosis, lab results, radiology results, the need for further work-up and treatment in the hospital. Response to treatment: There is no appreciated change of the patient's symptoms at this time, and as a result, I will admit patient. Admission orders: after a detailed discussion of the patient's condition and case, the admit orders are written by me. 07/07 10:14 Order name: Blood Culture Adult (2) rn 07/07 10:14 Order name: CBC with Diff; Complete Time: 11:52 rn 07/07 10:14 Order name: CMP; Complete Time: 12:59 rn 07/07 10:14 Order name: Lactate; Complete Time: 12:59 rn 07/07 10:14 Order name: Protime (+inr); Complete Time: 12:59 rn 07/07 10:14 Order name: Ptt, Activated; Complete Time: 12:59 rn 07/07 10:14 Order name: Urine Culture rn 07/07 10:14 Order name: Urine Microscopic Only; Complete Time: 12:59 rn 07/07 10:14 Order name: CK; Complete Time: 12:59 rn 07/07 10:46 Order name: Troponin High Sensitivity; Complete Time: 12:59 bd 07/07 11:51 Order name: CBC Smear Scan; Complete Time: 11:52 EDMS 07/07 12:32 Order name: Urine Dipstick-Ancillary; Complete Time: 12:59 EDMS 07/07 14:30 Order name: SARS RAPID; Complete Time: 16:29 rn 07/07 17:41 Order name: Protime (+INR); Complete Time: 21:27 EDMS 07/07 10:14 Order name: CT Head Brain wo Cont; Complete Time: 11:37 rn 07/07 10:14 Order name: XRAY Chest (1 view); Complete Time: 11:37 rn 07/07 17:53 Order name: NT PRO-BNP; Complete Time: 21: [facility] 07/07 18:02 Order name: Liver (Hepatic) Function; Complete Time: 21:27 [facility] 07/07 18:02 Order name: Phosphorus; Complete Time: 21:27 [facility] 07/07 18:02 Order name: Creatine Phosphokinase; Complete Time: : [facility] 07/07 18:02 Order name: T4 Free; Complete Time: 21: [facility] 07/07 18:02 Order name: Magnesium; Complete Time: : [facility] 07/07 18:02 Order name: Thyroid Stimulating Hormone; Complete Time: : [facility] 07/07 18:05 Order name: Troponin High Sensitivity; Complete Time: : [facility] 07/07 19:17 Order name: Hemoglobin A1c; Complete Time: : [facility] 07/07 23:24 Order name: Troponin High Sensitivity; Complete Time: 23:39 [facility] 07/08 02:53 Order name: CBC with Automated Diff; Complete Time: 04:05 [facility] 07/08 03:09 Order name: Basic Metabolic Panel; Complete Time: 04:05 [facility] 07/08 03:09 Order name: Creatine Phosphokinase; Complete Time: 04:05 [facility] 07/08 12:58 Order name: Gram Stain--Anaerobic Bottle [facility] 07/07 10:14 Order name: IV Start; Complete Time: 11:15 07/07 10:14 Order name: Cardiac monitoring; Complete Time: 10: 07/07 10:14 Order name: EKG - Nurse/Tech; Complete Time: 10:31 rn 07/07 10:14 Order name: IV Saline Lock - Large Bore; Complete Time: 11:20 rn 07/07 10:14 Order name: Labs collected and sent; Complete Time: 11: rn 07/07 10:14 Order name: O2 Per Protocol; Complete Time: 10: rn 07/07 10:14 Order name: O2 Sat Monitoring; Complete Time: 10:15 rn 07/07 10:14 Order name: Urine Dipstick-Ancillary (obtain specimen); Complete Time: 13:17 rn 07/07 10:36 Order name: Labs - recollect needed: recollect all labs; Complete Time: 11:52 bd 07/07 14:27 Order name: NPO; Complete Time: 14:28 jg9 EC:37 Rate is 97 beats/min. Rhythm is regular. QRS [place] is Normal. SD interval is normal. QRS rn interval is normal. QT interval is normal. No Q waves. T waves are Normal. ST Segment is depressed in leads II, III, aVF. Clinical impression: NSR w/ Non-specific ST/T Changes. Interpreted by me. Reviewed by me. Administered Medications: 16:09 Discontinued: D5-1/2 NS with KCl 20 mEq/L 1000 ml IV at 100 ml/hr continuous jg9 11:02 Drug: NS 0.9% 1000 ml Route: IV; Rate: 1000 ml; Site: right wrist; ap3 13:28 Follow up: IV Status: Completed infusion; IV Intake: 1000ml jg9 13:28 Drug: D5-1/2 NS with KCl 20 mEq/L 1000 ml Route: IV; Rate: 100 ml/hr; Site: right wrist;jg9 16:09 Follow up: IV Intake: 250ml jg9 16:10 Follow up: IV Status: Completed infusion jg9 Disposition Summary: 07/07/22 11:54 Hospitalization Ordered Hospitalization Status: Inpatient Admission rn Provider: Jens Starks rn Condition: Stable rn Problem: an ongoing problem rn Symptoms: have worsened rn Bed/Room Type: Standard rn Location: [facility] ER HOLD(07/07/22 16:00) jl7 Room Assignment: ERHOLD-(07/07/22 16:00) jl7 Diagnosis - Altered mental status, unspecified rn - Muscle weakness (generalized) rn - Adult failure to thrive rn - Dehydration rn Forms: - Medication Reconciliation Form rn - SBAR form rn Signatures: Dispatcher [employer] EDNora Wood Roman, MD MD rn Leal, Jahala RN TRICE jl7 Jessica Wan RN RN ap3 Gilmore, Jennifer RN RN jg9 Coleen Urbina PA PA sb3 Corrections: (The following items were deleted from the chart) 11:20 10:14 Accucheck ordered. trice [email or web address] 16:00 11:54 Telemetry/MedSurg (Inpatient) trice corley 16:00 11:54 rn [email or web address]
--- NOTE | 2022-07-07 11:54 | ER ---
Nurse's Notes [facility] Name: Yovanny Post Age: 66 yrs Sex: Male : 1955 Arrival Date: 07/07/2022 Time: 10:09 Bed 14 Private MD: Diagnosis: Altered mental status, unspecified;Muscle weakness (generalized);Adult failure to thrive;Dehydration Presentation: 07/07 10:13 Chief complaint: EMS states: [facility] jg9 for worsening mentation, EMS report [facility], patient is a full code refusing DNR and hospice-patient refused all weekend to come to the hospital and today he agreed but has not voiced any complaints. Patient asked why he was here at which time he stated, "i don't know", patient denied any discomfort or illness. Coronavirus screen: Vaccine status: Patient reports being unvaccinated. Ebola Screen: Patient negative for fever greater than or equal to 101.5 degrees Fahrenheit, and additional compatible Ebola Virus Disease symptoms Patient denies exposure to infectious person. Patient denies travel to an Ebola-affected area in the 21 days before illness onset. Initial Sepsis Screen: Does the patient meet any 2 criteria? Altered Mental Status. HR > 90 bpm. Does the patient have a suspected source of infection? No. Patient's initial sepsis screen is negative. Risk Assessment: Do you want to hurt yourself or someone else? Patient reports no desire to harm self or others. Onset of symptoms is unknown. 10:13 Method Of Arrival: EMS: [facility] jg9 10:13 Acuity: SONNY 2 jg9 Triage Assessment: 10:15 General: Appears in no apparent distress. Behavior is calm, cooperative. Pain: Denies jg9 pain. EENT: No deficits noted. Neuro: Level of Consciousness is awake, alert, obeys commands, Oriented to person, place. Cardiovascular: Rhythm is sinus rhythm. Respiratory: No deficits noted. GI: No deficits noted. : No deficits noted. Derm: Decubitus located on right left heel(s). Musculoskeletal: contracted upper and lower extremities. Historical: - Allergies: 10:22 No Known Allergies; jg9 - PMHx: 10:22 Depression; GERD; insomnia; neuropathy; osteoarthritis; prostate problems; jg9 rhabdomyolysis; stroke; UTI; Alcoholism; Congestive heart failure; hemiplegia/hemiparesis; muscle wasting/atrophy; carotid aretery stenosis/occlusion; ataxia; gait disturbance; - Immunization history:: Adult Immunizations unknown. - Social history:: Smoking status: Patient denies any tobacco usage or history of. - Family history:: not pertinent. - Hospitalizations: : No recent hospitalization is reported. Screenin:22 Abuse screen: Denies threats or abuse. Denies injuries from another. Nutritional jg9 screening: No deficits noted. Tuberculosis screening: No symptoms or risk factors identified. Fall Risk None identified. Assessment: 12:00 Reassessment: Patient appears in no apparent distress at this time. No changes from jg9 previously documented assessment. Patient and/or family updated on plan of care and expected duration. Pain level reassessed. Patient is alert, oriented x 3, equal unlabored respirations, skin warm/dry/pink. 14:00 Reassessment: patient asking for water-this nurse provided some however patient was jg9 coughing with each sip even with sitting up at 90 degree angle-thick it will be added and this nurse will attempt again later. 14:23 Reassessment: Patient able to tolerate thickened water better but still has a cough so jg9 at this time patient will be NPO until further evaluation. 15:00 Reassessment: Patient and/or family updated on plan of care and expected duration. Pain jg9 level reassessed. Patient is alert, oriented x 3, equal unlabored respirations, skin warm/dry/pink. patient oxygen dropping to 88 on 2L, remained in 80's on 3L, currently on 4L 93. Vital Signs: 10:11 BP 134 / 89; Pulse 107; Resp 32; Temp 99.9; Pulse Ox 94% on 2 lpm NC; Weight 75.3 kg; mb7 Height 5 ft. 8 in. (172.72 cm); 10:18 BP 134 / 89; Pulse 102; Resp 24 S; Temp 98.5(O); Pulse Ox 94% on R/A; Weight 72.57 kg jg9 (R); Height 5 ft. 8 in. (172.72 cm) (R); Pain 0/10; 11:45 BP 140 / 97; Pulse 90; Resp 31 S; Pulse Ox 96% on 2 lpm NC; jg9 12:45 BP 134 / 87; Pulse 77; Resp 24 S; Pulse Ox 93% on 2 lpm NC; jg9 13:15 BP 170 / 98; Pulse 93; Resp 23 S; Pulse Ox 95% on 2 lpm NC; jg9 13:45 BP 162 / 98; Pulse 92; Resp 35 S; Pulse Ox 95% on 2 lpm NC; jg9 14:45 BP 142 / 76; Pulse 86; Resp 29; Pulse Ox 95% on 2 lpm NC; jg9 15:45 BP 129 / 86; Pulse 79; Resp 28 S; Pulse Ox 97% on R/A; jg9 10:18 Body Mass Index 24.33 (72.57 kg, 172.72 cm) jg9 ED Course: 10:09 Patient arrived in ED. bd 10:09 Kyree Rg MD is Attending Physician. rn 10:11 Elin Shaver, RN is Primary Nurse. jg9 10:12 Placed in gown. Bed in low position. Call light in reach. Side rails up X 1. Door mb7 closed. Noise minimized. Client placed on continuous cardiac and pulse oximetry monitoring. NIBP monitoring applied. jewel grinder on. 10:18 Triage completed. jg9 10:26 Arm band placed on right wrist. jg9 10:31 EKG done, by ED staff, reviewed by Kyree Rg MD. mb7 10:45 CT Head Brain wo Cont In Process Unspecified. EDMS 11:00 Maintain EMS IV. Dressing intact. Site clean \\T\\ dry. Gauge \\T\\ site: 20 r ac. jg 9 11:26 XRAY Chest (1 view) In Process Unspecified. EDMS 11:45 Inserted saline lock: 22 gauge in right hand, using aseptic technique. Blood collected. jg9 11:53 Jens Starks MD is Hospitalizing Provider. rn 16:07 No provider procedures requiring assistance completed. jg9 16:07 Patient admitted, IV remains in place. jg9 19:11 Primary Nurse role handed off by Elin Shaver, RN mw2 07/08 07:14 Panfilo Cabrera, RN is Primary Nurse. bp Administered Medications: 07/07 16:09 Discontinued: D5-1/2 NS with KCl 20 mEq/L 1000 ml IV at 100 ml/hr continuous jg9 11:02 Drug: NS 0.9% 1000 ml Route: IV; Rate: 1000 ml; Site: right wrist; ap3 13:28 Follow up: IV Status: Completed infusion; IV Intake: 1000ml jg9 13:28 Drug: D5-1/2 NS with KCl 20 mEq/L 1000 ml Route: IV; Rate: 100 ml/hr; Site: right wrist;jg9 16:09 Follow up: IV Intake: 250ml jg9 16:10 Follow up: IV Status: Completed infusion jg9 Medication: 16:07 VIS not applicable for this client. jg9 Intake: 13:28 IV: 1000ml; Total: 1000ml. jg9 16:09 IV: 250ml; Total: 1250ml. jg9 Outcome: 11:54 Decision to Hospitalize by Provider. rn 16:07 Admitted to ER Hold. Please see [facility] for further documentation. jg9 16:07 Condition: stable 07/09 15:55 Patient left the ED. kb3 Signatures: Dispatcher [employer] EDMS Nora Miller Roman, MD MD rn Peltier, Brian, RN RN Jsesica Aponte RN RN ap3 Yuly Dotson 2 Khadijah Gould mb7 Elin Shaver RN RN jg9 Alka Nuñez, RN RN kb3 Corrections: (The following items were deleted from the chart) 07/07 10:21 10:13 Chief complaint: EMS states: [facility] jg9 times for worsening mentation, EMS report patient has been refusing care at the NH, patient is a full code refusing DNR and hospice-patient refused all weekend to come to the hospital and today he agreed but has not voiced any complaints. jg9 11:15 10:13 Initial Sepsis Screen: Does the patient meet any 2 criteria? Altered Mental jg9 Status. Does the patient have a suspected source of infection? No. Patient's initial sepsis screen is negative. jg9 13:28 11:45 BP 140 / 97; Pulse 90bpm; Resp 31bpm; Spontaneous; Pulse Ox 96% RA; jg9 jg9 13:28 13:15 BP 170 / 98; Pulse 93bpm; Resp 23bpm; Spontaneous; Pulse Ox 95% RA; jg9 jg9
[2022-07-07 12:19] LABS: Protime INR 1.12
[2022-07-07 12:30] LABS: Albumin 3.5 g/dL (3.4-5.0); Bilirubin Total 0.6 mg/dL (0.2-1.0); Protein, Total 8.4 g/dL (6.4-8.2)
[2022-07-07 12:32] LABS: Urine Blood Negative (Negative); Urine Glucose Negative (Negative); Urine Protein 1+ (Negative); Urine Specific Gravity >=1.030 (1.005-1.030); Urine pH 5.5 (5.0-7.0)
[2022-07-07 12:56] LABS: Urine Bacteria None Seen /HPF (<20); Urine RBC None Seen /HPF (None Seen)
[2022-07-07] MEDS ORDERED: ACETAMINOPHEN 500 MG TAB PO PRN (14:45)
[2022-07-07] MEDS ORDERED: ONDANSETRON 4 MG/2 ML VIAL IV PRN (14:45)
[2022-07-07] MEDS ORDERED: HOME MED 1 EA UNK (Ipratropium/Albuterol Sulfate [Iprat-Albut 0.5-3(2.5) Mg/3 Ml] 3 ML Amp IH PRN (14:48)
[2022-07-07] MEDS ORDERED: HYDROCODONE/APAP 5/325 MG TAB PO PRN (14:55)
[2022-07-07] MEDS ORDERED: NA CHLORIDE 0.9% 1,000 ML IV SCH (15:00)
--- NOTE | 2022-07-07 15:05 | P.HP ---
Certification for Inpatient With expected LOS: >2 Midnights Patient will require the following post-hospital care: Correction Practitioner: I am a practitioner with admitting privileges, knowledge of patient current condition, hospital course, and medical plan of care. Services: Services provided to patient in accordance with Admission requirements found in Title 42 Section 412.3 of the Code of Federal Regulations <Moncho Atkinson - Last Filed: 07/07/22 17:13> Patient History Date of Service: 07/07/22 Reason for admission: AMS History of Present Illness: Patient is a 66-year-old male with a past medical history significant for depression, anxiety disorder, GERD, insomnia, neuropathy, osteoarthritis, BPH, insomnia, CODY,CVA, hypertension, CKD, COPD who presents with complaint of altered mental status. Patient was seen to the hospital 12 days ago for CVA. Patient currently confused and not responding to questions. Per medical records, patient is a resident of a halfway and patient has been noted to be declining since being discharged from the hospital. Patient has not been eating or drinking for the past 3 days. Patient noted to be weak and lethargic. No other signs and symptoms reported. Symptoms are aggravated or relieved by nothing. Patient was brought to the hospital for medical evaluation. - Past Medical/Surgical History Diabetic: No -: Hypertension -: CVA with L sided deficits -: COPD -: CKD3 -: CHF (unknown EF) -: GERD -: UTI Past Surgical History: Reviewed- Non-Contributory Psychosocial/ Personal History: Patient is . He lives at [place]. - Family History Father -: Cancer Mother -: Cancer - Social History Alcohol use: Yes CD- Drugs: No Caffeine use: Yes <Moncho Atkinson - Last Filed: 07/07/22 17:13> Date of Service: 07/07/22 <Jens Starks - Last Filed: 07/07/22 19:10> Allergies No Known Allergies Allergy (Verified 07/07/22 14:53) Home Medications: Aspirin 81 mg PO DAILY 05/07/22 Cyclobenzaprine HCl [Flexeril] 1 tab PO BEDTIME 05/07/22 Duloxetine HCl [Cymbalta] 60 mg PO BID 05/07/22 Famotidine [Pepcid] 20 mg PO BID 05/07/22 Fenofibrate [Tricor*] 145 mg PO BEDTIME 05/07/22 Nifedipine [Nifedipine ER] 90 mg PO DAILY 05/07/22 Tamsulosin [Flomax*] 1 tab PO DAILY 05/07/22 Baclofen [Lioresal*] 10 mg PO Q12HP 06/25/22 Codeine/APAP [Tylenol #3*] 1 tab PO Q6HR 06/25/22 Montelukast [Singulair*] 10 mg PO BEDTIME 06/25/22 Omeprazole 20 mg PO DAILY 06/25/22 Atorvastatin Calcium [Lipitor] 40 mg PO BEDTIME tab 06/27/22 Clopidogrel Bisulfate [Plavix*] 75 mg PO DAILY 06/27/22 Benzonatate 1 tab PO Q8HR 07/07/22 Diphenhydramine [Benadryl*] 1 tab PO BEDTIME 07/07/22 Review of Systems is unable to be obtained (Patient is confused and does not respond to verbal commands.) <Moncho Atkinson - Last Filed: 07/07/22 17:13> Physical Examination - Physical Exam General: Alert, Confused, Unresponsive HEENT: Atraumatic, Normocephalic, PERRLA Neck: Supple, 2+ carotid pulse no bruit, JVD not distended Respiratory: Clear to auscultation bilaterally, Normal air movement Cardiovascular: No edema, Normal pulses, Regular rate/rhythm Gastrointestinal: Normal bowel sounds, Soft and benign Musculoskeletal: No clubbing, No swelling, No contractures Integumentary: No rashes, No breakdown, No significant lesion Neurological: Normal tone, Sensation intact Lymphatics: No axilla or inguinal lymphadenopathy - Studies Laboratory Data (last 24 hrs) 07/07/22 11:50: PT 12.4, INR 1.12, APTT 31.1 07/07/22 11:50: Sodium 149 H, Potassium 4.0, BUN 54 H, Creatinine 1.83 H, Glucose 156 H, Total Bilirubin 0.6, AST 45 H, ALT 24, Alkaline Phosphatase 50 07/07/22 10:22: WBC 9.60, Hgb 14.2, Hct 44.1, Plt Count 450 H <Moncho Atkinson Last Filed: 07/07/22 17:13> - Studies Laboratory Data (last 24 hrs) 07/07/22 11:50: PT 12.4, INR 1.12, APTT 31.1 07/07/22 11:50: Sodium 149 H, Potassium 4.0, BUN 54 H, Creatinine 1.83 H, Glucose 156 H, Total Bilirubin 0.6, AST 45 H, ALT 24, Alkaline Phosphatase 50 07/07/22 10:22: WBC 9.60, Hgb 14.2, Hct 44.1, Plt Count 450 H <Jens Starks - Last Filed: 07/07/22 19:10> Assessment and Plan - Plan -- Acute encephalopathy. Unclear etiology. CT head unremarkable for any acute intracranial normality. Blood cultures pending. UA negative. Continue supportive care. --Rhabdomyolysis. Continue IV hydration. Will Reassess CPK levels in a.m. --TIMMY on CKD 3A. Likely prerenal. Secondary to dehydration. Continue IV hydration. We will continue to monitor renal functions. -History of CVA. Continue aspirin, Plavix and statin. PT eval and treat. --Hypertension. Stable. Continue home medications. -- GERD. Continue home medication. --Depression\anxiety disorder\Insomnia. Continue home medication. --Osteoarthritis. We will manage pain with current pain medication regimen. --BPH. Continue home medication. --CODY. Continue ferrous sulfate. --Elevated troponin. Likely secondary to demand ischemia. Will trend troponin levels. Telemetry to monitor for any significant arrhythmia --COPD. Stable. Continue home medications. --Poor p.o. intake. Sous Chef consulted. We will await further recommendations. -- DVT prophylaxis with heparin subQ. Discharge Plan: Home Plan to discharge in: Greater than 2 days - Advance Directives Does patient have a Living Will: No Does patient have a Durable POA for Healthcare: No - Code Status/Comfort Care Code Status Assessed: Yes Code Status: Full Code Physician Review: Patient Assessed, Agree with Above Assessment and Plan Critical Care: No <Moncho Atkinson - Last Filed: 07/07/22 17:13> Physician Review: Patient Assessed, Agree with Above Assessment and Plan Physician Review Additional Text: Agree, with following addendum: Discontinue normal saline given hypernatremia. Will start on D5W and repeat BMP in the morning. Trend troponin. Continue aspirin, statin, clopidogrel. Cardiology consulted - recs appreciated. Jens Starks M.D. <Jens Starks - Last Filed: 07/07/22 19:10>
[2022-07-07 15:17] LABS: SARS-CoV-2 Antigen Rapid Res Negative (Negative)
[2022-07-07] MEDS ORDERED: ALBUTEROL 2.5 MG/3 ML NEB SOL IH PRN (15:18)
[2022-07-07] MEDS ORDERED: IPRATROPIUM BROM 0.5MG/2.5ML IH PRN (15:18)
[2022-07-07] MEDS: FAMOTIDINE 20 MG TAB PO SCH (16:00)
[2022-07-07 17:40] LABS: Protime INR 1.14
[2022-07-07 17:57] LABS: Albumin 3.2 g/dL (3.4-5.0); Bilirubin Direct 0.3 mg/dL (0-0.2); Bilirubin Total 0.6 mg/dL (0.2-1.0); Magnesium 2.2 mg/dL (1.8-2.4); Phosphorus 3.2 mg/dL (2.5-4.9); Protein, Total 7.5 g/dL (6.4-8.2); Thyroid Stimulating Hormone 0.5 uIU/mL (0.360-3.740)
[2022-07-07] MEDS: D5W 1,000 ML IV SCH (20:00)
[2022-07-07] MEDS ORDERED: D5W 1,000 ML IV ONE (20:40)
[2022-07-07] MEDS ORDERED: FENOFIBRATE 160 MG TAB PO SCH (21:00)
[2022-07-07] MEDS: GUAIFENESIN 400 MG PO SCH (21:00)
[2022-07-07] MEDS: MED PASS PO SCH (21:00)
[2022-07-07] MEDS ORDERED: MELATONIN 5 MG TABLET PO SCH (21:00)
[2022-07-07] MEDS ORDERED: HYDRALAZINE HCL 25 MG TABLET PO SCH (21:00)
[2022-07-07] MEDS ORDERED: MONTELUKAST 10 MG TAB PO SCH (21:00)
[2022-07-07] MEDS ORDERED: HOME MED 1 EA UNK (Hydralazine Hcl [Apresoline] 50 MG Tablet) PO SCH (21:00)
[2022-07-07] MEDS ORDERED: ATORVASTATIN 40 MG TAB PO SCH (21:00)
[2022-07-08 02:52] LABS: Absolute Lymphocytes (CBC) 1.2 K/uL (0.7-4.9); Hematocrit 40.6 % (39.6-49.0); Lymphocytes % 14.1 % (15.3-44.8); MCV 86.3 fL (80-100); MPV 8.3 fL (7.6-11.3); RBC Red Blood Cell Count 4.71 M/uL (4.33-5.43)
[2022-07-08 02:55] LABS: Potassium 3.7 mmol/L (3.5-5.1)
[2022-07-08] MEDS ORDERED: KCL 20 MEQ/100 mL IVPB 100 ML IV ONE (05:00)
[2022-07-08] MEDS ORDERED: KCL 20 MEQ/100 mL IVPB 20 MEQ/100 ML BAG IV SCH (06:00)
--- NOTE | 2022-07-08 08:16 | EKG ---
Test Date: 2022-07-07 Test Time: 10:32:32 [employer] Extension Worker: MB MEASUREMENT RESULTS: Intervals: Rate: 97 AK: 114 QRSD: 72 QT: 372 QTc: 472 [place]: P: 82 AK: 114 QRS: 81 T: 31 INTERPRETIVE STATEMENTS: Normal sinus rhythm Right atrial enlargement Septal infarct, age undetermined Marked ST abnormality, possible inferior subendocardial injury Abnormal ECG Compared to ECG 06/25/2022 12:53:30 Atrial abnormality now present Myocardial infarct finding now present ST (T wave) deviation now present Atrial premature complex(es) no longer present Electronically Signed On 07-08-22 08:12:22 CDT by Gelacio Acevedo
[2022-07-08] MEDS: MED PASS PO SCH ×2 (09:00→14:00)
[2022-07-08] MEDS ORDERED: FERROUS SULFATE 325 MG TAB PO SCH (09:00)
[2022-07-08] MEDS ORDERED: NIFEDIPINE XL 90 MG TABLET PO SCH (09:00)
[2022-07-08] MEDS ORDERED: FOLIC ACID 1 MG TABLET PO SCH (09:00)
[2022-07-08] MEDS: FAMOTIDINE 20 MG TAB PO SCH (09:00)
[2022-07-08] MEDS ORDERED: TAMSULOSIN 0.4 MG SR CAP PO SCH (09:00)
[2022-07-08] MEDS ORDERED: CLOPIDOGREL 75 MG TABLET PO SCH (09:00)
[2022-07-08] MEDS ORDERED: ASPIRIN 81 MG CHEWABLE TABLET PO SCH (09:00)
[2022-07-08] MEDS ORDERED: HOME MED 1 EA UNK (Nifedipine [Nifedipine Er] 90 MG Tablet.Er) PO SCH (09:00)
[2022-07-08] MEDS: GUAIFENESIN 400 MG PO SCH ×2 (09:00→14:00)
[2022-07-08] MEDS ORDERED: FINASTERIDE 5 MG TAB PO SCH (09:00)
[2022-07-08] MEDS ORDERED: D5W 1,000 ML IV ONE (11:13)
[2022-07-08 15:18] VITALS: BMI 24.3
[2022-07-08] MEDS: D5W 1,000 ML IV SCH (16:00)
[2022-07-08] MEDS ORDERED: HYDROMORPHONE HCL 1 MG/ML INJ IV PRN (18:07)
[2022-07-08] MEDS ORDERED: PROMETHAZINE INJ 25 MG/ML AMP IV PRN (18:07)
--- NOTE | 2022-07-08 18:16 | P.PN ---
Subjective Date of Service: 07/08/22 Chief Complaint: AMS Subjective: No new changes Remains unresponsive. He does open his eyes today, but is not communicating with me whatsoever. He is minimally responsive to painful stimuli. Review of Systems is unable to be obtained Physical Examination - Vital Signs Temperature: 99.8 F Blood Pressure: 137/86 Pulse: 90 Respirations: 26 Pulse Ox (%): 93 - Physical Exam General: Unresponsive HEENT: Atraumatic, Mucous membr. moist/pink, Sclerae nonicteric Neck: Supple, JVD not distended Respiratory: Normal air movement, Diminished Cardiovascular: No edema, Regular rate/rhythm, Normal S1 S2, No gallops, No rubs, No murmurs Gastrointestinal: Normal bowel sounds, Soft and benign, Non-distended, No t enderness, No rebound, No guarding Musculoskeletal: No clubbing Integumentary: No rashes Neurological: Other (unable to assess given mental status) - Studies Microbiology Data (last 24 hrs): 07/07/22 11:50 Blood - Blood Gram Stain - Final Assessment And Plan - Plan # Failure to Thrive and Decreased Responsiveness # Subacute Left Frontoparietal Cerebrovascular Accident # History of Large Right MCA Cerebrovascular Accident with Residual Left-Sided Deficits # Presumed Chronically Occluded Right Internal Carotid Artery # Moderate Left Proximal Internal Carotid Artery Stenosis # Chronic Kidney Disease Stage III # Hypertension # Iron-Deficiency Anemia # Chronic Obstructive Pulmonary Disease # Benign Prostatic Hyperplasia # Depression/Anxiety # Gastroesophageal Reflux Disease # Osteoarthritis I had an extensive discussion with his sister, Ms. Iwona Linares, regarding his clinical presentation and hospital course. She states that his [facility] paperwork has lapsed and he does not have a does not [facility]. She states that he does not have a spouse, children, or living parents to serve as decision- makers. She states that his next of kin only includes herself, his brother Mr. Houston Post, and his other brother Mr. Reggie Post. Ms. Bustillo states that she has been in close contact with her 2 brothers and they are all in agreement. She states that Mr. Yovanny Post would never want to have a feeding tube or any artificial life support. She states that he currently has a poor quality of life and has mentioned to her multiple times that, should he be in such a situation as he is now, that he would prefer to be comfortable and enroll in hospice services. She states that her other 2 brothers agree with this and believe that it is most consistent with his wishes. She also states that he would wish to be a DNAR, so this code status was changed in the EMR. We are unable to arrange for hospice at this hour. I have spoken with our telehealth case manager, Ms. Pau Chavira, who will arrange for hospice and discharge back to his home at [place], hopefully for tomorrow morning. For now, he has been switched to comfort care per Ms. LopezIwona's request. Jens Starks M.D. Discharge Plan: Intermediate Plan to discharge in: 24 Hours - Code Status/Comfort Care Code Status Assessed: Yes Code Status: Do Not Attempt Resuscitat Comfort Measures: Hospice Care Physician Review: Patient Assessed, Agree with Above Assessment and Plan Time Spent Managing PTS Care (In Minutes): 40
[2022-07-08] MEDS ORDERED: ONDANSETRON 4 MG/2 ML VIAL ONE (20:47)
[2022-07-08] MEDS ORDERED: HYDROMORPHONE HCL 1 MG/ML INJ ONE (20:47)
--- NOTE | 2022-07-09 11:53 | P.DS ---
Admission Date: 07/07/22 Discharge Date: 07/09/22 Disposition: HOSPICE-MEDICAL FACILITY Discharge Condition: FAIR Reason for Admission: [facility] Hospital Course: DIAGNOSES: # Failure to Thrive and Decreased Responsiveness # Subacute Left Frontoparietal Cerebrovascular Accident # History of Large Right MCA Cerebrovascular Accident with Residual Left-Sided Deficits # Presumed Chronically Occluded Right Internal Carotid Artery # Moderate Left Proximal Internal Carotid Artery Stenosis # Chronic Kidney Disease Stage III # Hypertension # Iron-Deficiency Anemia # Chronic Obstructive Pulmonary Disease # Benign Prostatic Hyperplasia # Depression/Anxiety # Gastroesophageal Reflux Disease # Osteoarthritis HOSPITAL COURSE: Mr. Yovanny Post is a 66 year old male with a past medical history significant for multiple cerebrovascular accidents with significant residual neurologic deficits, moderate left proximal no internal carotid artery stenosis, chronic kidney disease stage III, hypertension, chronic obstructive pulmonary disease, and benign prostatic hyperplasia who was admitted to the [facility] on 07/07/2022 for altered mental status. [facility] and was sent to the emergency department because he was becoming less responsive and not eating for 4-5 days. Upon further evaluation, he was less responsive than his prior admission and did not appear to be moving his extremities well. I had a detailed discussion with his sister, Ms. Iwona Linares, regarding his clinical presentation, hospital course, and need for nutrition. She stated that his [employer] paperwork had lapsed and he does not have a does not [employer]. She states that he does not have a spouse, children, or living parents to serve as decision-makers. She states that his next of kin only includes herself, his brother Mr. Houston Post, and his other brother Mr. Reggie Post. Ms. Bustillo states that she has been in close contact with her 2 brothers and they are all in agreement. She states that Mr. Yovanny Post would never want to have a feeding tube or any artificial life support. She states that he currently has a poor quality of life and has mentioned to her multiple times that, should he be in such a situation as he is now, that he would prefer to be comfortable and enroll in hospice services. She states that her other 2 brothers agree with this and believe that it is most consistent with his wishes. With the assistance of case management, hospice was arranged and he was discharged home to [facility] on hospice services. On 07/09/2022, he was seen on morning rounds and deemed medically stable for discharge. His sister was given the opportunity to ask questions and reported no further questions. Furthermore, all questions were answered to the best of my ability. Today, I personally spent 20 minutes on his case, of which greater than 50% of the time was spent in patient education, counseling, and coordination of care as described above. - Physical Exam General: Unresponsive HEENT: Atraumatic, Mucous membr. moist/pink, Sclerae nonicteric Neck: Supple, JVD not distended Respiratory: Normal air movement, Diminished Cardiovascular: No edema, Regular rate/rhythm, Normal S1 S2, No gallops, No rubs, No murmurs Gastrointestinal: Normal bowel sounds, Soft and benign, Non-distended, No tenderness, No rebound, No guarding Musculoskeletal: No clubbing Integumentary: No rashes Neurological: Other (unable to assess given mental status) Vital Signs/Physical Exam: Temp Pulse Resp BP Pulse Ox 97.6 F 94 H 18 127/83 96 07/09/22 04:00 07/09/22 04:00 07/09/22 04:00 07/09/22 04:00 07/09/22 04:00 Laboratory Data at Discharge: WBC 8.60 K/uL (4.3-10.9) 07/08/22 02:05 Hgb 12.9 g/dL (13.6-17.9) L 07/08/22 02:05 Hct 40.6 % (39.6-49.0) 07/08/22 02:05 Plt Count 382 K/uL (152-406) 07/08/22 02:05 PT 12.6 SECONDS (9.5-12.5) H 07/07/22 17:05 INR 1.14 07/07/22 17:05 APTT 31.1 SECONDS (24.3-36.9) 07/07/22 11:50 Sodium 149 mmol/L (136-145) H 07/08/22 02:05 Potassium 3.7 mmol/L (3.5-5.1) 07/08/22 02:05 BUN 47 mg/dL (7-18) H 07/08/22 02:05 Creatinine 1.48 mg/dL (0.55-1.3) H 07/08/22 02:05 Glucose 164 mg/dL (74-106) H 07/08/22 02:05 Phosphorus 3.2 mg/dL (2.5-4.9) 07/07/22 17:05 Magnesium 2.2 mg/dL (1.8-2.4) 07/07/22 17:05 Total Bilirubin 0.6 mg/dL (0.2-1.0) 07/07/22 17:05 AST 33 U/L (15-37) 07/07/22 17:05 ALT 22 U/L (12-78) 07/07/22 17:05 Alkaline Phosphatase 44 U/L (45-117) L 07/07/22 17:05 Home Medications: Aspirin 81 mg PO DAILY 05/07/22 Cyclobenzaprine HCl [Flexeril] 1 tab PO BEDTIME 05/07/22 Duloxetine HCl [Cymbalta] 60 mg PO BID 05/07/22 Famotidine [Pepcid] 20 mg PO BID 05/07/22 Fenofibrate [Tricor*] 145 mg PO BEDTIME 05/07/22 Nifedipine [Nifedipine ER] 90 mg PO DAILY 05/07/22 Tamsulosin [Flomax*] 1 tab PO DAILY 05/07/22 Baclofen [Lioresal*] 10 mg PO Q12HP 06/25/22 Codeine/APAP [Tylenol #3*] 1 tab PO Q6HR 06/25/22 Montelukast [Singulair*] 10 mg PO BEDTIME 06/25/22 Omeprazole 20 mg PO DAILY 06/25/22 Atorvastatin Calcium [Lipitor] 40 mg PO BEDTIME tab 06/27/22 Clopidogrel Bisulfate [Plavix*] 75 mg PO DAILY 06/27/22 Benzonatate 1 tab PO Q8HR 07/07/22 Diphenhydramine [Benadryl*] 1 tab PO BEDTIME 07/07/22 Diet: Regular Activity: Bedrest Followup: NONE,NONE [Primary Care Provider] - Time spent managing pt's care (in minutes): 20
[2022-07-09] MEDS ORDERED: HYDROMORPHONE HCL 1 MG/ML INJ ONE (13:15)
[2022-07-09] MEDS ORDERED: D5 0.9 NS 1,000 ML IV ONE (13:16)
[2022-07-09 16:17] VITALS: TEMP 98.5
[2022-07-09 16:30] VITALS: BP 129/86; O2SAT 97
--- NOTE | 2022-07-09 22:43 | CON ---
Date of Consultation: 07/08/[address] Starks. Reason For Consultation: Elevated troponin. History Of Present Illness: Mr. Post is 66, was admitted with failure to thrive, recent CVA, altered mental status. He has a history of CVA; depression; congestive heart failure; alcohol abuse; hemipa resis; cerebrovascular disease, status post stroke. No cardiac symptoms reported. Troponin was 114. His CPK was 491, consistent with rhabdomyolysis. His creatinine was 1.48. He had a normal echocar diogram in 2019. Carotid Doppler showed 100% occlusion of the right internal carotid artery with mod erate disease on the left. Past Medical History: As stated above. Allergies: NONE. Review of Systems: Negative. Social History: Negative. Family History: Noncontributory. Medications: Include aspirin, Lipitor, Plavix, Tricor, nifedipine, Flomax, and Pepcid. Physical Examination: Vital signs: Stable, afebrile. HEENT: Negative. Neck: Supple with no bruit. Chest: Clear. Cardiac: Revealed a regular rhythm and rate with S4, gallops. No murmurs or rubs. Abdomen: Benign. Extremities: Revealed no clubbing, cyanosis, or edema. Diagnostic Data: As stated earlier. Impression And Plan: 1.Failure to thrive with altered mental status, possibly secondary to rhabdomyolysis. 2.History of cerebrovascular accident with severe carotid disease on the right with 100% occlusion. The left side had moderate carotid disease. 3.Depression. 4.History of congestive heart failure, although he had an echocardiogram that was normal in 2019. 5.His other problems include history of alcohol abuse, dyslipidemia, hypertension, gastroesophageal reflux disease, benign prostatic hypertrophy. All of those are normal. I would personally gently hy drate him. This is not an acute coronary syndrome. Repeating an echocardiogram may be reasonable. I will continue to follow. Continue his present regimen at home. MORENITA/RAMONA Voice ID: [id number] Report ID: [id number]
== END 2022-07-09 15:55 | disposition hospice, inpatient (51) | DRG 64 ==
LOC: ER 10:06 → ERHOLD 14:19
PROVIDERS: ADMIT Internal Medicine; ATTEND Internal Medicine
DX: I63.9 Cerebral infarction, unspecified (principal); G93.41 Metabolic encephalopathy; M62.82 Rhabdomyolysis; N17.9 Acute kidney failure, unspecified; E87.0 Hyperosmolality and hypernatremia; K21.9 Gastro-esophageal reflux disease without esophagitis; I12.9 Hypertensive chronic kidney disease with stage 1 through stage 4 chronic kidney disease, or unspecified chronic kidney disease; N18.31 Chronic kidney disease, stage 3a; M19.90 Unspecified osteoarthritis, unspecified site; J44.9 Chronic obstructive pulmonary disease, unspecified; F32.A Depression, unspecified; F41.9 Anxiety disorder, unspecified; I69.398 Other sequelae of cerebral infarction; I65.23 Occlusion and stenosis of bilateral carotid arteries; G47.00 Insomnia, unspecified; E86.0 Dehydration; N40.0 Benign prostatic hyperplasia without lower urinary tract symptoms; D50.9 Iron deficiency anemia, unspecified; R77.8 Other specified abnormalities of plasma proteins; Z51.5 Encounter for palliative care; Z66 Do not resuscitate; Z68.24 Body mass index [BMI] 24.0-24.9, adult; Z79.02 Long term (current) use of antithrombotics/antiplatelets; Z79.82 Long term (current) use of aspirin; Z79.899 Other long term (current) drug therapy; Z20.822 Contact with and (suspected) exposure to COVID-19
CPT/HCPCS: 36415; 70450; 71045; 80048; 80053; 80076; 81003; 81015; 82550; 83036; 83605; 83735; 83880; 84100; 84439; 84443; 84484; 85025; 85610; 85730; 87040; 87086; 87088; 87205; 87811; 92610; 93005; 96360; 96361; 99285; J1170; J2405; J3480; J7030; J7042